=== PATIENT | female | born 1945 | race Caucasian/White ===

== ENCOUNTER 2016-08-30 23:26 | Emergency (ER) | payer MEDICARE, BC ==
[2016-08-31] MEDS ORDERED: hydrOXYzine HCl 50 MG/ML SDV IM ONE (00:31)
[2016-08-31] MEDS ORDERED: Menthol/Zinc Oxide Ointment 113 GM Tube TOP PRN (00:33)
[2016-08-31] MEDS ORDERED: Menthol/Zinc Oxide Ointment 113 GM Tube TOP ONE (00:35)
[2016-08-31 00:47] VITALS: BP 140/82
--- NOTE | 2016-09-02 10:36 | ER ---
DATE SEEN: 08/30/2016 CHIEF COMPLAINT: 1. Anal pain secondary to loose semi-formed stools. 2. Diarrhea x4 of loose semi-formed stools. 3. Intermittent history of irritable bowel syndrome. 4. Rectal pain with anal bleeding secondary to wiping her rectum too many times. 5. Mild abdominal pain. HISTORY OF PRESENT ILLNESS: This 71-year-old nulliparous nonsmoking woman went to a birthday alliance party at 1830 hours this 08/29/2016, had roast beef, sandwich, baked beans, and potato salad, and 1 hour later, began to have mild cramping and loose semi-formed stools. Prior to this, she had a long history of intermittent sinus problems and was treated for sinusitis secondary to associated symptoms of small bloody nasal discharge, nasal discomfort, sinus pressure associated with chronic allergies and chronic previous multiple nasal surgeries and turbinate resections and drainage of the sinuses. In the past, she had weekly allergy shots and also had intermittent intranasal steroid shots. The latter was stopped since the allergy shot was effective. Approximately 2 years ago, she has had significant sinus congestion problems. She had tried Neti pots in the past; however, that resulted in vomiting and nausea. Now, she uses Simply Saline, [employer] product, and that seems to diminish some of her nasal discomfort. She does not use bacitracin. PAST SURGICAL HISTORY: Previous nasal surgery several, hiatus hernia surgery, forefoot surgery, brain tumor surgery, facial surgery, multiple repair of cleft lip, tonsillectomy, deviated septum surgery x2, cholecystectomy, appendectomy. ALLERGIES: Multiple. Includes codeine, hydrocodone, latex, triamcinolone, Demerol, latex. CURRENT MEDICATIONS: 1. Nexium 40 mg daily. 2. Enalapril 40 mg daily. 3. Cranberry extract. 4. GenTeal 0.25-0.3% gel drops. 5. Thyroxine sodium 25 mcg. 6. Lactulose 10 g daily p.r.n. 7. Cortisone acetate. 8. Anusol-HC p.r.n. She thinks she has this cream at home but is not sure. She has not used it recently. 9. Gabapentin 400 mg daily. 10.Famotidine 20 mg daily. 11.Potassium chloride 20 mEq daily. 12.Ospemifene 60 mg daily. 13.Norethindrone 10 mg daily. 14.Zolpidem 5 mg daily. 15.Verapamil 180 mg daily. 16.Atorvastatin 20 mg daily. REVIEW OF SYSTEMS: Sinus headaches. No compromise of vision. CARDIOVASCULAR: No shortness of breath. No chest pain. No irregular heartbeat. GI: She has GERD with associated hiatus hernia. Mild intermittent abdominal discomfort with periods of loose stool and then followed by constipation (IBS). : Nulliparous. MUSCULOSKELETAL: Arthritis, mild. NEURO: Negative. Depression negative. PHYSICAL EXAMINATION: VITAL SIGNS: Blood pressure 136/76. Heart rate 84, respirations 18, oxygen saturation 97%, and temperature 36.6 degrees. CONSTITUTIONAL: The patient is in mild distress. Slightly overweight. Notable anterior facial surgery upper lip, which is quite remarkable. TMs negative. Pharynx without abnormality. NECK: Supple. No bruits, no masses, no thyromegaly. LUNGS: Clear to auscultation without rales, rhonchi, or wheezes. HEART: S1, S2. No murmur. No irregular rate and rhythm. ABDOMEN: Soft. No guarding. No rebound. Bowel sounds increased. No distention. No tympani. No CVA percussion tenderness. No pelvic exam or rectal exam performed. EXTREMITIES: Lower extremities without edema. Deep tendon reflexes are normoactive, upper and lower extremities. Cranial nerves 2 through 12 intact. Gait appropriate. ASSESSMENT: 1. Anal irritation, ulceration secondary to semi-loose stools. 2. Probable food poisoning after onset of symptoms 1 hour after onset of eating roast beef, baked beans, and potato salad. No one else got sick. 3. Possible Clostridium difficile. Specimen ordered to be obtained. 4. Tenth day of Augmentin treatment for sinusitis. 5. Multiple sinus surgeries, two septal surgeries, sinus drainage, turbinate resection, cholecystectomy, appendectomy, hiatus hernia surgery, forefoot surgery, brain tumor surgery, facial cleft lip repair, tonsillectomy. PLAN: 1. Use Anusol-HC (we do not have that in the hospital, but have a substitute), Risamine ointment which has aloe calamine, and chlorothymol. Apply p.r.n. 2. Shot of Vistaril 50 mg IM. 3. No pain medicine prescribed. ADDITIONAL COMMENT: The patient apparently had illness several years ago with vomiting of blood, started to have proximal tear of the esophagus, was hospitalized for several days. Resolved spontaneously, Ashley-Bhatt tear. The patient was seen at 0030 hours on 08/31/2016. /[id number] RADHA/HEIDI
== END 2016-08-31 00:50 | disposition home or self-care (01) ==
LOC: FB.ED 23:26
DX: K62.89 Other specified diseases of anus and rectum (principal); R19.7 Diarrhea, unspecified; Z90.49 Acquired absence of other specified parts of digestive tract; Z98.890 Other specified postprocedural states; Z91.040 Latex allergy status; Z88.5 Allergy status to narcotic agent; Z88.8 Allergy status to other drugs, medicaments and biological substances
CPT/HCPCS: 96372; 99283; A9270; J3410

== ENCOUNTER 2016-10-27 23:43 | Emergency (ER) | payer MEDICARE, BC ==
[2016-10-28] MEDS ORDERED: Sodium Chloride 0.9% 10 ML Syringe FLUSH PRN (00:03)
[2016-10-28] MEDS ORDERED: Ondansetron 4 MG/2 ML SDV IVPUSH ONE (00:05)
[2016-10-28] MEDS ORDERED: Ketorolac 30 MG/ML SDV IVPUSH ONE (00:11)
[2016-10-28] MEDS ORDERED: Sodium Chloride 0.9% 1,000 ML IV SCH (00:15)
--- NOTE | 2016-10-28 00:17 | EDM.PDOC ---
ED HPI GENERAL MEDICAL PROBLEM - General Chief Complaint: General Time Seen by Provider: 10/27/16 23:50 Source of Information: Reports: Patient History Limitations: Reports: No Limitations - History of Present Illness INITIAL COMMENTS - FREE TEXT/NARRATIVE: c/o N, V, and epigastric pain x 6h pt had "neck adjustment" at chiropracter at 3 PM, she had GI sxs since 6 PM, no diarrhea, did not eat supper, has felt hot and sweaty, no chills no BM today, had loose stools x 3 yesterday declined GI cocktail, says it causes N only abd surgery is HH repair 5-6y ago, had been on Nexium, no longer since surgery only cracker and cheese to eat since bfast has apt tomorrow in [place] to evaluate hematuria abd/pelvic CT with and without contrast 1m ago was neg never smoked - Related Data Allergies Allergy/AdvReac Type Severity Reaction Status Date / Time codeine Allergy Swelling Verified 10/27/16 23:57 hydrocodone Allergy Cannot Verified 10/27/16 23:57 Remember latex Allergy Cannot Verified 10/27/16 23:57 Remember phenylephrine HCl Allergy Cannot Verified 10/27/16 23:57 [From Mydfrin] Remember triamcinolone acetonide Allergy Other Verified 10/27/16 23:57 [From Kenalog] meperidine HCl [From Demerol] AdvReac Nausea and Verified 10/27/16 23:57 Vomiting Home Meds: Home Meds Carboxymethylcell/Hypromellose [GenTeal 0.25-0.3% Gel Drops] 1 drop EYEBOTH ASDIRECTED PRN 08/21/14 [History] Cranberry Extract [Cranberry] 1,000 mg PO DAILY 08/21/14 [History] Enalapril Maleate [Enalapril Maleate] 40 mg PO DAILY 08/21/14 [History] Esomeprazole [NexIUM] 40 mg PO DAILY 08/21/14 [History] Gabapentin [Gabapentin] 400 mg PO DAILY 08/21/14 [History] Hydrocortisone Acetate [Anucort-Hc] 25 mg RECTAL BID PRN 08/21/14 [History] Lactulose 10 gm PO DAILY PRN 08/21/14 [History] Levothyroxine Sodium [Synthroid] 25 mcg PO DAILY 08/21/14 [History] Meloxicam [Meloxicam] 15 mg PO DAILY 08/21/14 [History] Norethindrone [Aygestin] 10 mg PO DAILY 08/21/14 [History] Ospemifene [Osphena] 60 mg PO DAILY 08/21/14 [History] Potassium Chloride 20 meq PO BID 08/21/14 [History] Tretinoin 1 applic TOP DAILY 08/21/14 [History] Verapamil HCl [Verapamil Sr] 180 mg PO DAILY 08/21/14 [History] Zolpidem Tartrate [Ambien] 5 mg PO DAILY PRN 08/21/14 [History] atorvaSTATin [Lipitor] 20 mg PO DAILY 08/21/14 [History] Famotidine 20 mg PO DAILY #14 tablet 10/20/15 [Rx] Metoclopramide [Reglan] 5 mg PO QIDACANDBED #12 tablet 10/28/16 [Rx] Omeprazole 20 mg PO DAILY #10 cap.cr 10/28/16 [Rx] Past Medical History - Past Health History Medical/Surgical History: Denies Medical/Surgical History HEENT History: Reports: Impaired Vision Cardiovascular History: Reports: High Cholesterol, Hypertension Gastrointestinal History: Reports: Chronic Constipation, Hiatal Hernia Other Neuro History: Brain tumor-benign Endocrine/Metabolic History: Reports: Hypothyroidism - Past Surgical History Musculoskeletal Surgical History: Reports: Other (See Below) Social & Family History - Family History Family Medical History: Unobtainable - Tobacco Use Smoking Status *Q: Never Smoker - Caffeine Use Caffeine Use: Reports: Soda - Alcohol Use Days Per Week of Alcohol Use: 0 - Recreational Drug Use Recreational Drug Use: No ED ROS GENERAL - Review of Systems Review Of Systems: See Below Constitutional: Reports: Diaphoresis HEENT: Reports: No Symptoms Respiratory: Reports: No Symptoms Cardiovascular: Reports: No Symptoms Endocrine: Reports: No Symptoms GI/Abdominal: Reports: Abdominal Pain, Nausea, Vomiting : Reports: No Symptoms Musculoskeletal: Reports: No Symptoms Skin: Reports: No Symptoms Neurological: Reports: No Symptoms Psychiatric: Reports: No Symptoms Hematologic/Lymphatic: Reports: No Symptoms Immunologic: Reports: No Symptoms ED EXAM, GENERAL - Physical Exam Exam: See Below Exam Limited By: No Limitations General Appearance: Alert, WD/WN, Mild Distress Ears: Normal External Exam, Hearing Grossly Normal Nose: Normal Inspection, Normal Mucosa, No Blood Throat/Mouth: Normal Inspection, Normal Lips, Normal Teeth, Normal Gums, Normal Voice, No Airway Compromise Head: Atraumatic, Normocephalic Neck: Normal Inspection, Supple, Non-Tender, Full Range of Motion Respiratory/Chest: No Respiratory Distress, Lungs Clear, Normal Breath Sounds, No Accessory Muscle Use, Chest Non-Tender Cardiovascular: Regular Rate, Rhythm, No Edema, No Gallop, No JVD, No Rub GI/Abdominal: Normal Bowel Sounds, Soft, No Organomegaly, No Distention, No Mass , Other (1+ epigastric tender) Back Exam: Normal Inspection, Full Range of Motion, NT Extremities: Normal Inspection, Normal Range of Motion, Non-Tender, No Pedal Edema, Other (dec'd turgor UE without tenting) Neurological: Alert, Oriented, CN II-XII Intact, Normal Cognition, No Motor/ Sensory Deficits Psychiatric: Normal Affect, Normal Mood Skin Exam: Warm, Dry, Intact, Normal Color, No Rash Lymphatic: No Adenopathy Course - Vital Signs Last Recorded V/S: Last Vital Signs Temp 36.8 C 10/28/16 01:45 Pulse 76 10/28/16 00:01 Resp 20 10/28/16 01:45 BP 124/72 10/28/16 01:45 Pulse Ox 98 10/28/16 01:45 - Orders/Labs/Meds Orders: Active Orders 24 hr Category Date Time Status EKG Documentation Completion [RC] ASDIRECTED Care 10/28/16 00:07 Active Abdomen 2V AP Flat Upright [CR] Stat Exams 10/28/16 00:15 Ordered Abdomen 2V AP Flat Upright [CR] Stat Exams 10/28/16 00:15 Taken LIPASE [REF] Stat Lab 10/28/16 00:30 Received Sodium Chloride 0.9% [Normal Saline] 1,000 ml Med 10/28/16 00:15 Active IV ASDIRECTED Sodium Chloride 0.9% [Saline Flush] Med 10/28/16 00:03 Active 10 ml FLUSH ASDIRECTED PRN Saline Lock Insert [OM.PC] Routine Oth 10/28/16 00:03 Ordered EKG 12 Lead [EK] Routine Ther 10/28/16 00:07 Ordered Medication Orders Sodium Chloride (Normal Saline) 1,000 mls @ 999 mls/hr IV ASDIRECTED JESE Stop: 11/01/16 00:04 Last Admin: 10/28/16 00:25 Dose: 999 mls/hr Sodium Chloride (Saline Flush) 10 ml FLUSH ASDIRECTED PRN PRN Reason: Keep Vein Open Last Admin: 10/28/16 00:26 Dose: 10 ml Labs: Laboratory Tests 10/28/16 10/28/16 10/28/16 Range/Units 00:30 00:30 00:30 WBC 12.1 H (4.5-12.0) X10-3/uL RBC 4.65 (3.23-5.20) x10(6)uL Hgb 14.4 (11.5-15.5) g/dL Hct 42.7 (30.0-51.3) % MCV 91.8 (80-96) fL MCH 31.0 (27.7-33.6) pg MCHC 33.7 (32.2-35.4) g/dL RDW 12.5 (11.5-15.5) % Plt Count 254 (125-369) X10(3)uL MPV 10.1 (7.4-10.4) fL Add Manual Diff Yes Neutrophils % (Manual) 88 H (46-82) % Band Neutrophils % 2 (0-6) % Lymphocytes % (Manual) 7 L (13-37) % Monocytes % (Manual) 3 L (4-12) % Sodium 140 (135-145) mmol/L Potassium 3.7 (3.5-5.3) mmol/L Chloride 104 (100-110) mmol/L Carbon Dioxide 22 L (23-29) mmol/L BUN 15 D (8-23) mg/dL Creatinine 0.9 (0.6-1.3) mg/dL Est Cr Clr Drug Dosing 52.34 mL/min Estimated GFR (MDRD) > 60 (>60) BUN/Creatinine Ratio 16.7 (9-20) Glucose 150 H (80-116) mg/dL Calcium 10.8 H (8.6-10.2) mg/dL Total Bilirubin 0.9 (0.1-1.3) mg/dL AST 28 H (5-27) IU/L ALT 28 H D (14-26) IU/L Alkaline Phosphatase 67 (56-112) IU/L Troponin I < 0.01 L (0.02-0.06) NG/ML C-Reactive Protein 1.0 (0.0-1.0) mg/dL Total Protein 8.3 H (6.0-8.0) g/dL Albumin 4.7 H (3.2-4.6) g/dL Globulin 3.6 g/dL Albumin/Globulin Ratio 1.3 Amylase 61 (28-100) U/L Urine Color (YELLOW) Urine Appearance (CLEAR) Urine pH (5.0-6.5) Ur Specific [place] (1.010-1.025) Urine Protein (NEGATIVE) mg/dL Urine Glucose (UA) (NEGATIVE) mg/dL Urine Ketones (NEGATIVE) mg/dL Urine Occult Blood (NEGATIVE) Urine Nitrite (NEGATIVE) Urine Bilirubin (NEGATIVE) Urine Urobilinogen (NEGATIVE) mg/dL Ur Leukocyte Esterase (NEGATIVE) Urine RBC (0) Urine WBC (0) Ur Squamous Epith Cells (NS,R,O) Urine Bacteria (NS) Urine Mucus (NS) 10/28/16 Range/Units 01:30 WBC (4.5-12.0) X10-3/uL RBC (3.23-5.20) x10(6)uL Hgb (11.5-15.5) g/dL Hct (30.0-51.3) % MCV (80-96) fL MCH (27.7-33.6) pg MCHC (32.2-35.4) g/dL RDW (11.5-15.5) % Plt Count (125-369) X10(3)uL MPV (7.4-10.4) fL Add Manual Diff Neutrophils % (Manual) (46-82) % Band Neutrophils % (0-6) % Lymphocytes % (Manual) (13-37) % Monocytes % (Manual) (4-12) % Sodium (135-145) mmol/L Potassium (3.5-5.3) mmol/L Chloride (100-110) mmol/L Carbon Dioxide (23-29) mmol/L BUN (8-23) mg/dL Creatinine (0.6-1.3) mg/dL Est Cr Clr Drug Dosing mL/min Estimated GFR (MDRD) (>60) BUN/Creatinine Ratio (9-20) Glucose (80-116) mg/dL Calcium (8.6-10.2) mg/dL Total Bilirubin (0.1-1.3) mg/dL AST (5-27) IU/L ALT (14-26) IU/L Alkaline Phosphatase (56-112) IU/L Troponin I (0.02-0.06) NG/ML C-Reactive Protein (0.0-1.0) mg/dL Total Protein (6.0-8.0) g/dL Albumin (3.2-4.6) g/dL Globulin g/dL Albumin/Globulin Ratio Amylase (28-100) U/L Urine Color Yellow (YELLOW) Urine Appearance Slightly cloudy (CLEAR) Urine pH 7.0 H (5.0-6.5) Ur Specific [place] 1.010 (1.010-1.025) Urine Protein 30 H (NEGATIVE) mg/dL Urine Glucose (UA) Normal (NEGATIVE) mg/dL Urine Ketones 15 H (NEGATIVE) mg/dL Urine Occult Blood Large H (NEGATIVE) Urine Nitrite Negative (NEGATIVE) Urine Bilirubin Negative (NEGATIVE) Urine Urobilinogen Normal (NEGATIVE) mg/dL Ur Leukocyte Esterase Negative (NEGATIVE) Urine RBC 5-10 (0) Urine WBC 0-5 (0) Ur Squamous Epith Cells Moderate H (NS,R,O) Urine Bacteria Few H (NS) Urine Mucus Few H (NS) Meds: Medications Generic Name Dose Route Start Last Admin Trade Name Freq PRN Reason Stop Dose Admin Sodium Chloride 1,000 mls @ 999 mls/hr 10/28/16 00:15 10/28/16 00:25 Normal Saline IV 11/01/16 00:04 999 mls/hr ASDIRECTED JESE Administration Sodium Chloride 10 ml 10/28/16 00:03 10/28/16 00:26 Saline Flush FLUSH 10 ml ASDIRECTED PRN Administration Keep Vein Open Discontinued Medications Generic Name Dose Route Start Last Admin Trade Name Freq PRN Reason Stop Dose Admin Al Hydroxide/Mg Hydroxide 30 0 ml 10/28/16 00:07 10/28/16 00:41 ml/ Lidocaine HCl 15 ml PO 10/28/16 00:08 Not Given ONETIME ONE Ketorolac Tromethamine 15 mg 10/28/16 00:11 10/28/16 00:24 Toradol IVPUSH 10/28/16 00:12 15 mg ONETIME ONE Administration Lidocaine HCl Confirm 10/28/16 00:22 10/28/16 00:40 Xylocaine 2% Viscous Administered 10/28/16 00:23 Not Given Dose 15 ml .ROUTE .STK-MED ONE Ondansetron HCl 4 mg 10/28/16 00:05 10/28/16 00:25 Zofran IVPUSH 10/28/16 00:06 4 mg ONETIME ONE Administration - Re-Assessments/Exams Free Text/Narrative Re-Assessment/Exam: 10/28/16 01:53 pt states she is feeling much better after 1 liter NS and Toradol and Zofran, abd is still mildly distended, no epigastric tenderness. KUB shows a large amount of air distending the stomach, pt reports she was swallowing air this afternoon when driving back from [place]. 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 (which pt attributes to GI cocktail), she was hospitalized in [place] x 4d, no source apparently found labs c/w dehydration (inc'd alb and TP and calcium), mild inc'd LFTs is old, WBC 12 with slight shift c/w extreme anxiety and vomiting when she arrived pt did take promethazine 25 mg PO at home home along with cyclobenzaprine 10 mg PO after her chiropractor visit will defer on placing an NG to decompress stomach as pt is now without sxs 10/28/16 02:24 u/a showing ketones and 5-10 RBC, pt states no EGD was done 1y ago, which will be a consideration if she has more sxs, does take Tums prn and took some this PM, prefers omeprazole to Nexium as it will be covered by her insurance Departure - Departure Time of Disposition: 02:27 Disposition: Home, Self-Care 01 Condition: Good Clinical Impression: Stomach spasm, Air swallowing Gastritis Qualifiers: Gastritis type: unspecified gastritis Chronicity: acute Gastritis bleeding: without bleeding Qualified Code(s): K29.00 - Acute gastritis without bleeding - Discharge Information Prescriptions: Metoclopramide [Reglan] 5 mg PO QIDACANDBED #12 tablet Omeprazole 20 mg PO DAILY #10 cap.cr Forms: ED Department Discharge Additional Instructions: To decrease acid production, take omeprazole 20 mg 1 tab daily for 10 days. To relax the stomach (and help with nausea), take metoclopramide 5 mg before meals and bedtime for 3 days. To neutralize acid, take two Tums 1-2 hours after meals and bedtime for 3 days. Increase fluids, at least 2 liters today without caffeine. See your doctor in 2-3 days. Return to ED if you are feeling worse. Call your Physician or Return to Emergency Department if: * Your condition worsens in any way. * You develop fever greater than 100.4. * You have vomitting that does not stop with medications. * You have pain that is not controlled with medications. - My Orders Last 24 Hours: My Active Orders 10/28/16 00:03 Sodium Chloride 0.9% [Saline Flush] 10 ml FLUSH ASDIRECTED PRN Saline Lock Insert [OM.PC] Routine 10/28/16 00:07 EKG Documentation Completion [RC] ASDIRECTED EKG 12 Lead [EK] Routine 10/28/16 00:15 Abdomen 2V AP Flat Upright [CR] Stat Abdomen 2V AP Flat Upright [CR] Stat Sodium Chloride 0.9% [Normal Saline] 1,000 ml IV ASDIRECTED 10/28/16 00:30 LIPASE [REF] Stat - Assessment/Plan Last 24 Hours: My Active Orders 10/28/16 00:03 Sodium Chloride 0.9% [Saline Flush] 10 ml FLUSH ASDIRECTED PRN Saline Lock Insert [OM.PC] Routine 10/28/16 00:07 EKG Documentation Completion [RC] ASDIRECTED EKG 12 Lead [EK] Routine 10/28/16 00:15 Abdomen 2V AP Flat Upright [CR] Stat Abdomen 2V AP Flat Upright [CR] Stat Sodium Chloride 0.9% [Normal Saline] 1,000 ml IV ASDIRECTED 10/28/16 00:30 LIPASE [REF] Stat
[2016-10-28] MEDS: Alum Hydroxide/Mag Hydroxide 30 ML, Lidocaine 2% 15 ML PO ONE ×4 (00:20→00:41)
[2016-10-28] MEDS ORDERED: Lidocaine 2% Viscous Solution 15 ML Cup ONE (00:22)
[2016-10-28 02:13] VITALS: BP 124/72
[2016-10-28] MEDS ORDERED: Pantoprazole 40 MG Tab.CR PO ONE (02:26)
--- NOTE | 2016-10-29 13:53 | CR ---
INDICATION: Epigastric pain. History of constipation. ABDOMEN SUPINE AND ERECT: FINDINGS: The patient just recently had a CT scan abdomen performed on 2016. I have that study for review. On the current x-rays, the stomach is distended. It is much more so distended than on the earlier CT. There is prominent fluid level on the upright view. I did go back and look at that CT. I do not see a definite mass or specific explanation for the distended stomach on that earlier CT. It is possible that the patient has just recently eaten. Or, for what ever reason, the patient may have some delayed passage of contents from the stomach. I am not necessarily certain that the distended stomach is pathologic for this patient. It may not be unreasonable to do a follow-up x-ray to confirm that the gastric distention does indeed resolve, however. Otherwise, there is some air and fluid that is identified throughout the remainder of the small and large bowel. I do not see disproportion of dilatation in either small or large bowel that would suggest either small or large bowel obstruction. As by CT, there is a moderate amount of stool throughout the colon. There has been previous surgery. The patient has had a previous spine fusion in the lower thoracic/upper lumbar region. 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 There are a few phleboliths in the pelvis. There is some costochondral cartilage calcification. No other unexpected masses or fluid collections. IMPRESSION: 1. The most pronounced finding on the study is a very distended stomach with a prominent fluid level. This appearance is much more pronounced than on earlier imaging from 09/24/2016. I am not entirely certain as to the exact significance of this appearance for this patient. Please clinically correlate for any history of vomiting or symptoms to suggest gastric outlet obstruction. It may not be unreasonable to do a follow-up x-ray to confirm that this appearance does indeed resolve. 2. I otherwise do not see any other potentially acute, diagnostic abnormalities. [facility]
== END 2016-10-28 02:30 | disposition home or self-care (01) ==
LOC: FB.ED 23:43
DX: K29.00 Acute gastritis without bleeding (principal); K31.89 Other diseases of stomach and duodenum; H54.7 Unspecified visual loss; E78.00 Pure hypercholesterolemia, unspecified; I10 Essential (primary) hypertension; E03.9 Hypothyroidism, unspecified; Z88.5 Allergy status to narcotic agent; Z91.040 Latex allergy status; Z88.8 Allergy status to other drugs, medicaments and biological substances; Z79.899 Other long term (current) drug therapy; Z98.890 Other specified postprocedural states
CPT/HCPCS: 36415; 74020; 80053; 81001; 82150; 83690; 84484; 85025; 86140; 93005; 96361; 96374; 96375; 99284; A9270; J1885; J2405; J7040; J7050

== ENCOUNTER 2017-06-08 20:21 | Inpatient (IN) | payer MEDICARE, BC ==
--- NOTE | 2017-06-08 20:42 | EDM.PDOC ---
ED HPI GENERAL MEDICAL PROBLEM - General Chief Complaint: Respiratory Problem Stated Complaint: SINUSINFECTION Time Seen by Provider: 06/08/17 20:21 Source of Information: Reports: Patient, Family History Limitations: Reports: Physical Impairment (dizzy and nauseated) - History of Present Illness INITIAL COMMENTS - FREE TEXT/NARRATIVE: 72 y.o.w.f with multiple medical issues came to the ed due to sinus tenderness weakness and orthostatic hypotension. No N/V/D. pt has an apointment on 2017 with her pharmacist because she is on too many meds. BP 127/88 pulse 105 RR 18 temp 38.1 Onset Date: 05/26/17 Onset Time: 07:00 Duration: Week(s):, Getting Worse, Intermittent Location: Reports: Generalized Quality: Reports: Ache (RUQ), Burning Severity: Moderate Improves with: Reports: None Worsens with: Reports: None Context: Reports: Sick Contact ((?)) Associated Symptoms: Reports: Malaise, Nausea/Vomiting, Weakness - Related Data Allergies Allergy/AdvReac Type Severity Reaction Status Date / Time codeine Allergy Swelling Verified 06/08/17 20:35 hydrocodone Allergy Cannot Verified 06/08/17 20:35 Remember latex Allergy Cannot Verified 06/08/17 20:35 Remember phenylephrine HCl Allergy Cannot Verified 06/08/17 20:35 [From Mydfrin] Remember triamcinolone acetonide Allergy Other Verified 06/08/17 20:35 [From Kenalog] meperidine HCl [From Demerol] AdvReac Nausea and Verified 06/08/17 20:35 Vomiting Home Meds: Home Meds Carboxymethylcell/Hypromellose [GenTeal 0.25-0.3% Gel Drops] 1 drop EYEBOTH ASDIRECTED PRN 08/21/14 [History] Cranberry Extract [Cranberry] 1,000 mg PO DAILY 08/21/14 [History] Enalapril Maleate [Enalapril Maleate] 20 mg PO DAILY 08/21/14 [History] Gabapentin [Gabapentin] 400 mg PO DAILY 08/21/14 [History] Hydrocortisone Acetate [Anucort-Hc] 25 mg RECTAL BID PRN 08/21/14 [History] Lactulose 10 gm PO DAILY PRN 08/21/14 [History] Tretinoin 1 applic TOP DAILY 08/21/14 [History] Verapamil HCl [Verapamil Sr] 180 mg PO DAILY 08/21/14 [History] Amoxicillin/Potassium Clav [Augmentin 875-125 Tablet] 1 each PO BID #20 tablet 06/08/17 [Rx] Bacillus Coagulans [Probiotic] 1 each PO DAILY 06/08/17 [History] Hydrochlorothiazide 25 mg PO DAILY 06/08/17 [History] Hydrocortisone [Procto-Med Hc] 1 applic TOP BID PRN 06/08/17 [History] Levothyroxine [Synthroid] 50 mcg PO ACBREAKFAST 06/08/17 [History] Loratadine [Claritin] 10 mg PO DAILY 06/08/17 [History] Montelukast Sodium [Singulair] 10 mg PO BEDTIME 06/08/17 [History] Ondansetron [Zofran] 8 mg PO Q8H 06/08/17 [History] Pantoprazole Sodium [Protonix] 40 mg PO DAILY 06/08/17 [History] Rosuvastatin [Crestor] 10 mg PO DAILY 06/08/17 [History] Venlafaxine [Effexor XR] 75 mg PO DAILY 06/08/17 [History] guaiFENesin [Mucinex] 600 mg PO BID PRN 06/08/17 [History] Tetanus, Diphtheria Tox,Adult [Tetanus Diphtheria Toxoids] 0.5 ml IM ONETIME #1 vial 06/09/17 [Rx] Past Medical History - Past Health History Medical/Surgical History: Denies Medical/Surgical History HEENT History: Reports: Impaired Vision Cardiovascular History: Reports: High Cholesterol, Hypertension Gastrointestinal History: Reports: Chronic Constipation, Hiatal Hernia Other Neuro History: Brain tumor-benign Endocrine/Metabolic History: Reports: Hypothyroidism - Past Surgical History Musculoskeletal Surgical History: Reports: Other (See Below) Social & Family History - Family History Family Medical History: Unobtainable - Tobacco Use Smoking Status *Q: Never Smoker Second Hand Smoke Exposure: No - Caffeine Use Caffeine Use: Reports: Soda - Alcohol Use Days Per Week of Alcohol Use: 0 - Recreational Drug Use Recreational Drug Use: No ED ROS GENERAL - Review of Systems Review Of Systems: See Below Constitutional: Reports: Malaise, Weakness, Fatigue HEENT: Reports: Nosebleed (resolved [employer]), Rhinitis, Sinus Problem Respiratory: Reports: No Symptoms Cardiovascular: Reports: Blood Pressure Problem, Lightheadedness Endocrine: Reports: No Symptoms GI/Abdominal: Reports: Abdominal Pain (RUQ), Decreased Appetite, Nausea : Reports: No Symptoms Musculoskeletal: Reports: No Symptoms Skin: Reports: No Symptoms Neurological: Reports: Dizziness Psychiatric: Reports: No Symptoms Hematologic/Lymphatic: Reports: No Symptoms Immunologic: Reports: No Symptoms ED EXAM, GENERAL - Physical Exam Exam: See Below Exam Limited By: Other (weak) General Appearance: Alert, Mild Distress, Thin Eye Exam: Bilateral Eye: Nystagmus (bilat) Ears: Normal External Exam Ear Exam: Bilateral Ear: Auricle Normal Nose: Normal Inspection, Normal Mucosa Throat/Mouth: Normal Inspection Head: Atraumatic, Normocephalic Neck: Normal Inspection, Supple, Non-Tender, Full Range of Motion Respiratory/Chest: No Respiratory Distress, Lungs Clear, Normal Breath Sounds, Chest Non-Tender Cardiovascular: Normal Peripheral Pulses, Regular Rate, Rhythm, No Edema, No Gallop, No Murmur GI/Abdominal: Normal Bowel Sounds, Tender (RUQ of abdomen) (Female) Exam: Deferred Rectal (Female) Exam: Deferred Back Exam: Normal Inspection, Full Range of Motion Extremities: Normal Inspection, Normal Range of Motion, Non-Tender, No Pedal Edema Neurological: Alert, Oriented, CN II-XII Intact, Normal Cognition, Abnormal Gait (weak) Psychiatric: Normal Affect, Normal Mood Skin Exam: Warm, Dry, Intact, Normal Color, No Rash Lymphatic: No Adenopathy EKG INTERPRETATION EKG Date: 06/08/17 Time: 23:20 Rhythm: NSR Rate (Beats/Min): 99 [place]: Normal P-Wave: Present QRS: Normal ST-T: Normal QT: Normal Comparison: NA - No Prior EKG Course - Vital Signs Text/Narrative:: 72 y.o.w.f with multiple medical issues came to the ed due to sinus tenderness weakness and orthostatic hypotension. No N/V/D. pt has an apointment on 2017 with her pharmacist because she is on too many meds. BP 127/88 pulse 105 RR 18 temp 38.1 Her sBP dropped from 143 to 104 from supine to standing position PE: weak appering 72 y.o.w.f Imaging: Max facial: Sinusitis Labs: CBC nl BMP nl her GFR was 53 however Impression: Orthostatic hypotension, Nausea, RUQ abd. pain (gall bladder?), Dizziness, weakness, sinusitis. Multiple medical issues(?), severe nausea Tx: NS, Abx Reglan Reexam; Pt felt initially better but suddenly go again nauseated and felt week. She now had RUQ abd. pain. Plan: Admit to [facility]. Last Recorded V/S: Last Vital Signs Temp 37.6 C 06/09/17 04:00 Pulse 89 06/09/17 04:00 Resp 18 06/09/17 04:00 BP 123/77 06/09/17 04:00 Pulse Ox 97 06/09/17 04:00 - Orders/Labs/Meds Orders: Active Orders 24 hr Category Date Time Status Max Facial Sinus wo Cont [CT] Stat Exams 06/08/17 20:39 Taken Sodium Chloride 0.9% [Normal Saline] 1,000 ml Med 06/08/17 21:45 Active IV ASDIRECTED Medication Orders Gabapentin (Neurontin) 400 mg PO DAILY JESE Sodium Chloride (Normal Saline) 1,000 mls @ 125 mls/hr IV ASDIRECTED JESE Last Admin: 06/08/17 21:30 Dose: 999 mls/hr Promethazine HCl 12.5 mg/ (Sodium Chloride) 50.5 mls @ 200 mls/hr IV Q6H PRN PRN Reason: Nausea/Vomiting Levothyroxine Sodium (Synthroid) 50 mcg PO ACBREAKFAST JESE Non-Formulary Medication (Tretinoin [Tretinoin]) 1 applic TOP DAILY JESE Non-Formulary Medication (Verapamil Hcl [Verapamil Sr]) 180 mg PO DAILY JESE Pantoprazole Sodium (Protonix) 40 mg PO DAILY JESE Labs: Laboratory Tests 06/08/17 06/08/17 06/08/17 Range/Units 20:55 20:55 20:55 WBC 5.3 (4.5-12.0) X10-3/uL RBC 4.10 (3.23-5.20) x10(6)uL Hgb 12.7 (11.5-15.5) g/dL Hct 36.9 (30.0-51.3) % MCV 89.9 (80-96) fL MCH 31.1 (27.7-33.6) pg MCHC 34.5 (32.2-35.4) g/dL RDW 12.9 (11.5-15.5) % Plt Count 182 (125-369) X10(3)uL MPV 9.5 (7.4-10.4) fL Add Manual Diff Yes Neutrophils % (Manual) 75 (46-82) % Lymphocytes % (Manual) 17 (13-37) % Monocytes % (Manual) 8 (4-12) % Sodium 143 (135-145) mmol/L Potassium 3.5 (3.5-5.3) mmol/L Chloride 105 (100-110) mmol/L Carbon Dioxide 27 (21-32) mmol/L BUN 16 (7-18) mg/dL Creatinine 1.0 (0.55-1.02) mg/dL Est Cr Clr Drug Dosing 48.30 mL/min Estimated GFR (MDRD) 55 L (>60) BUN/Creatinine Ratio 16.0 (9-20) Glucose 112 (80-116) mg/dL Calcium 9.7 (8.6-10.2) mg/dL Total Bilirubin 0.8 (0.1-1.3) mg/dL Direct Bilirubin 0.20 (0.10-0.20) mg/dL AST 28 H (5-25) IU/L ALT 35 (12-36) U/L Alkaline Phosphatase 91 (56-112) IU/L Troponin I (<0.017-0.056) ng/mL Total Protein 7.5 (6.0-8.0) g/dL Albumin 4.0 (3.2-4.6) g/dL Amylase 29 (25-115) U/L Urine Color (YELLOW) Urine Appearance (CLEAR) Urine pH (5.0-6.5) Ur Specific Rhododendron (1.010-1.025) Urine Protein (NEGATIVE) mg/dL Urine Glucose (UA) (NEGATIVE) mg/dL Urine Ketones (NEGATIVE) mg/dL Urine Occult Blood (NEGATIVE) Urine Nitrite (NEGATIVE) Urine Bilirubin (NEGATIVE) Urine Urobilinogen (NEGATIVE) mg/dL Ur Leukocyte Esterase (NEGATIVE) Urine RBC (0) Urine WBC (0) Ur Squamous Epith Cells (NS,R,O) Urine Bacteria (NS) Urine Yeast (NS) 06/08/17 06/08/17 Range/Units 20:55 22:20 WBC (4.5-12.0) X10-3/uL RBC (3.23-5.20) x10(6)uL Hgb (11.5-15.5) g/dL Hct (30.0-51.3) % MCV (80-96) fL MCH (27.7-33.6) pg MCHC (32.2-35.4) g/dL RDW (11.5-15.5) % Plt Count (125-369) X10(3)uL MPV (7.4-10.4) fL Add Manual Diff Neutrophils % (Manual) (46-82) % Lymphocytes % (Manual) (13-37) % Monocytes % (Manual) (4-12) % Sodium (135-145) mmol/L Potassium (3.5-5.3) mmol/L Chloride (100-110) mmol/L Carbon Dioxide (21-32) mmol/L BUN (7-18) mg/dL Creatinine (0.55-1.02) mg/dL Est Cr Clr Drug Dosing mL/min Estimated GFR (MDRD) (>60) BUN/Creatinine Ratio (9-20) Glucose (80-116) mg/dL Calcium (8.6-10.2) mg/dL Total Bilirubin (0.1-1.3) mg/dL Direct Bilirubin (0.10-0.20) mg/dL AST (5-25) IU/L ALT (12-36) U/L Alkaline Phosphatase (56-112) IU/L Troponin I < 0.017 L (<0.017-0.056) ng/mL Total Protein (6.0-8.0) g/dL Albumin (3.2-4.6) g/dL Amylase (25-115) U/L Urine Color Yellow (YELLOW) Urine Appearance Slightly cloudy (CLEAR) Urine pH 8.0 H (5.0-6.5) Ur Specific Rhododendron 1.010 (1.010-1.025) Urine Protein Negative (NEGATIVE) mg/dL Urine Glucose (UA) Normal (NEGATIVE) mg/dL Urine Ketones 15 H (NEGATIVE) mg/dL Urine Occult Blood Large H (NEGATIVE) Urine Nitrite Negative (NEGATIVE) Urine Bilirubin Small H (NEGATIVE) Urine Urobilinogen 1 H (NEGATIVE) mg/dL Ur Leukocyte Esterase Negative (NEGATIVE) Urine RBC 0-5 (0) Urine WBC 0-5 (0) Ur Squamous Epith Cells Moderate H (NS,R,O) Urine Bacteria Few H (NS) Urine Yeast Rare H (NS) Meds: Medications Generic Name Dose Route Start Last Admin Trade Name Ileana PRN Reason Stop Dose Admin Gabapentin 400 mg 06/09/17 09:00 Neurontin PO DAILY JESE Sodium Chloride 1,000 mls @ 125 mls/hr 06/08/17 21:45 06/08/17 21:30 Normal Saline IV 999 mls/hr ASDIRECTED JESE Administration Promethazine HCl 12.5 mg/ 50.5 mls @ 200 mls/hr 06/08/17 23:41 Sodium Chloride IV Q6H PRN Nausea/Vomiting Levothyroxine Sodium 50 mcg 06/09/17 07:30 Synthroid PO ACBREAKFAST JESE Non-Formulary Medication 1 applic 06/09/17 09:00 Tretinoin [Tretinoin] TOP DAILY JESE Non-Formulary Medication 180 mg 06/09/17 09:00 Verapamil Hcl [Verapamil Sr] PO DAILY JESE Pantoprazole Sodium 40 mg 06/09/17 09:00 Protonix PO DAILY JESE Discontinued Medications Generic Name Dose Route Start Last Admin Trade Name Ileana PRN Reason Stop Dose Admin Amoxicillin/Clavulanate Potassium 1 tab 06/08/17 22:53 06/08/17 22:57 Augmentin 875 Mg/125 Mg PO 06/08/17 22:54 1 tab ONETIME ONE Administration Meclizine HCl 25 mg 06/08/17 23:32 06/09/17 00:28 Antivert PO 06/08/17 23:33 25 mg ONETIME ONE Administration Metoclopramide HCl 10 mg 06/08/17 23:01 06/08/17 23:05 Reglan IVPUSH 06/08/17 23:02 10 mg ONETIME ONE Administration Potassium Chloride 40 meq 06/08/17 21:40 06/08/17 21:49 Klor-Con M20 PO 06/08/17 21:41 40 meq ONETIME ONE Administration Tetanus/Diphtheria Toxoids 0.5 ml 06/09/17 08:34 Tenivac IM 06/09/17 08:35 .ONCE ONE Departure - Departure Time of Disposition: 22:51 Disposition: Refer to Observation Condition: Good Clinical Impression: Orthostatic hypotension, Sinusitis, Hypokalemia - Discharge Information - My Orders Last 24 Hours: My Active Orders 06/08/17 20:39 Max Facial Sinus wo Cont [CT] Stat 06/08/17 21:45 Sodium Chloride 0.9% [Normal Saline] 1,000 ml IV ASDIRECTED - Assessment/Plan Last 24 Hours: My Active Orders 06/08/17 20:39 Max Facial Sinus wo Cont [CT] Stat 06/08/17 21:45 Sodium Chloride 0.9% [Normal Saline] 1,000 ml IV ASDIRECTED
[2017-06-08] MEDS ORDERED: Potassium Chloride 20 MEQ Tab.ER PO ONE (21:40)
[2017-06-08] MEDS ORDERED: Sodium Chloride 0.9% 1,000 ML IV SCH (21:45)
[2017-06-08] MEDS ORDERED: Amoxicillin/Clavulanate K 875-125 MG Tab PO ONE (22:53)
[2017-06-08] MEDS ORDERED: Metoclopramide 10 MG/2 ML SDV IVPUSH ONE (23:01)
[2017-06-08] MEDS ORDERED: Meclizine 25 MG Tab PO ONE (23:32)
[2017-06-09] MEDS ORDERED: Levothyroxine 50 MCG Tab PO SCH (07:30)
[2017-06-09] MEDS ORDERED: Diphtheria/Tetanus Toxoids,Adult (Td) 0.5 ML SDV IM ONE (08:34)
[2017-06-09] MEDS ORDERED: Pantoprazole 40 MG Tab.CR PO SCH (09:00)
[2017-06-09] MEDS ORDERED: VERAPAMIL HCL 180 MG PO SCH (09:00)
[2017-06-09] MEDS ORDERED: TRETINOIN TOP SCH (09:00)
[2017-06-09] MEDS ORDERED: Gabapentin 400 MG Cap PO SCH (09:00)
[2017-06-09] MEDS ORDERED: cefTRIAXone 1,000 MG in Sodium Chloride 0.9% 50 ML IV SCH (09:15)
[2017-06-09] MEDS: D5 1/2 NS w/ 10 mEq/L KCl 1,000 ML IV SCH ×2 (09:36→23:01)
[2017-06-09] MEDS: cefTRIAXone 1,000 MG VIAL IV SCH (09:48)
[2017-06-09] MEDS: Sodium Chloride 0.9% 10 ML Syringe FLUSH PRN (10:48)
--- NOTE | 2017-06-09 11:08 | US ---
INDICATION: Right upper quadrant abdominal pain. ULTRASOUND ABDOMEN COMPLETE: Multiple ultrasonic images revealed the common bile duct to be near the upper limits of normal in size at 6 mm. The gallbladder was normal in size, but did include a movable calculus, measuring 1.14 cm. The gallbladder measured 8.2 x 2.5 x 3.6 cm. No wall thickening, pericholecystic fluid, or positive ultrasonic Bauer sign was noted. No sludge was seen. The liver had a normal appearance and measured approximately 13.7 cm anteroposterior. The spleen appeared normal, measuring 7.4 x 8.3 x 8.9 cm. The kidneys were unremarkable and measured 11.7 x 4.7 x 5.7 cm on the right and 7.2 x 4.4 x 3.7 cm on the left. The IVC was phasic. The abdominal aorta was normal in caliber, measuring a maximum of 1.9 cm. The pancreas appeared normal. No organomegaly or mass lesions were identified. IMPRESSION: 1. Cholelithiasis. No definite evidence of cholecystitis. 2. Common bile duct 6 mm, within normal limits, but near the upper limits of normal. MTDD
--- NOTE | 2017-06-09 11:49 | CR ---
INDICATION: Cough and fever. CHEST: PA and lateral views of the chest 06/09/2017 were compared with 2011, and again revealed a minimal dextroconvex scoliosis of the lower thoracic spine. The aorta is slightly tortuous with minimal calcification in the arch, similar to the previous study. The heart appears to be near the upper limits of normal in size, as previously, with no specific chamber enlargement identified. There is blunting of the posterior sulcus on the left, which could be related to fibrosis or possibly a minimal pleural effusion. No definite active infiltrate or significant sized effusion was identified. IMPRESSION: 1. No definite acute process, but difficult to exclude a minimal left pleural effusion versus minimal pleural fibrosis posteriorly on the left. 2. ASD aorta. 3. Mild scoliosis. MTDD
[2017-06-09] MEDS ORDERED: Pantoprazole 40 MG Tab.CR PO PRN (13:00)
[2017-06-09] MEDS ORDERED: TRETINOIN TOP PRN (13:00)
[2017-06-09] MEDS: Levothyroxine 50 MCG Tab*PTOM PO SCH (15:02)
[2017-06-09] MEDS: VERAPAMIL 180 MG PO SCH (15:02)
--- NOTE | 2017-06-09 15:08 | HP ---
ADMISSION DATE: 06/08/2017 HISTORY OF PRESENT ILLNESS: Roz Bravo is a 72-year-old single female, who was admitted through [facility]. She has been ill for about the last month's duration. She had a recent clinical visit at [facility]. Rhinosinusitis, completed a course of antibiotics. Cough, congestion, and mild reduced well-being were persistent. Had a visit with Internal Medicine at [facility], adjustments of medication accordingly. Last few days, complicated cough, low-grade fever, increasing facial pressure, mild discomfort, and a sense of reduced well-being. Taking fluids, though reluctantly. MEDICATIONS: Please see med recon list. PAST MEDICAL HISTORY: Significant for multiple toe surgeries and left AC joint arthroscopic surgery. She had a complicated dog bite to her left face. Chronic illnesses include hypertension, gastroesophageal reflux, reactive airway disease, hyperlipidemia, and mood disorder. ALLERGIES: To codeine, hydrocodone, latex, phenylephrine, triamcinolone, and meperidine. SOCIAL HISTORY: Single. No children. 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 Nonsmoker. No alcohol consumption. No illicit drug use. FAMILY HISTORY: Noncontributory. REVIEW OF SYSTEMS: Just feeling poorly respiratory gonsalves. Some intermittent dizziness. Bowels have been fine. Bladder has been fine. No blood in urine. No blood in stool, ambulation has been difficult, weakness, and problematic weight loss. PHYSICAL EXAMINATION: VITAL SIGNS: Stable. 37.7, 89, 123/77, 18, and 97%. GENERAL: Cooperative and conversant. HEENT: Serous effusions. Clear rhinorrhea. Mild conjunctivitis. Mouth and oropharynx, clear. NECK: Benign. Thyroid small. CHEST: Decreased breath sounds. Rales, right lower lobe distribution. HEART: Regular without ectopy or murmur. ABDOMEN: Benign. No surgical scars. No hepatosplenomegaly. AND RECTAL: Exam deferred. EXTREMITIES: Well perfused. SKIN: Benign nevi only. LABORATORY STUDIES: White count 5300 and hemoglobin 12.7. Normal differential. Electrolytes satisfactory. Troponin 0.07. Urinalysis noted ketones, old occult blood, small bilirubin, 0-5 white cells, and 0-[address] sinuses, minimal disease. Chest x-ray pending. Ultrasound pending. ASSESSMENT: A 72-year-old female presents with complicated respiratory illness, recurrent and repetitive in nature. Appears now to have a right lower lobe pneumonia. PLAN: Acute care stay, likely overnight. IV antibiotics, fluids, and hydration. Complementary care and well being. Diagnostic studies to be performed and evaluated. /[id number]/HEIDI
[2017-06-09] MEDS: traMADol 50 MG Tab PO PRN ×2 (17:05→20:29)
[2017-06-09] MEDS ORDERED: GABAPENTIN 400 MG PO SCH (21:00)
[2017-06-10] MEDS: Levothyroxine 50 MCG Tab*PTOM PO SCH (05:12)
[2017-06-10] MEDS: VERAPAMIL 180 MG PO SCH (08:17)
[2017-06-10] MEDS: Promethazine 12.5 MG in Sodium Chloride 0.9% 50 ML IV PRN (09:08)
[2017-06-10] MEDS: cefTRIAXone 1,000 MG VIAL IV SCH (09:55)
[2017-06-10] MEDS: Sodium Chloride 0.9% 10 ML Syringe FLUSH PRN (09:59)
--- NOTE | 2017-06-10 11:32 | PN ---
DATE SEEN: 06/10/2017 SUBJECTIVE: Roz Bravo is a 72-year-old female presents with clinical and radiographic evidence of a right lower lobe pneumonia. Complicated cough and respiratory difficulty. Making good progress. Cough is better, respirations are more comfortable. MEDICATIONS: Reviewed and appropriate. OBJECTIVE: VITAL SIGNS: 37.5, 96/57, 70 is the mean, 18, 91%. GENERAL: Appears comfortable. A bit disheveled. NECK: Benign. Thyroid small. CHEST: Clear in all lung cheng. HEART: Regular without ectopy or murmur. ABDOMEN: Benign. LABORATORY STUDIES: Microbiology, negative strep screen. Normal vanessa per sputum. Negative A and B. Diagnostic ultrasound revealed cholelithiasis, single stone. ASSESSMENT: Resolving pneumonia. PLAN: We will switch from IV to oral antibiotics, complementary care and well being. Fluids and hydration, expectations for discharge this evening. /[id number] /HEIDI
[2017-06-10] MEDS ORDERED: Levofloxacin 500 MG Tab PO SCH (19:00)
[2017-06-10] MEDS ORDERED: Gabapentin 300 MG Cap ONE (20:50)
[2017-06-10] MEDS ORDERED: Gabapentin 600 MG Tab PO SCH (21:00)
[2017-06-10] MEDS: Verapamil 180 MG Tab.ER PO SCH (21:04)
[2017-06-10] MEDS: Gabapentin 300 MG Cap PO SCH (21:04)
[2017-06-10] MEDS: traMADol 50 MG Tab PO PRN (21:57)
[2017-06-11] MEDS: Promethazine 12.5 MG in Sodium Chloride 0.9% 50 ML IV PRN ×2 (00:23→22:40)
[2017-06-11] MEDS: Sodium Chloride 0.9% 10 ML Syringe FLUSH PRN ×2 (00:35→23:00)
[2017-06-11] MEDS: Levothyroxine 25 MCG Tab PO SCH (06:40)
[2017-06-11] MEDS: traMADol 50 MG Tab PO PRN (10:47)
--- NOTE | 2017-06-11 11:07 | PN ---
DATE SEEN: 06/11/2017 SUBJECTIVE: Roz Bravo is a 72-year-old female admitted with acute dizziness, was found to have an unremarkable pneumonia, microbiology was returned normal, sputum has revealed normal vanessa, tolerating oral antibiotics. Upon admission, she was found to have gallstones. Seemed to be activating epigastric pain, likely of a prolonged nature. OBJECTIVE: VITAL SIGNS: Stable. Temperature 37.2, pulse 70, respirations 16, O2 saturations 96%, blood pressure 123/73. CHEST: Clear. HEART: Regular. ABDOMEN: Benign. Little tender at epigastric area. ASSESSMENT: 1. Biliary colic. 2. Resolving pneumonia. PLAN: Consultation obtained with Dr. Mandeep River. Complementary care and well- being. Results to follow accordingly. /[id number]/HEIDI
--- NOTE | 2017-06-11 11:43 | PN ---
DATE SEEN: 06/11/2017 SUBJECTIVE: Roz Bravo is a 72-year-old female admitted with sinusitis, found to have pneumonia, gallbladder ultrasound confirmed stones. Persistent problematic right upper quadrant pain persisting. OBJECTIVE: CHEST: Clear. HEART: Regular. ABDOMEN: Benign. IMPRESSION: Resolving pneumonia. Epigastric pain. Known gallstones. PLAN: Consultation plan: Ramon River at [facility] Surgery, complementary care and well being. Await his intervention. /[id number] /HEIDI
--- NOTE | 2017-06-11 18:14 | CONS ---
DATE OF CONSULTATION: 06/10/2017 HISTORY OF PRESENT ILLNESS: This 72-year-old female, who is seen at the request of Dr. Rubio for evaluation of abdominal pain and cholelithiasis. She was admitted a couple of days ago with sinusitis, pneumonia, and some lightheadedness. She is feeling better at this time, but has been noted to be having some right upper quadrant abdominal pain beginning approximately a year ago. This is happening at least on a weekly basis and seems to becoming more frequent and more severe. She underwent a gallbladder ultrasound, which does show a large stone in the gallbladder, which is not impacted into the neck. There were no signs of cholecystitis such as wall thickening or pericholecystic fluid. The patient's past medical history was reviewed. She underwent a laparoscopic Denae fundoplication in 2009 for GERD with good control of her symptoms. She has been taking some Protonix off and on the past year because of the abdominal pain and it has not been helpful. She does not notice any specific foods that are aggravating or bringing on these symptoms. She does have some occasional nausea, but no vomiting. Bowels have been working well. PHYSICAL EXAMINATION: GENERAL: She is a pleasant lady in no acute distress. VITAL SIGNS: Reviewed and within normal limits. HEENT: Her sclerae are white. SKIN: Not jaundiced. LUNGS: Clear at this time. Respirations are nonlabored. ABDOMEN: Soft with very minimal right upper quadrant tenderness. No masses or hernias are palpable. ASSESSMENT: Symptomatic cholelithiasis. PLAN: Findings are reviewed with the patient and recommend she undergo a laparoscopic cholecystectomy in the near future. I will follow up with her in the clinic next week after she is discharged and plan on surgery later this month once she is feeling better. She is instructed on maintaining a low-fat diet until that time. /[id number] DAVID/HEIDI VILLALOBOS
[2017-06-11] MEDS ORDERED: Levofloxacin 250 MG Tab PO SCH (19:00)
[2017-06-11] MEDS: Verapamil 180 MG Tab.ER PO SCH (21:08)
[2017-06-11] MEDS: Gabapentin 300 MG Cap PO SCH (21:09)
--- NOTE | 2017-06-11 21:34 | PN ---
DATE SEEN: 06/11/2017 TIME: 1800 hours. SUBJECTIVE: Roz Bravo is a 72-year-old female admitted with respiratory illness, confirmed pneumonia. Diagnostic ultrasound revealed right upper quadrant pain related cholelithiasis. Seen by Dr. River earlier today. Recommendations for avoiding surgery, recheck next Thursday. Discharge plan is not available and no ride available. Discharged home with analgesics as appropriate. Comfortable diet, adequate antibiotic therapy. Levaquin 250 mg 10 days' duration. Complementary care and well being. /[id number] /HEIDI
[2017-06-12] MEDS: Levothyroxine 25 MCG Tab PO SCH (05:01)
[2017-06-12 07:43] VITALS: BP 123/71
[2017-06-12] MEDS: traMADol 50 MG Tab PO PRN (09:03)
--- NOTE | 2017-06-12 10:56 | DISCH ---
DISCHARGE DATE: 06/12/2017 REASON FOR ADMISSION: Abdominal pain. DISCHARGE DIAGNOSES: 1. Pneumonia, left lower lobe. 2. Gallstones. 3. Gastroesophageal reflux disease. CONSULTATIONS: Dr. iRver, General Surgery. PROCEDURES: None. BRIEF HOSPITAL COURSE: A 72-year-old female who came in with abdominal pain and was found to have cholelithiasis. She had come in with upper respiratory symptoms, lightheadedness, dizziness, and chest x-ray showed possible pneumonia as well. Dr. River was also consulted and recommended laparoscopic cholecystectomy, but this can be accomplished as an outpatient, when the infection is better. The patient was discharged home on tramadol, Levaquin, Nexium, levothyroxine as needed. Please note that I spent more than 35 minutes in the discharge of the patient. /[id number] JEREMIAS/HEIDI
--- NOTE | 2017-06-12 10:56 | PN ---
DATE SEEN: 06/12/2016 CHIEF COMPLAINT: Nausea, abdominal pain. HISTORY OF PRESENT ILLNESS: A 72-year-old female admitted for pneumonia and gallstones, complains of some nausea this morning and pain in the abdomen that is mild to moderate. No fever or chills. No vomiting. CURRENT MEDICATIONS: Reviewed. ALLERGIES: Reviewed. PHYSICAL EXAMINATION: VITAL SIGNS: Blood pressure is normal, pulse is 78, and temperature 98.7. ENT: Negative. CARDIOVASCULAR: Normal. CHEST: Clear. LABORATORY DATA: None this morning. IMPRESSION: 1. Community-acquired pneumonia. 2. Gallstones. 3. Gastroesophageal reflux disease. PLAN: Discharge home today on oral antibiotics, oral Levaquin, Nexium, and p.r.n. tramadol. Will see Dr. River on Thursday. /[id number] JEREMIAS/HEIDI
== END 2017-06-12 14:04 | disposition home or self-care (01) | DRG 195 ==
LOC: FB.ED 20:21 → FB.MS 23:28 → OBSVTOIN 06-10 18:34
PROVIDERS: ADMIT Family Medicine; ATTEND Family Medicine
DX: J18.9 Pneumonia, unspecified organism (principal); J32.9 Chronic sinusitis, unspecified; K80.20 Calculus of gallbladder without cholecystitis without obstruction; I10 Essential (primary) hypertension; R53.1 Weakness; R10.11 Right upper quadrant pain; R42 Dizziness and giddiness; E03.9 Hypothyroidism, unspecified; J45.909 Unspecified asthma, uncomplicated; F39 Unspecified mood [affective] disorder; K21.9 Gastro-esophageal reflux disease without esophagitis; E78.5 Hyperlipidemia, unspecified; H54.7 Unspecified visual loss; Z91.040 Latex allergy status; Z88.5 Allergy status to narcotic agent; Z88.8 Allergy status to other drugs, medicaments and biological substances
CPT/HCPCS: 36415; 70486; 71046; 76700; 80048; 80076; 81001; 82150; 84484; 85025; 87070; 87081; 87205; 87430; 87804; 96361; 96374; 99285; A9270-GY; J0456; J0696; J2550; J2765; J3480; J7040; J7050

== ENCOUNTER 2017-06-23 10:19 | Day surgery (SDC) | payer BC, MEDICARE ==
[2017-06-23] MEDS ORDERED: Lactated Ringers 1,000 ML IV SCH (10:30)
[2017-06-23] MEDS ORDERED: Sodium Chloride 0.9% 10 ML Syringe FLUSH PRN (10:30)
--- NOTE | 2017-06-23 11:40 | PCM.HPR ---
H & P Addendum review - H & P Addendum Review Date of Original H & P: 06/16/17 Date Reviewed: 06/23/17 Time Reviewed: 11:40 Patient was Examined: No Changes
[2017-06-23] MEDS ORDERED: diphenhydrAMINE 50 MG/ML SDV IV ONE (12:00)
[2017-06-23] MEDS ORDERED: Ondansetron 4 MG/2 ML SDV IVPUSH ONE (12:00)
[2017-06-23] MEDS ORDERED: Lactated Ringers 1,000 ML IV ONE (12:00)
[2017-06-23] MEDS ORDERED: Neostigmine Methylsulfate 1 MG/ML 5 ML Syringe IV ONE (12:00)
[2017-06-23] MEDS ORDERED: hydrOXYzine HCl 50 MG/ML SDV IM ONE (12:00)
[2017-06-23] MEDS ORDERED: Ketorolac 15 MG/ML SDV IVPUSH ONE (12:00)
[2017-06-23] MEDS ORDERED: Propofol 200 MG/20 ML SDV IV ONE (12:00)
[2017-06-23] MEDS ORDERED: Dexamethasone 4 MG/ML 5 ML MDV IVPUSH ONE (12:00)
[2017-06-23] MEDS ORDERED: Glycopyrrolate 0.2 MG/ML 2 ML SDV IV ONE (12:00)
[2017-06-23] MEDS ORDERED: Rocuronium 100 MG/10 ML MDV IV ONE (12:00)
[2017-06-23] MEDS ORDERED: Midazolam 1 MG/ML 2 ML SDV IV ONE (12:00)
--- NOTE | 2017-06-23 13:19 | PCM.OPNOTE ---
- General Post-Op/Procedure Note Date of Surgery/Procedure: 06/23/17 Operative Procedure(s): Lap Mira Pre Op Diagnosis: Symptomatic Cholelithiasis Post-Op Diagnosis: Same Anesthesia Technique: General ET Tube Primary Surgeon: Mandeep River Anesthesia Provider: Cindy Valerio Pathology: Gallbladder EBL in mLs: 25 Complications: None Condition: Good
[2017-06-23 15:54] VITALS: BP 146/81
--- NOTE | 2017-06-23 19:05 | OR ---
DATE OF OPERATION: 06/23/2017 SURGEON: Mandeep River MD PREOPERATIVE DIAGNOSIS: Symptomatic cholelithiasis. POSTOPERATIVE DIAGNOSIS: Symptomatic cholelithiasis. PROCEDURE: Laparoscopic cholecystectomy. ANESTHESIA: General. DESCRIPTION OF PROCEDURE: The patient was brought to the operating room, where general endotracheal anesthesia was administered. Her abdomen was prepped with ChloraPrep and draped sterilely. An infraumbilical incision was made and extended into the peritoneal cavity without difficulty. The Jassi cannulator was introduced and pneumoperitoneum obtained. The remaining three 5 mm ports were placed in the usual positions. General exploration revealed some omental adhesions to the undersurface of the gallbladder. Liver, stomach, bowel, and omental surfaces were all looked normal. The gallbladder was grasped and filmy omental adhesions taken down with blunt dissection. Some minimal oozing was controlled with electrocautery. Cystic duct and cystic artery were dissected free without difficulty. The cystic artery had a main branch that divided into an anterior and posterior branch. The main branch was doubly clipped proximally, and each of the other branches was clipped distally and then transected. The anatomy of the cystic duct could be seen entering the gallbladder and extending towards the common bile duct. This was doubly clipped proximally, once distally, and then transected. The gallbladder was removed from the bed of the liver with minimal difficulty. Some oozing occurred that was controlled with electrocautery. Once the gallbladder was freed, it was brought out through the umbilical incision. A right upper quadrant was inspected and there was one area in the bed of the liver close to the clips that had some intermittent minimal oozing, so a piece of Nu-Knit Surgicel was placed there. The ports were removed under direct vision and remained hemostatic. Umbilical fascia was closed with [id number] 0 Vicryl. Skin was closed with 4-0 Vicryl subcuticular sutures. Benzoin and Steri-Strips were placed and Band- Aids applied. The patient tolerated the procedure well. Estimated blood loss was 25 mL. She returned to postanesthesia in stable condition. /[id number] DAVID/HEIDI
== END 2017-06-23 16:10 | disposition home or self-care (01) ==
LOC: FB.SDS 10:19
PROVIDERS: ATTEND Surgery
DX: K80.10 Calculus of gallbladder with chronic cholecystitis without obstruction (principal); I10 Essential (primary) hypertension; K21.9 Gastro-esophageal reflux disease without esophagitis; E78.5 Hyperlipidemia, unspecified; E03.9 Hypothyroidism, unspecified; Z88.8 Allergy status to other drugs, medicaments and biological substances; Z91.040 Latex allergy status
CPT/HCPCS: 47562; 88304; J0131; J1100; J1200; J1885; J2250; J2405; J2704; J3410; J7120; J3490

== ENCOUNTER 2017-09-07 20:17 | Emergency (ER) | payer MEDICARE, BC ==
--- NOTE | 2017-09-07 21:51 | EDM.PDOC ---
ED HPI GENERAL MEDICAL PROBLEM - General Chief Complaint: Gastrointestinal Problem Stated Complaint: DIARRHEA Time Seen by Provider: 09/07/17 21:00 Source of Information: Reports: Patient History Limitations: Reports: No Limitations - History of Present Illness INITIAL COMMENTS - FREE TEXT/NARRATIVE: Roz comes into [facility] ED with a 48 hour hx of diarrheal stools. 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 Her only meal was a [employer] sandwich at 1 pm. She awoke yesterday with limited abdominal cramping and loose watery stools with some mucous but no BRB. She probably stools a dozen times yesterday , predictably when trying to eat something. There was no nausea, vomiting, fever , chills or sweats. She did not stool overnight, but resumed today when attempting to eat something. She had not tried clear liquids. Imodium tabs seemed to help. Generalized Pain Score (Numeric/FACES): 10 - Related Data Allergies Allergy/AdvReac Type Severity Reaction Status Date / Time codeine Allergy Swelling Verified 09/07/17 20:27 hydrocodone Allergy Cannot Verified 09/07/17 20:27 Remember latex Allergy Cannot Verified 09/07/17 20:27 Remember phenylephrine HCl Allergy Cannot Verified 09/07/17 20:27 [From Mydfrin] Remember triamcinolone acetonide Allergy Other Verified 09/07/17 20:27 [From Kenalog] meperidine HCl [From Demerol] AdvReac Nausea and Verified 09/07/17 20:27 Vomiting Home Meds: Home Meds Carboxymethylcell/Hypromellose [GenTeal Moderate to Severe Gel Drops] 1 drop EYEBOTH ASDIRECTED PRN 08/21/14 [History] Cranberry Extract [Cranberry] 1,000 mg PO BEDTIME 08/21/14 [History] Hydrocortisone Acetate [Anucort-Hc] 25 mg RECTAL BID PRN 08/21/14 [History] Lactulose 10 gm PO DAILY PRN 08/21/14 [History] Verapamil HCl [Verapamil Sr] 180 mg PO BEDTIME 08/21/14 [History] Hydrocortisone [Procto-Med Hc] 1 applic TOP BID PRN 06/08/17 [History] Levothyroxine [Synthroid] 25 mcg PO ACBREAKFAST 06/08/17 [History] Loratadine [Claritin] 10 mg PO BEDTIME 06/08/17 [History] Acetaminophen [Tylenol Arthritis Pain] 1,300 mg PO BID 06/09/17 [History] Azelastine [Astelin Nasal Soln] 2 inhalation DANAY BID PRN 06/09/17 [History] Calcium Carbonate [Tums] 1,000 mg PO ASDIRECTED PRN 06/09/17 [History] Estrogens, Conjugated [Premarin Vaginal Crm] 0.5 gm VAG DAILY 06/09/17 [History] Gabapentin [Neurontin] 800 mg PO BEDTIME 06/09/17 [History] Ketotifen [Ketotifen 0.025% Ophth Soln] 1 drop EYEBOTH ASDIRECTED PRN 06/09/17 [ History] Tretinoin/Emol Cmb9/Skin Cln1 [Tretin-X 0.025% Cream Comb Pck] 1 applic TOP DAILY PRN 06/09/17 [History] cycloSPORINE [Restasis] 1 drop EYEBOTH BID 06/09/17 [History] Mupirocin Calcium [Bactroban] 1 applic TOP TID PRN 06/22/17 [History] Triamcinolone Acetonide [Triamcinolone Acetonide 0.1% Crm] 1 applic TOP BID PRN 06/22/17 [History] Gabapentin [Neurontin] 400 mg PO DAILY 09/07/17 [History] Ranitidine [Zantac] 150 mg PO DAILY 09/07/17 [History] Past Medical History - Past Health History Medical/Surgical History: Denies Medical/Surgical History HEENT History: Reports: Allergic Rhinitis, Glaucoma, Impaired Vision, Other ( See Below) Other HEENT History: KERATOCONJUNCTIVITIS SICCA BOTH EYES, ALLERGIC CONJUCTIVITIS Cardiovascular History: Reports: High Cholesterol, Hypertension Respiratory History: Reports: Bronchitis, Recurrent, Pneumonia, Recurrent Other Respiratory History: RESPIRATORY ALLERGIES Gastrointestinal History: Reports: Chronic Constipation, GERD, Hiatal Hernia Other Gastrointestinal History: states that she has recurrent irritation to her anal area if she has diarrhea or if she is constipated. Genitourinary History: Reports: UTI, Recurrent Musculoskeletal History: Reports: Back Pain, Chronic, Fracture, Neck Pain, Chronic, Osteoarthritis Other Musculoskeletal History: hx fx L ankle, fx L ribs, facial fx, fx back Neurological History: Reports: Concussion, Vertigo, Other (See Below) Other Neuro History: Brain tumor-benign Endocrine/Metabolic History: Reports: Hypothyroidism Hematologic History: Reports: Blood Transfusion(s) Immunologic History: Reports: Other (See Below) Other Immunologic History: CHRONIC SINUS INFECTIONS Dermatologic History: Reports: Other (See Below) Other Dermatologic History: VARIOUS RASHES - Infectious Disease History Infectious Disease History: Reports: Chicken Pox, Measles, Mumps, Shingles - Past Surgical History HEENT Surgical History: Reports: Tonsillectomy Other HEENT Surgeries/Procedures: nose surgery, face surgery GI Surgical History: Reports: Cholecystectomy, Colonoscopy, EGD, Hernia Repair/ Other, Denae Fundoplication, Other (See Below) Other GI Surgeries/Procedures: hiatal hernia repair Female Surgical History: Reports: None Neurological Surgical History: Reports: Spinal Fusion Other Neurological Surgeries/Procedures: benign brain tumor removed Musculoskeletal Surgical History: Reports: Other (See Below) Other Musculoskeletal Surgeries/Procedures:: spinal fusion, 4 toe surgeries Social & Family History - Family History Family Medical History: Noncontributory - Tobacco Use Smoking Status *Q: Never Smoker Second Hand Smoke Exposure: No - Caffeine Use Caffeine Use: Reports: Soda - Alcohol Use Days Per Week of Alcohol Use: 0 - Recreational Drug Use Recreational Drug Use: No ED ROS GENERAL - Review of Systems Review Of Systems: See Below Constitutional: Reports: Malaise HEENT: Reports: Rhinitis Respiratory: Reports: No Symptoms Cardiovascular: Reports: No Symptoms Endocrine: Reports: No Symptoms GI/Abdominal: Reports: Abdominal Pain, Diarrhea, Mucous in Stool : Reports: No Symptoms Musculoskeletal: Reports: No Symptoms Skin: Reports: No Symptoms Neurological: Reports: No Symptoms Psychiatric: Reports: No Symptoms Hematologic/Lymphatic: Reports: No Symptoms Immunologic: Reports: No Symptoms ED EXAM, GI/ABD - Physical Exam Exam: See Below Exam Limited By: No Limitations General Appearance: Alert, WD/WN, No Apparent Distress Eyes: Bilateral: Normal Appearance, EOMI Ears: Normal External Exam Nose: Normal Inspection Throat/Mouth: Normal Inspection, Normal Oropharynx Head: Normocephalic Neck: Normal Inspection, Supple Respiratory/Chest: Lungs Clear Cardiovascular: Normal Peripheral Pulses, Regular Rate, Rhythm, No Edema GI/Abdominal Exam: Normal Bowel Sounds, Soft, Non-Tender, No Organomegaly, No Distention, No Mass Back Exam: Normal Inspection Extremities: Normal Inspection Neurological: Alert, Oriented, CN II-XII Intact, Normal Cognition, Normal Gait, No Motor/Sensory Deficits Psychiatric: Normal Affect, Anxious Skin Exam: Warm, Dry Lymphatic: No Adenopathy Course - Vital Signs Text/Narrative:: Roz remained stable at the [facility] ED. No meds were administered. Her CBC and UA were baseline. Last Recorded V/S: Last Vital Signs Temp 36.5 C 09/07/17 20:24 Pulse 77 09/07/17 20:24 Resp 18 09/07/17 20:24 BP Pulse Ox 100 09/07/17 20:24 - Orders/Labs/Meds Labs: Laboratory Tests 09/07/17 09/07/17 Range/Units 21:15 21:39 WBC 6.3 (4.5-12.0) X10-3/uL RBC 4.42 (3.23-5.20) x10(6)uL Hgb 13.5 (11.5-15.5) g/dL Hct 39.8 (30.0-51.3) % MCV 90.2 (80-96) fL MCH 30.6 (27.7-33.6) pg MCHC 34.0 (32.2-35.4) g/dL RDW 12.0 (11.5-15.5) % Plt Count 188 (125-369) X10(3)uL MPV 9.6 (7.4-10.4) fL Neut % (Auto) 71.3 (46-82) % Lymph % (Auto) 19.5 (13-37) % [place] % (Auto) 7.7 (4-12) % Eos % (Auto) 1 (1.0-5.0) % Baso % (Auto) 1 (0-2) % Neut # (Auto) 4.5 (1.6-8.3) # Lymph # (Auto) 1.2 (0.6-5.0) # [place] # (Auto) 0.5 (0.0-1.3) # Eos # (Auto) 0.1 (0.0-0.8) # Baso # (Auto) 0.0 (0.0-0.2) # Urine Color Yellow (YELLOW) Urine Appearance Cloudy (CLEAR) Urine pH 5.0 (5.0-6.5) Ur Specific [place] 1.025 (1.010-1.025) Urine Protein Negative (NEGATIVE) mg/dL Urine Glucose (UA) Normal (NEGATIVE) mg/dL Urine Ketones 15 H (NEGATIVE) mg/dL Urine Occult Blood Moderate H (NEGATIVE) Urine Nitrite Negative (NEGATIVE) Urine Bilirubin Small H (NEGATIVE) Urine Urobilinogen 1 H (NEGATIVE) mg/dL Ur Leukocyte Esterase Negative (NEGATIVE) Urine RBC 5-10 (0) Urine WBC 0-5 (0) Ur Squamous Epith Cells Many H (NS,R,O) Urine Bacteria Moderate H (NS) Urine Mucus Moderate H (NS) Departure - Departure Time of Disposition: 22:28 Disposition: Home, Self-Care 01 Condition: Fair Clinical Impression: Diarrhea - Discharge Information Instructions: Diarrhea, Adult, [id number] Referrals: Mikhail Meraz MD [Primary Care Provider] - Forms: ED Department Discharge Additional Instructions: Activity as tolerated. Advance diet as tolerated. Imodium as needed for diarrhea. Follow up with your regular MD at clinic as needed by end of week if not improving. - Problem List & Annotations (1) Diarrhea SNOMED Code(s): 93347902 Code(s): R19.7 - DIARRHEA, UNSPECIFIED Status: Acute Current Visit: Yes Annotation/Comment:: I suggested clear liquids and advance diet as tolerated, Imodium for sxs relief. - Problem List Review Problem List Initiated/Reviewed/Updated: Yes - Assessment/Plan Plan: Follow up with PCP if needed.
[2017-09-07] MEDS ORDERED: Azithromycin 500 MG Tab PO ONE (22:15)
[2017-09-08 00:56] VITALS: BP 148/91
== END 2017-09-07 22:34 | disposition home or self-care (01) ==
LOC: FB.ED 20:17
DX: R19.7 Diarrhea, unspecified (principal); I10 Essential (primary) hypertension; E78.00 Pure hypercholesterolemia, unspecified; K21.9 Gastro-esophageal reflux disease without esophagitis; E03.9 Hypothyroidism, unspecified; M19.90 Unspecified osteoarthritis, unspecified site; Z79.899 Other long term (current) drug therapy; Z88.5 Allergy status to narcotic agent; Z91.040 Latex allergy status; Z88.8 Allergy status to other drugs, medicaments and biological substances
CPT/HCPCS: 36415; 81001; 85025; 99284

== ENCOUNTER 2018-01-03 14:04 | Emergency (ER) | payer MEDICARE, BC ==
--- NOTE | 2018-01-03 14:58 | EDM.PDOC ---
ED HPI GENERAL MEDICAL PROBLEM - General Chief Complaint: General Stated Complaint: FELL, HURTS ALL OVER Time Seen by Provider: 01/03/18 14:07 Source of Information: Reports: Patient History Limitations: Reports: No Limitations - History of Present Illness INITIAL COMMENTS - FREE TEXT/NARRATIVE: 72 years old w f came to the ed after she felt dizzy and fell onto her knees. She did not hit her head but complaint of neck pain, which she had in the past. She was diagnosed with vertigo on the past. Antivert did not help. However, after her chiropracter "set her neck", the vertigo dizziness subsided. She said she was in the past diagnosed with "dislocated neck" but has full range of motion in her neck. She complaint about diarrhea since her gallbladder surgery. In the past, her potassium was low and she was on potassium for while, but not currently. Pt is ambulating fine and refused any meds for pain at this time. Turning her neck makes her sometimes dizzy BP 136/ 73 RR 18 Pulse ox 100% on RA pulse 88 Temp 36.8 Onset Date: 01/03/18 Onset Time: 09:00 Duration: Hour(s):, Improving Location: Reports: Generalized Quality: Reports: Ache, Dull, Same as Previous Episode Severity: Mild Improves with: Reports: Rest Worsens with: Reports: Movement Context: Reports: Trauma, Other Associated Symptoms: Reports: No Other Symptoms Treatments [employer]ING [employer]ER: Reports: Acetaminophen Generalized Pain Score (Numeric/FACES): 10 - Related Data Allergies Allergy/AdvReac Type Severity Reaction Status Date / Time codeine Allergy Swelling Verified 01/03/18 14:25 hydrocodone Allergy Cannot Verified 01/03/18 14:25 Remember latex Allergy Cannot Verified 01/03/18 14:25 Remember phenylephrine HCl Allergy Cannot Verified 01/03/18 14:25 [From Mydfrin] Remember triamcinolone acetonide Allergy Other Verified 01/03/18 14:25 [From Kenalog] meperidine HCl [From Demerol] AdvReac Nausea and Verified 01/03/18 14:25 Vomiting Home Meds: Home Meds Carboxymethylcell/Hypromellose [GenTeal Moderate to Severe Gel Drops] 1 drop EYEBOTH ASDIRECTED PRN 08/21/14 [History] Cranberry Extract [Cranberry] 1,000 mg PO BEDTIME 08/21/14 [History] Hydrocortisone Acetate [Anucort-Hc] 25 mg RECTAL BID PRN 08/21/14 [History] Lactulose 10 gm PO DAILY PRN 08/21/14 [History] Verapamil HCl [Verapamil Sr] 180 mg PO BEDTIME 08/21/14 [History] Hydrocortisone [Procto-Med Hc] 1 applic TOP BID PRN 06/08/17 [History] Levothyroxine [Synthroid] 25 mcg PO ACBREAKFAST 06/08/17 [History] Loratadine [Claritin] 10 mg PO BEDTIME 06/08/17 [History] Acetaminophen [Tylenol Arthritis Pain] 1,300 mg PO BID 06/09/17 [History] Azelastine [Astelin Nasal Soln] 2 inhalation DANAY BID PRN 06/09/17 [History] Calcium Carbonate [Tums] 1,000 mg PO ASDIRECTED PRN 06/09/17 [History] Estrogens, Conjugated [Premarin Vaginal Crm] 0.5 gm VAG DAILY 06/09/17 [History] Gabapentin [Neurontin] 800 mg PO BEDTIME 06/09/17 [History] Ketotifen [Ketotifen 0.025% Ophth Soln] 1 drop EYEBOTH ASDIRECTED PRN 06/09/17 [ History] Tretinoin/Emol Cmb9/Skin Cln1 [Tretin-X 0.025% Cream Comb Pck] 1 applic TOP DAILY PRN 06/09/17 [History] cycloSPORINE [Restasis] 1 drop EYEBOTH BID 06/09/17 [History] Mupirocin Calcium [Bactroban] 1 applic TOP TID PRN 06/22/17 [History] Triamcinolone Acetonide [Triamcinolone Acetonide 0.1% Crm] 1 applic TOP BID PRN 06/22/17 [History] Gabapentin [Neurontin] 400 mg PO DAILY 09/07/17 [History] Ranitidine [Zantac] 150 mg PO DAILY 09/07/17 [History] tiZANidine 2 mg PO BEDTIME 01/03/18 [History] Past Medical History - Past Health History Medical/Surgical History: Denies Medical/Surgical History HEENT History: Reports: Allergic Rhinitis, Glaucoma, Impaired Vision, Sinusitis , Other (See Below) Other HEENT History: KERATOCONJUNCTIVITIS SICCA BOTH EYES, ALLERGIC CONJUCTIVITIS Cardiovascular History: Reports: High Cholesterol, Hypertension Respiratory History: Reports: Bronchitis, Recurrent, Pneumonia, Recurrent Other Respiratory History: RESPIRATORY ALLERGIES Gastrointestinal History: Reports: Cholelithiasis, Chronic Constipation, GERD, Hiatal Hernia Other Gastrointestinal History: states that she has recurrent irritation to her anal area if she has diarrhea or if she is constipated. 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: Other GSE MECHANIC History: G0 Musculoskeletal History: Reports: Back Pain, Chronic, Fracture, Neck Pain, Chronic, Osteoarthritis Other Musculoskeletal History: hx fx L ankle, fx L ribs, facial fx, fx back Neurological History: Reports: Concussion, Vertigo, Other (See Below) Other Neuro History: Brain tumor-benign Endocrine/Metabolic History: Reports: Hypothyroidism Hematologic History: Reports: Anesthesia Reaction, Blood Transfusion(s) Immunologic History: Reports: Other (See Below) Other Immunologic History: CHRONIC SINUS INFECTIONS Dermatologic History: Reports: Other (See Below) Other Dermatologic History: VARIOUS RASHES - Infectious Disease History Infectious Disease History: Reports: Chicken Pox, Measles, Mumps, Shingles - Past Surgical History HEENT Surgical History: Reports: Naso-Sinus Surgery, Tonsillectomy Other HEENT Surgeries/Procedures: nose surgery, face surgery GI Surgical History: Reports: Cholecystectomy, Colonoscopy, EGD, Hernia Repair/ Other, Denae Fundoplication, Other (See Below) Other GI Surgeries/Procedures: hiatal hernia repair Female Surgical History: Reports: None Neurological Surgical History: Reports: Spinal Fusion Other Neurological Surgeries/Procedures: benign brain tumor removed Musculoskeletal Surgical History: Reports: Other (See Below) Other Musculoskeletal Surgeries/Procedures:: spinal fusion, 4 toe surgeries, R hand surgery Social & Family History - Family History Family Medical History: Noncontributory - Tobacco Use Smoking Status *Q: Never Smoker - Caffeine Use Caffeine Use: Reports: Soda - Recreational Drug Use Recreational Drug Use: No ED ROS GENERAL - Review of Systems Review Of Systems: See Below Constitutional: Reports: No Symptoms, Other (dizzy at times) HEENT: Reports: No Symptoms Respiratory: Reports: No Symptoms Cardiovascular: Reports: No Symptoms Endocrine: Reports: No Symptoms GI/Abdominal: Reports: No Symptoms : Reports: No Symptoms Musculoskeletal: Reports: Muscle Pain (generalized) Skin: Reports: No Symptoms Neurological: Reports: Dizziness Psychiatric: Reports: No Symptoms Hematologic/Lymphatic: Reports: No Symptoms Immunologic: Reports: No Symptoms ED EXAM, GENERAL - Physical Exam Exam: See Below Exam Limited By: No Limitations General Appearance: Alert, WD/WN, Mild Distress, Thin Eye Exam: Bilateral Eye: Normal Inspection Ears: Normal External Exam Ear Exam: Bilateral Ear: Auricle Normal Nose: Normal Inspection, Normal Mucosa, No Blood Throat/Mouth: Normal Inspection, Normal Lips, Normal Gums, Normal Voice, No Airway Compromise Head: Atraumatic, Normocephalic Neck: Normal Inspection, Tender Lateral Respiratory/Chest: No Respiratory Distress, Lungs Clear, Normal Breath Sounds, No Accessory Muscle Use, Chest Non-Tender Cardiovascular: Normal Peripheral Pulses, Regular Rate, Rhythm, No Edema, No Gallop, No JVD, No Murmur, No Rub GI/Abdominal: Normal Bowel Sounds, Soft, Non-Tender, No Organomegaly, No Distention, No Abnormal Bruit, No Mass, Pelvis Stable (Female) Exam: Deferred Rectal (Female) Exam: Deferred Back Exam: Normal Inspection, Full Range of Motion Extremities: Normal Inspection, Normal Range of Motion, Non-Tender, No Pedal Edema, Normal Capillary Refill Neurological: Alert, Oriented, CN II-XII Intact, Normal Cognition, Normal Gait, No Motor/Sensory Deficits Psychiatric: Normal Affect, Normal Mood Skin Exam: Warm, Dry, Intact, Normal Color, No Rash Lymphatic: No Adenopathy Course - Vital Signs Text/Narrative:: 72 years old w f came to the ed after she felt dizzy and fell onto her knees. She did not hit her head but complaint of neck pain, which she had in the past. She was diagnosed with vertigo on the past. Antivert did not help. However, after her chiropracter "set her neck", the vertigo dizziness subsided. She said she was in the past diagnosed with "dislocated neck" but has full range of motion in her neck. She complaint about diarrhea since her gallbladder surgery. In the past, her potassium was low and she was on potassium for while, but not currently. Pt is ambulating fine and refused any meds for pain at this time. Turning her neck makes her sometimes dizzy BP 136/73 RR 18 Pulse ox 100% on RA pulse 88 Temp 36.8 PE: Thin 72 y.o.w.f s/p fall with gen bodyache and neck discomfort, no direct trauma. Benign paroxysmal positional Vertigo Labs; CBC was nl BMP was pos for K 3.1 UA was neg Stool Cx WBC results are pending. US Neck was ordered Impression: Hypokalemia, loose stool, neck sprain, BPPV, gen body ache Tx: Potassium 40 mqg, 40 mqg to go. Pt refused antivert, makes her sick, she will go to her Chiropractor on Thursday to "reset her neck", which helped her in the past to make her vertigo to subside. Pt refused imodium for her loose stool , which may be the cause of her low potassium Reexam: Improved Plan: D/C with instructions Last Recorded V/S: Last Vital Signs Temp 36.3 C 01/03/18 14:07 Pulse 63 01/03/18 16:35 Resp 15 01/03/18 16:35 BP 157/82 H 01/03/18 16:35 Pulse Ox 100 01/03/18 16:35 - Orders/Labs/Meds Orders: Active Orders 24 hr Category Date Time Status FECAL FAT, QUANTITATIVE Urgent Lab 01/03/18 16:25 Ordered LACTOFERRIN, FECAL, QUANT Urgent Lab 01/03/18 16:25 Ordered STOOL CULTURE Urgent Lab 01/03/18 16:25 Ordered UA W/MICROSCOPIC [URIN] Stat Lab 01/03/18 14:30 Ordered Labs: Laboratory Tests 01/03/18 01/03/18 01/03/18 Range/Units 14:30 15:10 15:10 WBC 7.4 (4.5-12.0) X10-3/uL RBC 4.21 (3.23-5.20) x10(6)uL Hgb 13.6 (11.5-15.5) g/dL Hct 39.3 (30.0-51.3) % MCV 93.2 (80-96) fL MCH 32.2 (27.7-33.6) pg MCHC 34.5 (32.2-35.4) g/dL RDW 12.9 (11.5-15.5) % Plt Count 174 (125-369) X10(3)uL MPV 9.4 (7.4-10.4) fL Neut % (Auto) 73.9 (46-82) % Lymph % (Auto) 15.8 (13-37) % [place] % (Auto) 7.6 (4-12) % Eos % (Auto) 2 (1.0-5.0) % Baso % (Auto) 1 (0-2) % Neut # (Auto) 5.4 (1.6-8.3) # Lymph # (Auto) 1.2 (0.6-5.0) # [place] # (Auto) 0.6 (0.0-1.3) # Eos # (Auto) 0.1 (0.0-0.8) # Baso # (Auto) 0.1 (0.0-0.2) # Sodium 142 (135-145) mmol/L Potassium 3.1 L (3.5-5.3) mmol/L Chloride 106 (100-110) mmol/L Carbon Dioxide 32 (21-32) mmol/L BUN 15 (7-18) mg/dL Creatinine 0.8 (0.55-1.02) mg/dL Est Cr Clr Drug Dosing 55.42 mL/min Estimated GFR (MDRD) > 60 (>60) BUN/Creatinine Ratio 18.8 (9-20) Glucose 82 (80-116) mg/dL Calcium 8.9 (8.6-10.2) mg/dL Creatine Kinase 87 (60-160) IU/L Urine Color Yellow (YELLOW) Urine Appearance Slightly cloudy (CLEAR) Urine pH 5.0 (5.0-6.5) Ur Specific [place] 1.015 (1.010-1.025) Urine Protein Negative (NEGATIVE) mg/dL Urine Glucose (UA) Normal (NEGATIVE) mg/dL Urine Ketones Negative (NEGATIVE) mg/dL Urine Occult Blood Negative (NEGATIVE) Urine Nitrite Negative (NEGATIVE) Urine Bilirubin Negative (NEGATIVE) Urine Urobilinogen Normal (NEGATIVE) mg/dL Ur Leukocyte Esterase Negative (NEGATIVE) Urine RBC 0-5 (0) Urine WBC 0-5 (0) Ur Squamous Epith Cells Moderate H (NS,R,O) Amorphous Sediment Moderate Urine Bacteria Few H (NS) Meds: Medications Discontinued Medications Generic Name Dose Route Start Last Admin Trade Name Freq PRN Reason Stop Dose Admin Potassium Chloride 40 meq 01/03/18 21:00 Klor-Con M20 PO BEDTIME JESE Potassium Chloride 40 meq 01/03/18 21:00 Klor-Con M20 PO BEDTIME JESE Potassium Chloride 40 meq 01/03/18 16:05 01/03/18 16:15 Klor-Con M20 PO 01/03/18 16:06 40 meq ONETIME ONE Administration Potassium Chloride 40 meq 01/03/18 16:10 01/03/18 16:38 Klor-Con M20 PO 01/03/18 16:11 Not Given ONETIME ONE Departure - Departure Time of Disposition: 15:59 Disposition: Home, Self-Care 01 Condition: Good Clinical Impression: Hypokalemia due to loss of potassium Diarrhea Qualifiers: Diarrhea type: unspecified type Qualified Code(s): R19.7 - Diarrhea, unspecified - Discharge Information Instructions: Hypokalemia Referrals: Mikhail Meraz MD [Primary Care Provider] - Forms: ED Department Discharge Additional Instructions: Please take the potassium pill at 8 pm, increase water intake. Please check the potassium level in 3 days, F/U, come back if your symptoms get worse acutely - My Orders Last 24 Hours: My Active Orders 01/03/18 14:30 UA W/MICROSCOPIC [URIN] Stat 01/03/18 16:25 FECAL FAT, QUANTITATIVE Urgent LACTOFERRIN, FECAL, QUANT Urgent STOOL CULTURE Urgent - Assessment/Plan Last 24 Hours: My Active Orders 01/03/18 14:30 UA W/MICROSCOPIC [URIN] Stat 01/03/18 16:25 FECAL FAT, QUANTITATIVE Urgent LACTOFERRIN, FECAL, QUANT Urgent STOOL CULTURE Urgent
[2018-01-03] MEDS ORDERED: Potassium Chloride 20 MEQ Tab.ER PO ONE ×2 (16:05→16:10)
[2018-01-03 16:39] VITALS: BP 157/82
[2018-01-03] MEDS ORDERED: Potassium Chloride 20 MEQ Tab.ER PO SCH ×2 (21:00)
== END 2018-01-03 16:35 | disposition home or self-care (01) ==
LOC: FB.ED 14:04
DX: S13.9XXA Sprain of joints and ligaments of unspecified parts of neck, initial encounter (principal); E87.6 Hypokalemia; R19.7 Diarrhea, unspecified; H81.10 Benign paroxysmal vertigo, unspecified ear; R52 Pain, unspecified; Z88.5 Allergy status to narcotic agent; Z88.8 Allergy status to other drugs, medicaments and biological substances; Z91.040 Latex allergy status; Z79.899 Other long term (current) drug therapy; W18.39XA Other fall on same level, initial encounter
CPT/HCPCS: 36415; 80048; 81001; 82550; 85025; 99283; A9270-GY

== ENCOUNTER 2018-10-04 14:25 | Emergency (ER) | payer MEDICARE, BC ==
[2018-10-04 14:39] VITALS: BP 133/88
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
== END 2018-10-04 15:11 | disposition home or self-care (01) ==
LOC: FB.ED 14:25
DX: S01.511A Laceration without foreign body of lip, initial encounter (principal); W54.1XXA Struck by dog, initial encounter
CPT/HCPCS: 99282

== ENCOUNTER 2018-12-13 16:20 | Emergency (ER) | payer MEDICARE, BC ==
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
[2018-12-13] MEDS ORDERED: Ketorolac 30 MG/ML SDV IM ONE (17:06)
[2018-12-13] MEDS ORDERED: hydrOXYzine HCl 50 MG/ML SDV IM ONE (17:06)
[2018-12-13 19:24] VITALS: BP 139/87; PULSE 65
== END 2018-12-13 18:04 | disposition home or self-care (01) ==
LOC: FB.ED 16:20
DX: K58.9 Irritable bowel syndrome, unspecified (principal); E78.00 Pure hypercholesterolemia, unspecified; I10 Essential (primary) hypertension; K21.9 Gastro-esophageal reflux disease without esophagitis; E03.9 Hypothyroidism, unspecified; Z88.5 Allergy status to narcotic agent; Z91.040 Latex allergy status; Z88.8 Allergy status to other drugs, medicaments and biological substances; Z79.899 Other long term (current) drug therapy
CPT/HCPCS: 96372; 99283; J1885; J3410

== ENCOUNTER 2019-01-01 19:42 | Emergency (ER) | payer MEDICARE, BC ==
[2019-01-01] MEDS ORDERED: Ketorolac 60 MG/2 ML SDV IM ONE (20:14)
[2019-01-01] MEDS ORDERED: hydrOXYzine HCl 50 MG/ML SDV IM ONE (20:14)
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
[2019-01-01 21:20] VITALS: BP 117/69
== END 2019-01-01 20:26 | disposition home or self-care (01) ==
LOC: FB.ED 19:42
DX: R11.0 Nausea (principal); R19.7 Diarrhea, unspecified; R10.31 Right lower quadrant pain; R10.32 Left lower quadrant pain; I10 Essential (primary) hypertension; K21.9 Gastro-esophageal reflux disease without esophagitis; Z98.890 Other specified postprocedural states; Z90.49 Acquired absence of other specified parts of digestive tract; Z98.1 Arthrodesis status; Z79.899 Other long term (current) drug therapy; Z88.5 Allergy status to narcotic agent; Z91.040 Latex allergy status; Z88.8 Allergy status to other drugs, medicaments and biological substances
CPT/HCPCS: 96372; 99283; J1885; J3410

== ENCOUNTER 2019-01-31 20:37 | Emergency (ER) | payer MEDICARE, BC ==
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
[2019-01-31 21:19] LABS: HEMOGLOBIN A1C 5.7 % (4.5-6.2)
[2019-02-01 18:12] VITALS: BP 128/71; PULSE 72
== END 2019-01-31 22:20 | disposition home or self-care (01) ==
LOC: FB.ED 20:37
DX: E86.0 Dehydration (principal); I10 Essential (primary) hypertension; K21.9 Gastro-esophageal reflux disease without esophagitis; E78.00 Pure hypercholesterolemia, unspecified; E03.9 Hypothyroidism, unspecified; Z91.040 Latex allergy status; Z88.8 Allergy status to other drugs, medicaments and biological substances; Z79.899 Other long term (current) drug therapy; Z88.5 Allergy status to narcotic agent; Z98.890 Other specified postprocedural states; Z90.49 Acquired absence of other specified parts of digestive tract
CPT/HCPCS: 36415; 80048; 83036; 85025; 93005; 93010; 99283; 99284-25

== ENCOUNTER 2019-05-17 19:12 | Emergency (ER) | payer MEDICARE, BC ==
[2019-05-17 19:47] VITALS: BP 127/67; PULSE 71
--- NOTE | 2019-05-17 19:53 | EDM.PDOC ---
ED HPI GENERAL MEDICAL PROBLEM - General Stated Complaint: HEARTBURN Time Seen by Provider: 05/17/19 19:35 Source of Information: Reports: Patient History Limitations: Reports: No Limitations - History of Present Illness INITIAL COMMENTS - FREE TEXT/NARRATIVE: pt c/o abd cramping and constipation, tells me this is typical with her IBS and get this pain frequently , pt report long Hx of reflex disease and recurrent heartburn, denies fever chills or any other associated sx or concerns, currently pt is on omeprazole 40 daily. last BM was about a hr ago . was hard , no blood. report Hx of cholecystectomy. - Related Data Allergies Allergy/AdvReac Type Severity Reaction Status Date / Time codeine Allergy Swelling Verified 02/01/19 07:43 hydrocodone Allergy Cannot Verified 02/01/19 07:43 Remember latex Allergy Cannot Verified 02/01/19 07:43 Remember phenylephrine HCl Allergy Cannot Verified 02/01/19 07:43 [From Mydfrin] Remember triamcinolone acetonide Allergy Cannot Verified 02/01/19 18:39 [From Kenalog] Remember meperidine HCl [From Demerol] AdvReac Nausea and Verified 02/01/19 07:43 Vomiting Home Meds: Home Meds Carboxymethylcell/Hypromellose [GenTeal Moderate to Severe Gel Drops] 1 drop EYEBOTH ASDIRECTED PRN 08/21/14 [History] Cranberry Fruit Extract [Cranberry] 1,000 mg PO DAILY 08/21/14 [History] Hydrocortisone [Procto-Med Hc] 1 applic TOP BID PRN 06/08/17 [History] Levothyroxine [Synthroid] 25 mcg PO ACBREAKFAST 06/08/17 [History] Calcium Carbonate [Tums] 2 tab PO ASDIRECTED PRN 06/09/17 [History] cycloSPORINE [Restasis] 1 drop EYEBOTH BID PRN 06/09/17 [History] Mupirocin Calcium [Bactroban] 1 applic TOP TID PRN 06/22/17 [History] Gabapentin [Neurontin] 1,200 mg PO DAILY 09/07/17 [History] .Probiotic Product 1 tab PO DAILY 02/01/19 [History] Amitriptyline [Elavil] 10 mg PO BEDTIME 02/01/19 [History] Azelastine [Astelin Nasal Soln] 2 sprays DANAY BID 02/01/19 [History] Desoximetasone [Desoximetasone 0.25%] 1 applic TOP BID 02/01/19 [History] Estrogens, Conjugated [Premarin Vaginal Crm] 1 applic VAG ASDIRECTED PRN [History] Hydrocortisone [Hydrocortisone 2.5% Crm] 1 applic TOP BID PRN 02/01/19 [History] Ipratropium [Atrovent 0.03% Nasal [place]] 2 sprays DANAY BID 02/01/19 [History] Ketotifen [Ketotifen 0.025% Ophth Soln] 1 drop EYEBOTH ASDIRECTED PRN 02/01/19 [ History] Montelukast [Singulair] 10 mg PO BEDTIME 02/01/19 [History] Pantoprazole Sodium [Protonix] 40 mg PO BIDAC 02/01/19 [History] Pramoxine HCl/Benzyl Alcohol [Itch-X] 1 applic TOP ASDIRECTED PRN 02/01/19 [ History] Tretinoin [Retin-A] 1 applic TOP BEDTIME 02/01/19 [History] Triamcinolone Acetonide [Kenalog 0.1% Crm] 1 applic TOP BID 02/01/19 [History] Wheat Dextrin [Benefiber] 1 tsp PO BID 02/01/19 [History] Zolpidem Tartrate [Ambien] 2.5 mg PO BEDTIME PRN 02/01/19 [History] amLODIPine [Norvasc] 5 mg PO DAILY 02/01/19 [History] guaiFENesin [Mucinex] 600 mg PO BID PRN 02/01/19 [History] Past Medical History - Past Health History Medical/Surgical History: Denies Medical/Surgical History HEENT History: Reports: Allergic Rhinitis, Glaucoma, Impaired Vision, Sinusitis , Other (See Below) Other HEENT History: KERATOCONJUNCTIVITIS SICCA BOTH EYES, ALLERGIC CONJUCTIVITIS Cardiovascular History: Reports: High Cholesterol, Hypertension Respiratory History: Reports: Bronchitis, Recurrent, Pneumonia, Recurrent Other Respiratory History: RESPIRATORY ALLERGIES Gastrointestinal History: Reports: Cholelithiasis, Chronic Constipation, GERD, Hiatal Hernia, Inflammatory Bowel Disease Other Gastrointestinal History: states that she has recurrent irritation to her anal area if she has diarrhea or if she is constipated. 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 Musculoskeletal History: Reports: Back Pain, Chronic, Fracture, Neck Pain, Chronic, Osteoarthritis Other Musculoskeletal History: hx fx L ankle x 2, fx L ribs, facial fx, fx back Neurological History: Reports: Concussion, Migraines, Vertigo, Other (See Below) Other Neuro History: Brain tumor-benign Endocrine/Metabolic History: Reports: Hypothyroidism Hematologic History: Reports: Anesthesia Reaction, Blood Transfusion(s) Immunologic History: Reports: Other (See Below) Other Immunologic History: CHRONIC SINUS INFECTIONS Dermatologic History: Reports: Other (See Below) Other Dermatologic History: VARIOUS RASHES - Infectious Disease History Infectious Disease History: Reports: Chicken Pox, Measles, Mumps, Shingles - Past Surgical History Head Surgeries/Procedures: Reports: None HEENT Surgical History: Reports: Naso-Sinus Surgery, Tonsillectomy Other HEENT Surgeries/Procedures: nose surgery, face surgery GI Surgical History: Reports: Appendectomy, Cholecystectomy, Colonoscopy, EGD, Hernia Repair/Other, Denae Fundoplication, Other (See Below) Other GI Surgeries/Procedures: hiatal hernia repair Female Surgical History: Reports: None Neurological Surgical History: Reports: Spinal Fusion Other Neurological Surgeries/Procedures: benign brain tumor removed Musculoskeletal Surgical History: Reports: Other (See Below) Other Musculoskeletal Surgeries/Procedures:: spinal fusion, 4 toe surgeries, R hand surgery Social & Family History - Family History Family Medical History: Noncontributory - Caffeine Use Caffeine Use: Reports: Soda ED ROS GENERAL - Review of Systems Review Of Systems: See Below Constitutional: Reports: No Symptoms Respiratory: Reports: No Symptoms Cardiovascular: Reports: No Symptoms GI/Abdominal: Reports: Abdominal Pain, Constipation, Nausea. Denies: Hematochezia, Melena Musculoskeletal: Reports: No Symptoms Skin: Reports: No Symptoms Neurological: Reports: No Symptoms ED EXAM, GENERAL - Physical Exam Exam: See Below Exam Limited By: No Limitations General Appearance: Alert, No Apparent Distress (pt appear comfortable here. ) Respiratory/Chest: No Respiratory Distress, Lungs Clear Cardiovascular: Normal Peripheral Pulses, Regular Rate, Rhythm GI/Abdominal: Normal Bowel Sounds, Non-Tender, No Distention. No: Guarding, Rebound Back Exam: Normal Inspection Extremities: Normal Inspection, No Pedal Edema Course - Vital Signs Text/Narrative:: pt has chronic Sx of IBS and reflux disease . was given gi cocktail, Toradol 30 and vestril . was asked to use her miralx at home and follow with PCP in few days for re- check. Last Recorded V/S: Last Vital Signs Temp 36.6 C 05/17/19 19:25 Pulse 71 05/17/19 19:25 Resp 16 05/17/19 19:25 BP 127/67 05/17/19 19:25 Pulse Ox 100 05/17/19 19:25 Departure - Departure Time of Disposition: 19:53 Disposition: Home, Self-Care 01 Clinical Impression: IBS (irritable bowel syndrome) Qualifiers: Irritable bowel syndrome type: with diarrhea Qualified Code(s): K58.0 - Irritable bowel syndrome with diarrhea - Discharge Information Referrals: Mikhail Meraz MD [Primary Care Provider] - Sepsis Event Note - Evaluation Sepsis Screening Result: No Definite Risk - Focused Exam Vital Signs: Vital Signs Temp Pulse Resp BP Pulse Ox 05/17/19 19:25 36.6 C 71 16 127/67 100 Date Exam was Performed: 05/17/19 Time Exam was Performed: 19:47
[2019-05-17] MEDS ORDERED: Alum Hydroxide/Mag Hydroxide 15 ML, Lidocaine 2% 15 ML PO ONE ×2 (19:54)
[2019-05-17] MEDS ORDERED: hydrOXYzine HCl 50 MG/ML SDV IM ONE (19:54)
[2019-05-17] MEDS ORDERED: Ketorolac 30 MG/ML SDV IM ONE (19:54)
== END 2019-05-17 20:30 | disposition home or self-care (01) ==
LOC: FB.ED 19:12
DX: K58.0 Irritable bowel syndrome with diarrhea (principal); I10 Essential (primary) hypertension; K21.9 Gastro-esophageal reflux disease without esophagitis; E03.9 Hypothyroidism, unspecified; Z88.5 Allergy status to narcotic agent; Z91.040 Latex allergy status; Z88.8 Allergy status to other drugs, medicaments and biological substances; Z79.899 Other long term (current) drug therapy; Z79.890 Hormone replacement therapy
CPT/HCPCS: 99283; A9270; J1885; J3410

== ENCOUNTER 2019-10-14 23:54 | Emergency (ER) | payer MEDICARE, BC ==
[2019-10-15 00:07] VITALS: BP 113/61; PULSE 67
[2019-10-15] MEDS ORDERED: hydrOXYzine HCl 50 MG/ML SDV IM ONE (00:49)
--- NOTE | 2019-10-15 01:03 | EDM.PDOC ---
ED HPI GENERAL MEDICAL PROBLEM - General Chief Complaint: Head Injury Stated Complaint: HEAD INJURY Time Seen by Provider: 10/15/19 00:10 Source of Information: Reports: Patient History Limitations: Reports: No Limitations - History of Present Illness INITIAL COMMENTS - FREE TEXT/NARRATIVE: Patient presented to the ED because of a head injury. A kelly's hook accidentally hit her left jewish area and c/o headache,4/10, with associated nausea but no vomiting. She also c/o diarrhea with some cramping due to her IBS. 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, Cold Therapy Left Head Pain Score (Numeric/FACES): 5 - Related Data Allergies Allergy/AdvReac Type Severity Reaction Status Date / Time codeine Allergy Swelling Verified 10/15/19 00:01 hydrocodone Allergy Cannot Verified 10/15/19 00:01 Remember latex Allergy Cannot Verified 10/15/19 00:01 Remember phenylephrine HCl Allergy Cannot Verified 10/15/19 00:01 [From Mydfrin] Remember triamcinolone acetonide Allergy Cannot Verified 10/15/19 00:01 [From Kenalog] Remember meperidine HCl [From Demerol] AdvReac Nausea and Verified 10/15/19 00:01 Vomiting Home Meds: Home Meds Carboxymethylcell/Hypromellose [GenTeal Moderate to Severe Gel Drops] 1 drop EYEBOTH ASDIRECTED PRN 08/21/14 [History] Cranberry Fruit Extract [Cranberry] 1,000 mg PO DAILY 08/21/14 [History] Hydrocortisone [Procto-Med Hc] 1 applic TOP BID PRN 06/08/17 [History] Levothyroxine [Synthroid] 25 mcg PO ACBREAKFAST 06/08/17 [History] Calcium Carbonate [Tums] 2 tab PO ASDIRECTED PRN 06/09/17 [History] cycloSPORINE [Restasis] 1 drop EYEBOTH BID PRN 06/09/17 [History] Mupirocin Calcium [Bactroban] 1 applic TOP TID PRN 06/22/17 [History] Gabapentin [Neurontin] 1,200 mg PO BEDTIME PRN 09/07/17 [History] .Probiotic Product 1 tab PO DAILY 02/01/19 [History] Amitriptyline [Elavil] 10 mg PO BEDTIME 02/01/19 [History] Azelastine [Astelin Nasal Soln] 2 sprays DANAY BID 02/01/19 [History] Desoximetasone [Desoximetasone 0.25%] 1 applic TOP BID 02/01/19 [History] Estrogens, Conjugated [Premarin Vaginal Crm] 1 applic VAG ASDIRECTED PRN [History] Hydrocortisone [Hydrocortisone 2.5% Crm] 1 applic TOP BID PRN 02/01/19 [History] Ipratropium [Atrovent 0.03% Nasal [place]] 2 sprays DANAY BID 02/01/19 [History] Ketotifen [Ketotifen 0.025% Ophth Soln] 1 drop EYEBOTH ASDIRECTED PRN 02/01/19 [ History] Montelukast [Singulair] 10 mg PO BEDTIME 02/01/19 [History] Pramoxine HCl/Benzyl Alcohol [Itch-X] 1 applic TOP ASDIRECTED PRN 02/01/19 [ History] Tretinoin [Retin-A] 1 applic TOP BEDTIME 02/01/19 [History] Triamcinolone Acetonide [Kenalog 0.1% Crm] 1 applic TOP BID 02/01/19 [History] Wheat Dextrin [Benefiber] 1 tsp PO BID 02/01/19 [History] Zolpidem Tartrate [Ambien] 2.5 mg PO BEDTIME PRN 02/01/19 [History] amLODIPine [Norvasc] 5 mg PO DAILY 02/01/19 [History] guaiFENesin [Mucinex] 600 mg PO BID PRN 02/01/19 [History] Docusate Sodium [Colace] 100 mg PO BID 05/17/19 [History] hydrOXYzine pamoate [Vistaril] 50 mg PO Q6H PRN #30 cap 10/15/19 [Rx] Past Medical History - Past Health History Medical/Surgical History: Denies Medical/Surgical History HEENT History: Reports: Allergic Rhinitis, Glaucoma, Impaired Vision, Sinusitis , Other (See Below) Other HEENT History: KERATOCONJUNCTIVITIS SICCA BOTH EYES, ALLERGIC CONJUCTIVITIS Cardiovascular History: Reports: High Cholesterol, Hypertension Respiratory History: Reports: Bronchitis, Recurrent, Pneumonia, Recurrent Other Respiratory History: RESPIRATORY ALLERGIES Gastrointestinal History: Reports: Cholelithiasis, Chronic Constipation, GERD, Hiatal Hernia, Inflammatory Bowel Disease Other Gastrointestinal History: states that she has recurrent irritation to her anal area if she has diarrhea or if she is constipated. 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 Musculoskeletal History: Reports: Back Pain, Chronic, Fracture, Neck Pain, Chronic, Osteoarthritis Other Musculoskeletal History: hx fx L ankle x 2, fx L ribs, facial fx, fx back Neurological History: Reports: Concussion, Migraines, Vertigo, Other (See Below) Other Neuro History: Brain tumor-benign Endocrine/Metabolic History: Reports: Hypothyroidism Hematologic History: Reports: Anesthesia Reaction, Blood Transfusion(s) Immunologic History: Reports: Other (See Below) Other Immunologic History: CHRONIC SINUS INFECTIONS Dermatologic History: Reports: Other (See Below) Other Dermatologic History: VARIOUS RASHES - Infectious Disease History Infectious Disease History: Reports: Chicken Pox, Measles, Mumps, Shingles - Past Surgical History Head Surgeries/Procedures: Reports: None HEENT Surgical History: Reports: Naso-Sinus Surgery, Tonsillectomy Other HEENT Surgeries/Procedures: nose surgery, face surgery GI Surgical History: Reports: Appendectomy, Cholecystectomy, Colonoscopy, EGD, Hernia Repair/Other, Denae Fundoplication, Other (See Below) Other GI Surgeries/Procedures: hiatal hernia repair Female Surgical History: Reports: None Neurological Surgical History: Reports: Spinal Fusion Other Neurological Surgeries/Procedures: benign brain tumor removed Musculoskeletal Surgical History: Reports: Other (See Below) Other Musculoskeletal Surgeries/Procedures:: spinal fusion, 4 toe surgeries, R hand surgery Social & Family History - Family History Family Medical History: Noncontributory - Tobacco Use Smoking Status *Q: Never Smoker - Caffeine Use Caffeine Use: Reports: None - Recreational Drug Use Recreational Drug Use: No ED ROS GENERAL - Review of Systems Review Of Systems: See Below Constitutional: Reports: No Symptoms HEENT: Reports: No Symptoms Respiratory: Reports: No Symptoms Cardiovascular: Reports: No Symptoms Endocrine: Reports: No Symptoms GI/Abdominal: Reports: Diarrhea, Nausea. Denies: Vomiting Musculoskeletal: Reports: No Symptoms Skin: Reports: No Symptoms ED EXAM, HEAD INJURY - Physical Exam Exam: See Below Exam Limited By: No Limitations General Appearance: Alert, No Apparent Distress Head: Atraumatic, Normocephalic Ears: Normal External Exam, Normal Canal, Hearing Grossly Normal Nose: Normal Inspection, Normal Mucousa, No Blood Throat/Mouth: Normal Inspection, Normal Lips, Normal Teeth, Normal Gums Neck: Non-Tender, Full Range of Motion, Normal Alignment, Normal Inspection Respiratory: No Respiratory Distress, Lungs Clear, Normal Breath Sounds Cardiovascular: Normal Peripheral Pulses, Regular Rate, Rhythm, No Edema, No Gallop GI/Abdominal Exam: Normal Bowel Sounds, Soft, Non-Tender, No Organomegaly Back Exam: Normal Inspection, Full Range of Motion Extremities: Normal Inspection, Normal Range of Motion, Non-Tender Course - Vital Signs Text/Narrative:: head CT-neg Vistaril 50 mg IM x1 Last Recorded V/S: Last Vital Signs Temp 36.4 C 10/15/19 00:04 Pulse 67 10/15/19 00:04 Resp 16 10/15/19 00:04 BP 113/61 10/15/19 00:04 Pulse Ox 100 10/15/19 00:04 - Orders/Labs/Meds Orders: Active Orders 24 hr Category Date Time Status Head wo Cont [CT] Stat Exams 10/15/19 00:55 Taken Meds: Medications Discontinued Medications Generic Name Dose Route Start Last Admin Trade Name Freq PRN Reason Stop Dose Admin Hydroxyzine HCl 50 mg 10/15/19 00:49 10/15/19 00:54 Vistaril IM 10/15/19 00:50 50 mg ONETIME ONE Administration Hydroxyzine Pamoate 50 mg 10/15/19 00:38 10/15/19 00:47 Vistaril PO 10/15/19 00:39 Not Given NOW STA Departure - Departure Time of Disposition: 01:40 Disposition: Home, Self-Care 01 Condition: Good Clinical Impression: Closed head injury, IBS (irritable bowel syndrome) - Discharge Information Prescriptions: hydrOXYzine pamoate [Vistaril] 50 mg PO Q6H PRN #30 cap PRN Reason: Nausea Instructions: Head Injury, Adult, [id number], Irritable Bowel Syndrome, Adult Referrals: Mikhail Meraz MD [Primary Care Provider] - Forms: ED Department Discharge Additional Instructions: please read discharge instructions on closed head injury and IBS increase oral fluids imodium 2 tablets every 6 hours as needed for diarrhea tylenol 1000 mg every 8 hours as needed for headache vistaril 50 mg every 6 hours as needed for nausea/anxiety/sleep follow up as needed Sepsis Event Note - Evaluation Sepsis Screening Result: No Definite Risk - Focused Exam Vital Signs: Vital Signs Temp Pulse Resp BP Pulse Ox 10/15/19 00:04 36.4 C 67 16 113/61 100 Date Exam was Performed: 10/15/19 Time Exam was Performed: 01:03 - My Orders Last 24 Hours: My Active Orders 10/15/19 00:55 Head wo Cont [CT] Stat - Assessment/Plan Last 24 Hours: My Active Orders 10/15/19 00:55 Head wo Cont [CT] Stat
== END 2019-10-15 01:17 | disposition home or self-care (01) ==
LOC: FB.ED 23:54
DX: S09.90XA Unspecified injury of head, initial encounter (principal); K58.0 Irritable bowel syndrome with diarrhea; I10 Essential (primary) hypertension; E78.00 Pure hypercholesterolemia, unspecified; K21.9 Gastro-esophageal reflux disease without esophagitis; E03.9 Hypothyroidism, unspecified; Z88.5 Allergy status to narcotic agent; Z91.040 Latex allergy status; Z88.8 Allergy status to other drugs, medicaments and biological substances; Z79.899 Other long term (current) drug therapy; W22.8XXA Striking against or struck by other objects, initial encounter
CPT/HCPCS: 70450; 96372; 99284; J3410; 99283; A9270-GY

== ENCOUNTER 2020-03-16 20:31 | Emergency (ER) | payer MEDICARE, BC ==
[2020-03-16] MEDS ORDERED: hydrOXYzine HCl 50 MG/ML SDV IM ONE (22:37)
[2020-03-16] MEDS ORDERED: Sodium Chloride 0.9% 1,000 ML IV SCH (22:45)
[2020-03-16] MEDS ORDERED: Ketorolac 15 MG/ML SDV IVPUSH ONE (22:45)
--- NOTE | 2020-03-17 00:08 | EDM.PDOC ---
ED HPI GENERAL MEDICAL PROBLEM - General Chief Complaint: Gastrointestinal Problem Stated Complaint: NASEAU, DEHYDRATED Time Seen by Provider: 03/16/20 21:30 Source of Information: Reports: Patient History Limitations: Reports: No Limitations - History of Present Illness INITIAL COMMENTS - FREE TEXT/NARRATIVE: states she has IBS on thursday she cleaned her yard and thinks she over did it developed abdominal pain and diarrhea thursday night , got worse thursday and Since then has since stopped Now has epigastric pain : has not been able to eat well sine the onset of diarrhea usually takes Vistaril and toradol to control her symptoms Onset: Gradual Onset Date: 03/12/20 Duration: Day(s): (5), Intermittent, Waxing/Waning Location: Reports: Abdomen Quality: Reports: Ache, Dull, Same as Previous Episode Severity: Moderate Improves with: Reports: Heat Therapy, Rest Worsens with: Reports: Eating Context: Reports: Other Associated Symptoms: Reports: Headaches, Loss of Appetite - Related Data Allergies Allergy/AdvReac Type Severity Reaction Status Date / Time codeine Allergy Swelling Verified 10/15/19 00:01 hydrocodone Allergy Cannot Verified 10/15/19 00:01 Remember latex Allergy Cannot Verified 10/15/19 00:01 Remember phenylephrine HCl Allergy Cannot Verified 10/15/19 00:01 [From Mydfrin] Remember triamcinolone acetonide Allergy Cannot Verified 10/15/19 00:01 [From Kenalog] Remember meperidine HCl [From Demerol] AdvReac Nausea and Verified 10/15/19 00:01 Vomiting Home Meds: Home Meds Carboxymethylcell/Hypromellose [GenTeal Moderate to Severe Gel Drops] 1 drop EYEBOTH ASDIRECTED PRN 08/21/14 [History] Cranberry Fruit Extract [Cranberry] 1,000 mg PO DAILY 08/21/14 [History] Hydrocortisone [Procto-Med Hc] 1 applic TOP BID PRN 06/08/17 [History] Levothyroxine [Synthroid] 25 mcg PO ACBREAKFAST 06/08/17 [History] Calcium Carbonate [Tums] 2 tab PO ASDIRECTED PRN 06/09/17 [History] cycloSPORINE [Restasis] 1 drop EYEBOTH BID PRN 06/09/17 [History] Mupirocin Calcium [Bactroban] 1 applic TOP TID PRN 06/22/17 [History] Gabapentin [Neurontin] 1,200 mg PO BEDTIME PRN 09/07/17 [History] .Probiotic Product 1 tab PO DAILY 02/01/19 [History] Amitriptyline [Elavil] 10 mg PO BEDTIME 02/01/19 [History] Azelastine [Astelin Nasal Soln] 2 sprays DANAY BID 02/01/19 [History] Desoximetasone [Desoximetasone 0.25%] 1 applic TOP BID 02/01/19 [History] Estrogens, Conjugated [Premarin Vaginal Crm] 1 applic VAG ASDIRECTED PRN 02/01/19 [History] Hydrocortisone [Hydrocortisone 2.5% Crm] 1 applic TOP BID PRN 02/01/19 [History] Ipratropium [Atrovent 0.03% Nasal [place]] 2 sprays DANAY BID 02/01/19 [History] Ketotifen [Ketotifen 0.025% Ophth Soln] 1 drop EYEBOTH ASDIRECTED PRN 02/01/19 [History] Montelukast [Singulair] 10 mg PO BEDTIME 02/01/19 [History] Pramoxine HCl/Benzyl Alcohol [Itch-X] 1 applic TOP ASDIRECTED PRN 02/01/19 [History] Tretinoin [Retin-A] 1 applic TOP BEDTIME 02/01/19 [History] Triamcinolone Acetonide [Kenalog 0.1% Crm] 1 applic TOP BID 02/01/19 [History] Wheat Dextrin [Benefiber] 1 tsp PO BID 02/01/19 [History] Zolpidem Tartrate [Ambien] 2.5 mg PO BEDTIME PRN 02/01/19 [History] amLODIPine [Norvasc] 5 mg PO DAILY 02/01/19 [History] guaiFENesin [Mucinex] 600 mg PO BID PRN 02/01/19 [History] Docusate Sodium [Colace] 100 mg PO BID 05/17/19 [History] hydrOXYzine pamoate [Vistaril] 50 mg PO Q6H PRN #30 cap 10/15/19 [Rx] Past Medical History - Past Health History Medical/Surgical History: Denies Medical/Surgical History HEENT History: Reports: Allergic Rhinitis, Glaucoma, Impaired Vision, Sinusitis, Other (See Below) Other HEENT History: KERATOCONJUNCTIVITIS SICCA BOTH EYES, ALLERGIC CONJUCTIVITIS Cardiovascular History: Reports: High Cholesterol, Hypertension Respiratory History: Reports: Bronchitis, Recurrent, Pneumonia, Recurrent Other Respiratory History: RESPIRATORY ALLERGIES Gastrointestinal History: Reports: Cholelithiasis, Chronic Constipation, GERD, Hiatal Hernia, Inflammatory Bowel Disease Other Gastrointestinal History: states that she has recurrent irritation to her anal area if she has diarrhea or if she is constipated. Genitourinary History: Reports: UTI, Recurrent [employer] History: Reports: Other [employer] History: G0 Musculoskeletal History: Reports: Back Pain, Chronic, Fracture, Neck Pain, Chron ic, Osteoarthritis Other Musculoskeletal History: hx fx L ankle x 2, fx L ribs, facial fx, fx back Neurological History: Reports: Concussion, Migraines, Vertigo, Other (See Below) Other Neuro History: Brain tumor-benign Endocrine/Metabolic History: Reports: Hypothyroidism Hematologic History: Reports: Anesthesia Reaction, Blood Transfusion(s) Immunologic History: Reports: Other (See Below) Other Immunologic History: CHRONIC SINUS INFECTIONS Dermatologic History: Reports: Other (See Below) Other Dermatologic History: VARIOUS RASHES - Infectious Disease History Infectious Disease History: Reports: Chicken Pox, Measles, Mumps, Shingles - Past Surgical History Head Surgeries/Procedures: Reports: None HEENT Surgical History: Reports: Naso-Sinus Surgery, Tonsillectomy Other HEENT Surgeries/Procedures: nose surgery, face surgery GI Surgical History: Reports: Appendectomy, Cholecystectomy, Colonoscopy, EGD, Hernia Repair/Other, Denae Fundoplication, Other (See Below) Other GI Surgeries/Procedures: hiatal hernia repair Female Surgical History: Reports: None Neurological Surgical History: Reports: Spinal Fusion Other Neurological Surgeries/Procedures: benign brain tumor removed Musculoskeletal Surgical History: Reports: Other (See Below) Other Musculoskeletal Surgeries/Procedures:: spinal fusion, 4 toe surgeries, R hand surgery Social & Family History - Family History Family Medical History: Noncontributory - Caffeine Use Caffeine Use: Reports: None ED ROS GENERAL - Review of Systems Review Of Systems: See Below Constitutional: Reports: Malaise, Weakness, Fatigue, Decreased Appetite, Other (feels dehydrated) HEENT: Reports: No Symptoms Respiratory: Reports: No Symptoms Cardiovascular: Reports: No Symptoms Endocrine: Reports: No Symptoms GI/Abdominal: Reports: Anorexia, Diarrhea, Decreased Appetite : Reports: No Symptoms Musculoskeletal: Reports: No Symptoms Skin: Reports: No Symptoms Neurological: Reports: No Symptoms Psychiatric: Reports: No Symptoms ED EXAM, GI/ABD - Physical Exam Exam: See Below Exam Limited By: No Limitations General Appearance: Alert, No Apparent Distress, Lethargic Eyes: Bilateral: EOMI Ears: Normal External Exam Throat/Mouth: Other (dry mucosa) Head: Atraumatic, Normocephalic Neck: Supple, Non-Tender Respiratory/Chest: Lungs Clear, Normal Breath Sounds Cardiovascular: Regular Rate, Rhythm GI/Abdominal Exam: Soft, Other (flat , hypoactive BS, tender on deep palpation) Extremities: Normal Inspection, Normal Range of Motion Neurological: Alert, Oriented, CN II-XII Intact Psychiatric: Normal Affect, Normal Mood Course - Vital Signs Last Recorded V/S: Last Vital Signs Temp 36.3 C 03/16/20 20:50 Pulse 66 03/16/20 20:50 Resp 16 03/16/20 20:50 BP 144/83 H 03/16/20 20:50 Pulse Ox 100 03/16/20 20:50 - Orders/Labs/Meds Labs: Laboratory Tests 03/16/20 03/16/20 03/16/20 Range/Units 22:53 22:53 22:53 WBC 3.3 L (4.5-12.0) X10-3/uL RBC 4.13 (3.23-5.20) x10(6)uL Hgb 12.8 (11.5-15.5) g/dL Hct 37.2 (30.0-51.3) % MCV 90.2 (80-96) fL MCH 30.9 (27.7-33.6) pg MCHC 34.3 (32.2-35.4) g/dL RDW 12.7 (11.5-15.5) % Plt Count 147 (125-369) X10(3)uL Sodium 140 (135-145) mmol/L Potassium 3.7 (3.5-5.3) mmol/L Chloride 102 (100-110) mmol/L Carbon Dioxide 30 (21-32) mmol/L BUN 12 D (7-18) mg/dL Creatinine 0.7 (0.55-1.02) mg/dL Est Cr Clr Drug Dosing TNP Estimated GFR (MDRD) > 60 (>60) BUN/Creatinine Ratio 17.1 (9-20) Glucose 102 (80-116) mg/dL Calcium 9.2 (8.6-10.2) mg/dL NT-Pro-B Natriuret Pep 195 H (<=125) pg/mL Meds: Medications Discontinued Medications Generic Name Dose Route Start Last Admin Trade Name Ileana PRN Reason Stop Dose Admin Hydroxyzine HCl 50 mg 03/16/20 22:37 03/16/20 23:44 Vistaril IM 03/16/20 22:38 50 mg ONETIME ONE Administration Sodium Chloride 1,000 mls @ 999 mls/hr 03/16/20 22:45 03/16/20 23:43 Normal Saline IV 999 mls/hr ASDIRECTED JESE Administration Ketorolac Tromethamine 15 mg 03/16/20 22:45 03/16/20 23:51 Toradol IVPUSH 03/16/20 22:46 15 mg ONETIME ONE Administration - Re-Assessments/Exams Free Text/Narrative Re-Assessment/Exam: 03/17/20 00:09 pt had Lbs don e Given 1liter of IVF, vistaril and toradol patient felt better after the infusion 03/17/20 09:22 Departure - Departure Time of Disposition: 00:45 Disposition: Home, Self-Care 01 Condition: Good Clinical Impression: IBS (irritable bowel syndrome), Stomach spasm, Dehydration - Discharge Information *PRESCRIPTION DRUG MONITORING PROGRAM REVIEWED*: Not Applicable *COPY OF PRESCRIPTION DRUG MONITORING REPORT IN PATIENT RANJAN: Not Applicable Instructions: Low-FODMAP Eating Plan, Diet for Irritable Bowel Syndrome, Dehydration, Elderly, [id number], Irritable Bowel Syndrome, Adult, Probiotics Referrals: Jillian Curran, [employer] TEACHER [Primary Care Provider] - Forms: ED Department Discharge, ED Department Discharge Additional Instructions: 1) Increase fluid intake 2) Continue with all other medications 3) schedule an appointment to see your PCP
[2020-03-20 03:18] VITALS: BP 159/76; PULSE 68
== END 2020-03-17 00:45 | disposition home or self-care (01) ==
LOC: FB.ED 20:31
DX: K58.9 Irritable bowel syndrome, unspecified (principal); K31.89 Other diseases of stomach and duodenum; E86.0 Dehydration; I10 Essential (primary) hypertension; E03.9 Hypothyroidism, unspecified; Z88.5 Allergy status to narcotic agent; Z91.040 Latex allergy status; Z88.8 Allergy status to other drugs, medicaments and biological substances; Z79.899 Other long term (current) drug therapy
CPT/HCPCS: 36415; 80048; 83880; 85027; 96372; 96374; 99284; J1885; J3410; J7030

== ENCOUNTER 2020-06-16 13:36 | Emergency (ER) | payer MEDICARE, BC ==
[2020-06-16] MEDS ORDERED: Ondansetron 4 MG Tab.DIS PO ONE (13:37)
[2020-06-16] MEDS ORDERED: Sodium Chloride 0.9% 10 ML Syringe FLUSH PRN (14:19)
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
[2020-06-16] MEDS ORDERED: Ondansetron 4 MG/2 ML SDV IVPUSH ONE (14:20)
[2020-06-16] MEDS ORDERED: Sodium Chloride 0.9% 500 ML IV ONE (14:20)
[2020-06-16] MEDS ORDERED: Sodium Chloride 0.9% 1,000 ML IV SCH (14:30)
[2020-06-16 16:21] VITALS: BP 142/66; PULSE 71
[2020-06-16] MEDS ORDERED: Sulfamethoxazole/Trimethoprim 800-160 MG Tab PO ONE (16:40)
== END 2020-06-16 17:10 | disposition home or self-care (01) ==
LOC: FB.ED 13:36
DX: K58.9 Irritable bowel syndrome, unspecified (principal); E86.0 Dehydration; K21.9 Gastro-esophageal reflux disease without esophagitis; E03.9 Hypothyroidism, unspecified; Z88.5 Allergy status to narcotic agent; Z91.040 Latex allergy status; Z88.8 Allergy status to other drugs, medicaments and biological substances; Z79.899 Other long term (current) drug therapy
CPT/HCPCS: 80053; 81001; 83690; 85025; 86140; 96374; 99284; A9270; J2405; J7030; J7040

== ENCOUNTER 2020-11-12 15:48 | Emergency (ER) | payer MEDICARE, BC ==
[2020-11-12 15:57] VITALS: BP 120/70; PULSE 78
[2020-11-12] MEDS: hydrOXYzine HCl 50 MG/ML SDV IM ONE (16:19)
--- NOTE | 2020-11-12 16:21 | EDM.PDOC ---
ED HPI GENERAL MEDICAL PROBLEM - General Chief Complaint: General Stated Complaint: LOOSE STOOLS [id number] Time Seen by Provider: 11/12/20 16:18 Source of Information: Reports: Patient History Limitations: Reports: No Limitations - History of Present Illness INITIAL COMMENTS - FREE TEXT/NARRATIVE: Ms Bravo complains of diarrhea x 3days,nausea and decreased appetite. She has a h/o IBS. No fever. - Related Data Allergies Allergy/AdvReac Type Severity Reaction Status Date / Time codeine Allergy Swelling Verified 06/16/20 13:48 hydrocodone Allergy Cannot Verified 06/16/20 13:48 Remember latex Allergy Cannot Verified 06/16/20 13:48 Remember phenylephrine HCl Allergy Cannot Verified 06/16/20 13:48 [From Mydfrin] Remember triamcinolone acetonide Allergy Cannot Verified 06/16/20 13:48 [From Kenalog] Remember meperidine HCl [From Demerol] AdvReac Nausea and Verified 06/16/20 13:48 Vomiting Home Meds: Home Meds Carboxymethylcell/Hypromellose [GenTeal Moderate to Severe Gel Drops] 1 drop EYEBOTH ASDIRECTED PRN 08/21/14 [History] Cranberry Fruit Extract [Cranberry] 1,000 mg PO BEDTIME 08/21/14 [History] Hydrocortisone [Procto-Med Hc] 1 applic TOP BID PRN 06/08/17 [History] Levothyroxine [Synthroid] 25 mcg PO ACBREAKFAST 06/08/17 [History] cycloSPORINE [Restasis] 1 drop EYEBOTH BID PRN 06/09/17 [History] Mupirocin Calcium [Bactroban] 1 applic TOP TID PRN 06/22/17 [History] Gabapentin [Neurontin] 1,200 mg PO BEDTIME PRN 09/07/17 [History] .Probiotic Product 1 tab PO DAILY 02/01/19 [History] Amitriptyline [Elavil] 10 mg PO BEDTIME 02/01/19 [History] Azelastine [Astelin Nasal Soln] 2 sprays DANAY BID 02/01/19 [History] Desoximetasone [Desoximetasone 0.25%] 1 applic TOP BID 02/01/19 [History] Ipratropium [Atrovent 0.03% Nasal [place]] 2 sprays DANAY BID PRN 02/01/19 [History] Ketotifen [Ketotifen 0.025% Ophth Soln] 1 drop EYEBOTH ASDIRECTED PRN 02/01/19 [History] Montelukast [Singulair] 10 mg PO BEDTIME 02/01/19 [History] Pramoxine HCl/Benzyl Alcohol [Itch-X] 1 applic TOP ASDIRECTED PRN 02/01/19 [History] Tretinoin [Retin-A] 1 applic TOP BEDTIME 02/01/19 [History] Triamcinolone Acetonide [Kenalog 0.1% Crm] 1 applic TOP BID 02/01/19 [History] Wheat Dextrin [Benefiber] 1 tsp PO BID PRN 02/01/19 [History] Zolpidem Tartrate [Ambien] 2.5 mg PO BEDTIME PRN 02/01/19 [History] amLODIPine [Norvasc] 2.5 mg PO BEDTIME 02/01/19 [History] guaiFENesin [Mucinex] 400 mg PO BID PRN 02/01/19 [History] Docusate Sodium [Colace] 100 mg PO BID PRN 05/17/19 [History] Acetaminophen [Tylenol Arthritis] 1,300 mg PO BID 06/16/20 [History] Acyclovir [Zovirax] 400 mg PO DAILY PRN 06/16/20 [History] Dicyclomine [Bentyl] 10 mg PO BID 06/16/20 [History] Doxycycline [Doxycycline Hyclate] 100 mg PO BID 06/16/20 [History] Sucralfate [Carafate] 1 gm PO BID 06/16/20 [History] Sulfamethoxazole/Trimethoprim [Sulfamethoxazole-Tmp Ds Tablet] 1 each PO BID 10 Days #20 tablet 06/16/20 [Rx] Famotidine 20 mg PO BID 11/12/20 [History] Loperamide [Imodium] 2 mg PO BID 11/12/20 [History] Lysine HCl [l-Lysine] 500 mg PO DAILY 11/12/20 [History] Ondansetron [Zofran ODT] 4 mg PO Q6H PRN #20 tab.dis 11/12/20 [Rx] hydrOXYzine pamoate [Vistaril] 25 mg PO Q8H PRN 11/12/20 [History] Past Medical History - Past Health History Medical/Surgical History: Denies Medical/Surgical History HEENT History: Reports: Allergic Rhinitis, Glaucoma, Impaired Vision, Sinusitis, Other (See Below) Other HEENT History: KERATOCONJUNCTIVITIS SICCA BOTH EYES, ALLERGIC CONJUCTIVITIS Cardiovascular History: Reports: High Cholesterol, Hypertension Respiratory History: Reports: Bronchitis, Recurrent, Pneumonia, Recurrent Other Respiratory History: RESPIRATORY ALLERGIES Gastrointestinal History: Reports: Cholelithiasis, Chronic Constipation, GERD, Hiatal Hernia, Inflammatory Bowel Disease Other Gastrointestinal History: states that she has recurrent irritation to her anal area if she has diarrhea or if she is constipated. Genitourinary History: Reports: UTI, Recurrent DELIVERY AGENT History: Reports: Other DELIVERY AGENT History: G0 Musculoskeletal History: Reports: Back Pain, Chronic, Fracture, Neck Pain, Chronic, Osteoarthritis Other Musculoskeletal History: hx fx L ankle x 2, fx L ribs, facial fx, fx back Neurological History: Reports: Concussion, Migraines, Vertigo, Other (See Below) Other Neuro History: Brain tumor-benign Endocrine/Metabolic History: Reports: Hypothyroidism Hematologic History: Reports: Anesthesia Reaction, Blood Transfusion(s) Immunologic History: Reports: Other (See Below) Other Immunologic History: CHRONIC SINUS INFECTIONS Dermatologic History: Reports: Other (See Below) Other Dermatologic History: VARIOUS RASHES - Infectious Disease History Infectious Disease History: Reports: Chicken Pox, Measles, Mumps, Shingles - Past Surgical History Head Surgeries/Procedures: Reports: None HEENT Surgical History: Reports: Naso-Sinus Surgery, Tonsillectomy Other HEENT Surgeries/Procedures: nose surgery, face surgery GI Surgical History: Reports: Appendectomy, Cholecystectomy, Colonoscopy, EGD, Hernia Repair/Other, Denae Fundoplication, Other (See Below) Other GI Surgeries/Procedures: hiatal hernia repair Female Surgical History: Reports: None Neurological Surgical History: Reports: Spinal Fusion Other Neurological Surgeries/Procedures: benign brain tumor removed Musculoskeletal Surgical History: Reports: Other (See Below) Other Musculoskeletal Surgeries/Procedures:: spinal fusion, 4 toe surgeries, R hand surgery Social & Family History - Family History Family Medical History: No Pertinent Family History - Caffeine Use Caffeine Use: Reports: None - Living Situation & Occupation Occupation: Retired ED ROS GENERAL - Review of Systems Review Of Systems: Comprehensive ROS is negative, except as noted in HPI. ED EXAM, GENERAL - Physical Exam Exam: See Below General Appearance: Alert, WD/WN, No Apparent Distress Respiratory/Chest: No Respiratory Distress GI/Abdominal: Soft Neurological: Alert Psychiatric: Normal Affect Course - Vital Signs Last Recorded V/S: Last Vital Signs Temp 99.4 F 11/12/20 15:54 Pulse 78 11/12/20 15:54 Resp 20 11/12/20 15:54 BP 120/70 11/12/20 15:54 Pulse Ox 98 11/12/20 15:54 - Orders/Labs/Meds Meds: Medications Discontinued Medications Generic Name Dose Route Start Last Admin Trade Name Freq PRN Reason Stop Dose Admin Hydroxyzine HCl 50 mg 11/12/20 16:14 Hydroxyzine Hcl 50 Mg/Ml Sdv IM 11/12/20 16:15 ONETIME ONE Departure - Departure Time of Disposition: 16:20 Disposition: Home, Self-Care 01 Clinical Impression: Diarrhea Qualifiers: Diarrhea type: unspecified type Qualified Code(s): R19.7 - Diarrhea, unspecified - Discharge Information Prescriptions: Ondansetron [Zofran ODT] 4 mg PO Q6H PRN #20 tab.dis PRN Reason: Nausea Sepsis Event Note (ED) - Evaluation Sepsis Screening Result: No Definite Risk - Focused Exam Vital Signs: Vital Signs Temp Pulse Resp BP Pulse Ox 11/12/20 15:54 99.4 F 78 20 120/70 98 - Problem List & Annotations (1) Nausea SNOMED Code(s): 373644209 Code(s): R11.0 - NAUSEA Status: Acute - Problem List Review Problem List Initiated/Reviewed/Updated: Yes - Assessment/Plan Plan: I gave her Vistaril 50 mg IM and DC'ed her on Zofran PRN
== END 2020-11-12 16:28 | disposition home or self-care (01) ==
LOC: FB.ED 15:48
DX: R19.7 Diarrhea, unspecified (principal); E03.9 Hypothyroidism, unspecified; E78.00 Pure hypercholesterolemia, unspecified; I10 Essential (primary) hypertension; Z88.5 Allergy status to narcotic agent; Z91.040 Latex allergy status; Z88.8 Allergy status to other drugs, medicaments and biological substances; Z79.899 Other long term (current) drug therapy
CPT/HCPCS: 96372; 99283; J3410

== ENCOUNTER 2020-12-23 14:11 | Emergency (ER) | payer MEDICARE, BC ==
[2020-12-23] MEDS ORDERED: Sodium Chloride 0.9% 1,000 ML IV ONE (15:12)
[2020-12-23] MEDS ORDERED: Sodium Chloride 0.9% 10 ML Syringe FLUSH PRN (15:13)
[2020-12-23] MEDS ORDERED: Pantoprazole 40 MG Vial IVPUSH ONE (15:21)
--- NOTE | 2020-12-23 15:29 | EDM.PDOC ---
ED HPI GENERAL MEDICAL PROBLEM - General Chief Complaint: Gastrointestinal Problem Stated Complaint: DEHYDRATED Time Seen by Provider: 12/23/20 15:18 Source of Information: Reports: Patient History Limitations: Reports: No Limitations - History of Present Illness INITIAL COMMENTS - FREE TEXT/NARRATIVE: Presents with epigastric pain, nausea, and diarrhea x 2 days. Diarrhea became mucoid today. Patient has not eaten or drank much in the last two days due to nausea. States is urinating normally. Took two tablets of Imodium today. Endorses mild lightheadedness. Patient has a h/o IBS since cholecystectomy @4 years ago. Onset Date: 12/21/20 Severity: Mild Anus Pain Score (Numeric/FACES): 9 - Related Data Allergies Allergy/AdvReac Type Severity Reaction Status Date / Time codeine Allergy Swelling Verified 06/16/20 13:48 hydrocodone Allergy Cannot Verified 06/16/20 13:48 Remember latex Allergy Cannot Verified 06/16/20 13:48 Remember phenylephrine HCl Allergy Cannot Verified 06/16/20 13:48 [From Mydfrin] Remember triamcinolone acetonide Allergy Cannot Verified 06/16/20 13:48 [From Kenalog] Remember meperidine HCl [From Demerol] AdvReac Nausea and Verified 06/16/20 13:48 Vomiting Home Meds: Home Meds Carboxymethylcell/Hypromellose [GenTeal Moderate to Severe Gel Drops] 1 drop EYEBOTH ASDIRECTED PRN 08/21/14 [History] Cranberry Fruit Extract [Cranberry] 1,000 mg PO BEDTIME 08/21/14 [History] Hydrocortisone [Procto-Med Hc] 1 applic TOP BID PRN 06/08/17 [History] Levothyroxine [Synthroid] 25 mcg PO ACBREAKFAST 06/08/17 [History] cycloSPORINE [Restasis] 1 drop EYEBOTH BID PRN 06/09/17 [History] Mupirocin Calcium [Bactroban] 1 applic TOP TID PRN 06/22/17 [History] Gabapentin [Neurontin] 1,200 mg PO BEDTIME PRN 09/07/17 [History] .Probiotic Product 1 tab PO DAILY 02/01/19 [History] Amitriptyline [Elavil] 10 mg PO BEDTIME 02/01/19 [History] Azelastine [Astelin Nasal Soln] 2 sprays DANAY BID 02/01/19 [History] Desoximetasone [Desoximetasone 0.25%] 1 applic TOP BID 02/01/19 [History] Ipratropium [Atrovent 0.03% Nasal [place]] 2 sprays DANAY BID PRN 02/01/19 [History] Ketotifen [Ketotifen 0.025% Ophth Soln] 1 drop EYEBOTH ASDIRECTED PRN 02/01/19 [History] Montelukast [Singulair] 10 mg PO BEDTIME 02/01/19 [History] Pramoxine HCl/Benzyl Alcohol [Itch-X] 1 applic TOP ASDIRECTED PRN 02/01/19 [History] Tretinoin [Retin-A] 1 applic TOP BEDTIME 02/01/19 [History] Triamcinolone Acetonide [Kenalog 0.1% Crm] 1 applic TOP BID 02/01/19 [History] Wheat Dextrin [Benefiber] 1 tsp PO BID PRN 02/01/19 [History] Zolpidem Tartrate [Ambien] 2.5 mg PO BEDTIME PRN 02/01/19 [History] amLODIPine [Norvasc] 2.5 mg PO BEDTIME 02/01/19 [History] guaiFENesin [Mucinex] 400 mg PO BID PRN 02/01/19 [History] Docusate Sodium [Colace] 100 mg PO BID PRN 05/17/19 [History] Acetaminophen [Tylenol Arthritis] 1,300 mg PO BID 06/16/20 [History] Acyclovir [Zovirax] 400 mg PO DAILY PRN 06/16/20 [History] Dicyclomine [Bentyl] 10 mg PO BID 06/16/20 [History] Doxycycline [Doxycycline Hyclate] 100 mg PO BID 06/16/20 [History] Sucralfate [Carafate] 1 gm PO BID 06/16/20 [History] Sulfamethoxazole/Trimethoprim [Sulfamethoxazole-Tmp Ds Tablet] 1 each PO BID 10 Days #20 tablet 06/16/20 [Rx] Famotidine 20 mg PO BID 11/12/20 [History] Loperamide [Imodium] 2 mg PO BID 11/12/20 [History] Lysine HCl [l-Lysine] 500 mg PO DAILY 11/12/20 [History] Ondansetron [Zofran ODT] 4 mg PO Q6H PRN #20 tab.dis 11/12/20 [Rx] hydrOXYzine pamoate [Vistaril] 25 mg PO Q8H PRN 11/12/20 [History] Cefuroxime [Ceftin] 250 mg PO BID #14 tablet 12/23/20 [Rx] Pantoprazole Sodium [Protonix] 40 mg PO DAILY 14 Days #14 tablet. 12/23/20 [Rx] Past Medical History HEENT History: Reports: Allergic Rhinitis, Glaucoma, Impaired Vision, Sinusitis, Other (See Below) Other HEENT History: KERATOCONJUNCTIVITIS SICCA BOTH EYES, ALLERGIC CONJUCTIVITIS Cardiovascular History: Reports: High Cholesterol, Hypertension Respiratory History: Reports: Bronchitis, Recurrent, Pneumonia, Recurrent Other Respiratory History: RESPIRATORY ALLERGIES Gastrointestinal History: Reports: Cholelithiasis, Chronic Constipation, GERD, Hiatal Hernia, Inflammatory Bowel Disease Other Gastrointestinal History: states that she has recurrent irritation to her anal area if she has diarrhea or if she is constipated. 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 History: Reports: Other WEB PRESSMAN History: G0 Musculoskeletal History: Reports: Back Pain, Chronic, Fracture, Neck Pain, Chronic, Osteoarthritis Other Musculoskeletal History: hx fx L ankle x 2, fx L ribs, facial fx, fx back Neurological History: Reports: Concussion, Migraines, Vertigo, Other (See Below) Other Neuro History: Brain tumor-benign Endocrine/Metabolic History: Reports: Hypothyroidism Hematologic History: Reports: Anesthesia Reaction, Blood Transfusion(s) Immunologic History: Reports: Other (See Below) Other Immunologic History: CHRONIC SINUS INFECTIONS Dermatologic History: Reports: Other (See Below) Other Dermatologic History: VARIOUS RASHES - Infectious Disease History Infectious Disease History: Reports: Chicken Pox, Measles, Mumps, Shingles - Past Surgical History Head Surgeries/Procedures: Reports: None HEENT Surgical History: Reports: Naso-Sinus Surgery, Tonsillectomy Other HEENT Surgeries/Procedures: nose surgery, face surgery GI Surgical History: Reports: Appendectomy, Cholecystectomy, Colonoscopy, EGD, Hernia Repair/Other, Denae Fundoplication, Other (See Below) Other GI Surgeries/Procedures: hiatal hernia repair Female Surgical History: Reports: None Neurological Surgical History: Reports: Spinal Fusion Other Neurological Surgeries/Procedures: benign brain tumor removed Musculoskeletal Surgical History: Reports: Other (See Below) Other Musculoskeletal Surgeries/Procedures:: spinal fusion, 4 toe surgeries, R hand surgery Social & Family History - Family History Family Medical History: No Pertinent Family History - Tobacco Use Tobacco Use Status *Q: Unknown Ever Used Tobacco - Caffeine Use Caffeine Use: Reports: None - Alcohol Use Alcohol Use History: No - Living Situation & Occupation Occupation: Retired ED ROS GENERAL - Review of Systems Review Of Systems: Comprehensive ROS is negative, except as noted in HPI. ED EXAM, GI/ABD - Physical Exam Exam: See Below Exam Limited By: No Limitations General Appearance: Alert, WD/WN, No Apparent Distress Throat/Mouth: No Airway Compromise Head: Atraumatic, Normocephalic Neck: Normal Inspection Respiratory/Chest: No Respiratory Distress, Lungs Clear, Normal Breath Sounds Cardiovascular: Regular Rate, Rhythm, No Murmur GI/Abdominal Exam: Normal Bowel Sounds, Soft, No Distention, Tender (mild epigas tric) Back Exam: Full Range of Motion Extremities: Normal Range of Motion Neurological: Alert, Oriented, Normal Cognition Psychiatric: Normal Affect, Normal Mood Skin Exam: Warm, Dry, Intact Course - Vital Signs Last Recorded V/S: Last Vital Signs Temp 36.6 C 12/23/20 14:43 Pulse 87 12/23/20 14:43 Resp 14 12/23/20 14:43 BP 100/59 L 12/23/20 14:43 Pulse Ox 99 12/23/20 14:43 - Orders/Labs/Meds Orders: Active Orders 24 hr Category Date Time Status CULTURE URINE [RM] Stat Lab 12/23/20 16:07 Ordered Sodium Chloride 0.9% [Normal Saline] 1,000 ml Med 12/23/20 15:12 Active IV .BOLUS Sodium Chloride 0.9% [Saline Flush] Med 12/23/20 15:13 Active 10 ml FLUSH ASDIRECTED PRN Saline Lock Insert [OM.PC] Routine Oth 12/23/20 15:13 Ordered Medication Orders Sodium Chloride (Normal Saline) 1,000 mls @ 999 mls/hr IV .BOLUS ONE Stop: 12/23/20 16:12 Sodium Chloride (Sodium Chloride 0.9% 10 Ml Syringe) 10 ml FLUSH ASDIRECTED PRN PRN Reason: Keep Vein Open Labs: Laboratory Tests 12/23/20 12/23/20 12/23/20 Range/Units 15:15 15:25 15:25 WBC 7.2 (3.0-10.3) x10-3/uL RBC 4.97 (3.60-5.20) x10(6)uL Hgb 14.9 (11.4-15.5) g/dL Hct 45.4 (34.2-48.2) % MCV 91.4 (76.7-100.5) fL MCH 29.9 (23.9-33.9) pg MCHC 32.7 (31.9-34.8) g/dL RDW 13.2 (12.3-16.5) % Plt Count 205 (151-488) x10(3)uL MPV 8.7 (7.1-12.4) fL Neut % (Auto) 81.5 H (30.8-76.2) % Lymph % (Auto) 11.8 L (18.4-52.1) % [place] % (Auto) 5.8 (4.4-15.7) % Eos % (Auto) 0.5 L (0.6-8.1) % Baso % (Auto) 0.4 (0.2-1.5) % Neut # (Auto) 5.8 (1.5-6.3) x10-3/uL Lymph # (Auto) 0.8 L (1.0-4.4) x10-3/uL [place] # (Auto) 0.4 (0.3-1.0) x10-3/uL Eos # (Auto) 0.0 (0.0-0.8) x10-3/uL Baso # (Auto) 0.0 (0.0-0.1) x10-3/uL Sodium 146 H (135-145) mmol/L Potassium 3.4 L (3.5-5.3) mmol/L Chloride 105 (100-110) mmol/L Carbon Dioxide 28 (21-32) mmol/L BUN 19 H (7-18) mg/dL Creatinine 1.0 (0.55-1.02) mg/dL Est Cr Clr Drug Dosing 40.64 mL/min Estimated GFR (MDRD) 54 L (>60) BUN/Creatinine Ratio 19.0 (9-20) Glucose 104 (80-116) mg/dL Calcium 9.4 (8.6-10.2) mg/dL Total Bilirubin 1.0 (0.1-1.3) mg/dL AST 21 D (5-25) IU/L ALT 29 (12-36) U/L Alkaline Phosphatase 95 (56-112) IU/L Total Protein 7.9 (6.0-8.0) g/dL Albumin 4.4 (3.2-4.6) g/dL Globulin 3.5 g/dL Albumin/Globulin Ratio 1.3 Lipase (73-393) U/L Urine Color [place] (YELLOW) Urine Appearance Slightly cloudy (CLEAR) Urine pH 5.0 (5.0-6.5) Ur Specific [place] 1.030 H (1.010-1.025) Urine Protein 30 H (NEGATIVE) mg/dL Urine Glucose (UA) 50 H (NORMAL) mg/dL Urine Ketones 15 H (NEGATIVE) mg/dL Urine Occult Blood Moderate H (NEGATIVE) Urine Nitrite Positive H (NEGATIVE) Urine Bilirubin Moderate H (NEGATIVE) Urine Urobilinogen 4 H (NEGATIVE) mg/dL Ur Leukocyte Esterase Large H (NEGATIVE) U Hyaline Cast (Auto) Few H (NS) Urine RBC 5-10 H (0-5) Urine WBC 5-10 H (0-5) Ur Squamous Epith Cells Few H (NS,R,O) Urine Bacteria Moderate H (NS) Urine Mucus Few H (NS) 12/23/20 Range/Units 15:25 WBC (3.0-10.3) x10-3/uL RBC (3.60-5.20) x10(6)uL Hgb (11.4-15.5) g/dL Hct (34.2-48.2) % MCV (76.7-100.5) fL MCH (23.9-33.9) pg MCHC (31.9-34.8) g/dL RDW (12.3-16.5) % Plt Count (151-488) x10(3)uL MPV (7.1-12.4) fL Neut % (Auto) (30.8-76.2) % Lymph % (Auto) (18.4-52.1) % [place] % (Auto) (4.4-15.7) % Eos % (Auto) (0.6-8.1) % Baso % (Auto) (0.2-1.5) % Neut # (Auto) (1.5-6.3) x10-3/uL Lymph # (Auto) (1.0-4.4) x10-3/uL [place] # (Auto) (0.3-1.0) x10-3/uL Eos # (Auto) (0.0-0.8) x10-3/uL Baso # (Auto) (0.0-0.1) x10-3/uL Sodium (135-145) mmol/L Potassium (3.5-5.3) mmol/L Chloride (100-110) mmol/L Carbon Dioxide (21-32) mmol/L BUN (7-18) mg/dL Creatinine (0.55-1.02) mg/dL Est Cr Clr Drug Dosing mL/min Estimated GFR (MDRD) (>60) BUN/Creatinine Ratio (9-20) Glucose (80-116) mg/dL Calcium (8.6-10.2) mg/dL Total Bilirubin (0.1-1.3) mg/dL AST (5-25) IU/L ALT (12-36) U/L Alkaline Phosphatase (56-112) IU/L Total Protein (6.0-8.0) g/dL Albumin (3.2-4.6) g/dL Globulin g/dL Albumin/Globulin Ratio Lipase 72 L (73-393) U/L Urine Color (YELLOW) Urine Appearance (CLEAR) Urine pH (5.0-6.5) Ur Specific [place] (1.010-1.025) Urine Protein (NEGATIVE) mg/dL Urine Glucose (UA) (NORMAL) mg/dL Urine Ketones (NEGATIVE) mg/dL Urine Occult Blood (NEGATIVE) Urine Nitrite (NEGATIVE) Urine Bilirubin (NEGATIVE) Urine Urobilinogen (NEGATIVE) mg/dL Ur Leukocyte Esterase (NEGATIVE) U Hyaline Cast (Auto) (NS) Urine RBC (0-5) Urine WBC (0-5) Ur Squamous Epith Cells (NS,R,O) Urine Bacteria (NS) Urine Mucus (NS) Meds: Medications Generic Name Dose Route Start Last Admin Trade Name Freq PRN Reason Stop Dose Admin Sodium Chloride 1,000 mls @ 999 mls/hr 12/23/20 15:12 Normal Saline IV 12/23/20 16:12 .BOLUS ONE Sodium Chloride 10 ml 12/23/20 15:13 Sodium Chloride 0.9% 10 Ml Syringe FLUSH ASDIRECTED PRN Keep Vein Open Discontinued Medications Generic Name Dose Route Start Last Admin Trade Name Juan Danielq PRN Reason Stop Dose Admin Pantoprazole Sodium 40 mg 12/23/20 15:21 12/23/20 16:02 Pantoprazole 40 Mg Vial IVPUSH 12/23/20 15:22 40 mg ONETIME ONE Administration - Re-Assessments/Exams Free Text/Narrative Re-Assessment/Exam: 12/23/20 16:09 Patient unable to produce a stool sample. Departure - Departure Time of Disposition: 16:10 Disposition: Home, Self-Care 01 Condition: Good Clinical Impression: Dehydration IBS (irritable bowel syndrome) Qualifiers: Irritable bowel syndrome type: unspecified Qualified Code(s): K58.9 - Irritable bowel syndrome without diarrhea UTI (urinary tract infection) Qualifiers: Urinary tract infection type: acute cystitis Hematuria presence: with hematuria Qualified Code(s): N30.01 - Acute cystitis with hematuria - Discharge Information *PRESCRIPTION DRUG MONITORING PROGRAM REVIEWED*: No *COPY OF PRESCRIPTION DRUG MONITORING REPORT IN PATIENT RANJAN: Not Applicable Prescriptions: Cefuroxime [Ceftin] 250 mg PO BID #14 tablet Pantoprazole Sodium [Protonix] 40 mg PO DAILY 14 Days #14 tablet. Instructions: Dehydration, Adult, [id number], Irritable Bowel Syndrome, Adult, Urinary Tract Infection, Adult, [id number] Referrals: Jillian Curran, SEWING MACHINE OPERATOR ZIPPER [Primary Care Provider] - 2 Days Forms: ED Department Discharge Additional Instructions: Fill the prescription for Ceftin and Protonix at [facility] and take as directed. Drink plenty of fluids. Take your Zofran and Imodium as needed. Follow up with your primary physician in 2-3 days. Return to the ER as needed. Sepsis Event Note (ED) - Evaluation Sepsis Screening Result: No Definite Risk - Focused Exam Vital Signs: Vital Signs Temp Pulse Resp BP Pulse Ox 12/23/20 14:43 36.6 C 87 14 100/59 L 99 - My Orders Last 24 Hours: My Active Orders 12/23/20 15:12 Sodium Chloride 0.9% [Normal Saline] 1,000 ml IV .BOLUS 12/23/20 15:13 Sodium Chloride 0.9% [Saline Flush] 10 ml FLUSH ASDIRECTED PRN Saline Lock Insert [OM.PC] Routine 12/23/20 16:07 CULTURE URINE [RM] Stat - Assessment/Plan Last 24 Hours: My Active Orders 12/23/20 15:12 Sodium Chloride 0.9% [Normal Saline] 1,000 ml IV .BOLUS 12/23/20 15:13 Sodium Chloride 0.9% [Saline Flush] 10 ml FLUSH ASDIRECTED PRN Saline Lock Insert [OM.PC] Routine 12/23/20 16:07 CULTURE URINE [RM] Stat
[2020-12-23] MEDS ORDERED: Cefuroxime 250 MG Tab PO ONE (16:11)
[2020-12-23 20:14] VITALS: BP 154/87; PULSE 75
== END 2020-12-23 16:45 | disposition home or self-care (01) ==
LOC: FB.ED 14:11
DX: K58.0 Irritable bowel syndrome with diarrhea (principal); N30.01 Acute cystitis with hematuria; E86.0 Dehydration; E78.00 Pure hypercholesterolemia, unspecified; I10 Essential (primary) hypertension; K21.9 Gastro-esophageal reflux disease without esophagitis; E03.9 Hypothyroidism, unspecified; Z79.899 Other long term (current) drug therapy; Z88.5 Allergy status to narcotic agent; Z91.040 Latex allergy status; Z88.8 Allergy status to other drugs, medicaments and biological substances
CPT/HCPCS: 36415; 80053; 81001; 83690; 85025; 87086; 87088; 87186; 96374; 99284; C9113; J7030

== ENCOUNTER 2021-05-10 13:42 | Emergency (ER) | payer MEDICARE, BC ==
--- NOTE | 2021-05-10 14:31 | EDM.PDOC ---
ED HPI GENERAL MEDICAL PROBLEM - General Stated Complaint: Neuropathy Time Seen by Provider: 05/10/21 14:00 Source of Information: Reports: Patient - History of Present Illness INITIAL COMMENTS - FREE TEXT/NARRATIVE: 75-year-old lady came to emergency department because she needs a refill of her gabapentin. She has severe neuropathy in her feet and has been on gabapentin for several years. She has been trying to contact her primary care doctor but could not get the prescription refilled. Tomorrow is the first of the new year and her insurance changes. She states that she cannot afford her medication after today because she will have new insurance that does not pay for prescription drugs. I asked her how she will afford her prescription drugs, she has 4 pages of them, after her insurance changes and she simply states she does not know. She is upset and tearful. Denies all other acute complaints. Note that she is currently being treated for sinus infection with amoxicillin. Does not have fever, chills, cough, chest pain, shortness of breath, change in bowel or bladder habits. - Related Data Allergies Allergy/AdvReac Type Severity Reaction Status Date / Time codeine Allergy Swelling Verified 06/16/20 13:48 hydrocodone Allergy Cannot Verified 06/16/20 13:48 Remember latex Allergy Cannot Verified 06/16/20 13:48 Remember phenylephrine HCl Allergy Cannot Verified 06/16/20 13:48 [From Mydfrin] Remember triamcinolone acetonide Allergy Cannot Verified 06/16/20 13:48 [From Kenalog] Remember meperidine HCl [From Demerol] AdvReac Nausea and Verified 06/16/20 13:48 Vomiting Home Meds: Home Meds Carboxymethylcell/Hypromellose [GenTeal Moderate to Severe Gel Drops] 1 drop EYEBOTH ASDIRECTED PRN 08/21/14 [History] Cranberry Fruit Extract [Cranberry] 1,000 mg PO BEDTIME 08/21/14 [History] Hydrocortisone [Procto-Med Hc] 1 applic TOP BID PRN 06/08/17 [History] Levothyroxine [Synthroid] 25 mcg PO ACBREAKFAST 06/08/17 [History] cycloSPORINE [Restasis] 1 drop EYEBOTH BID PRN 06/09/17 [History] Mupirocin Calcium [Bactroban] 1 applic TOP TID PRN 06/22/17 [History] Gabapentin [Neurontin] 1,200 mg PO BEDTIME PRN 09/07/17 [History] .Probiotic Product 1 tab PO DAILY 02/01/19 [History] Amitriptyline [Elavil] 10 mg PO BEDTIME 02/01/19 [History] Azelastine [Astelin Nasal Soln] 2 sprays DANAY BID 02/01/19 [History] Desoximetasone [Desoximetasone 0.25%] 1 applic TOP BID 02/01/19 [History] Ipratropium [Atrovent 0.03% Nasal [place]] 2 sprays DANAY BID PRN 02/01/19 [History] Ketotifen [Ketotifen 0.025% Ophth Soln] 1 drop EYEBOTH ASDIRECTED PRN 02/01/19 [History] Montelukast [Singulair] 10 mg PO BEDTIME 02/01/19 [History] Pramoxine HCl/Benzyl Alcohol [Itch-X] 1 applic TOP ASDIRECTED PRN 02/01/19 [History] Tretinoin [Retin-A] 1 applic TOP BEDTIME 02/01/19 [History] Triamcinolone Acetonide [Kenalog 0.1% Crm] 1 applic TOP BID 02/01/19 [History] Wheat Dextrin [Benefiber] 1 tsp PO BID PRN 02/01/19 [History] Zolpidem Tartrate [Ambien] 2.5 mg PO BEDTIME PRN 02/01/19 [History] amLODIPine [Norvasc] 2.5 mg PO BEDTIME 02/01/19 [History] guaiFENesin [Mucinex] 400 mg PO BID PRN 02/01/19 [History] Docusate Sodium [Colace] 100 mg PO BID PRN 05/17/19 [History] Acetaminophen [Tylenol Arthritis] 1,300 mg PO BID 06/16/20 [History] Acyclovir [Zovirax] 400 mg PO DAILY PRN 06/16/20 [History] Dicyclomine [Bentyl] 10 mg PO BID 06/16/20 [History] Doxycycline [Doxycycline Hyclate] 100 mg PO BID 06/16/20 [History] Sucralfate [Carafate] 1 gm PO BID 06/16/20 [History] Sulfamethoxazole/Trimethoprim [Sulfamethoxazole-Tmp Ds Tablet] 1 each PO BID 10 Days #20 tablet 06/16/20 [Rx] Famotidine 20 mg PO BID 11/12/20 [History] Loperamide [Imodium] 2 mg PO BID 11/12/20 [History] Lysine HCl [l-Lysine] 500 mg PO DAILY 11/12/20 [History] Ondansetron [Zofran ODT] 4 mg PO Q6H PRN #20 tab.dis 11/12/20 [Rx] hydrOXYzine pamoate [Vistaril] 25 mg PO Q8H PRN 11/12/20 [History] Cefuroxime [Ceftin] 250 mg PO BID #14 tablet 12/23/20 [Rx] Pantoprazole Sodium [Protonix] 40 mg PO DAILY 14 Days #14 tablet.dr 12/23/20 [Rx] Past Medical History - Past Health History Medical/Surgical History: Denies Medical/Surgical History HEENT History: Reports: Allergic Rhinitis, Glaucoma, Impaired Vision, Sinusitis, Other (See Below) Other HEENT History: KERATOCONJUNCTIVITIS SICCA BOTH EYES, ALLERGIC CONJUCTIVITIS Cardiovascular History: Reports: High Cholesterol, Hypertension Respiratory History: Reports: Bronchitis, Recurrent, Pneumonia, Recurrent Other Respiratory History: RESPIRATORY ALLERGIES Gastrointestinal History: Reports: Cholelithiasis, Chronic Constipation, GERD, Hiatal Hernia, Inflammatory Bowel Disease Other Gastrointestinal History: states that she has recurrent irritation to her anal area if she has diarrhea or if she is constipated. Genitourinary History: Reports: UTI, Recurrent CONTACT LENS CURVE GRINDER History: Reports: Other CONTACT LENS CURVE GRINDER History: G0 Musculoskeletal History: Reports: Back Pain, Chronic, Fracture, Neck Pain, Chronic, Osteoarthritis Other Musculoskeletal History: hx fx L ankle x 2, fx L ribs, facial fx, fx back Neurological History: Reports: Concussion, Migraines, Vertigo, Other (See Below) Other Neuro History: Brain tumor-benign Endocrine/Metabolic History: Reports: Hypothyroidism Hematologic History: Reports: Anesthesia Reaction, Blood Transfusion(s) Immunologic History: Reports: Other (See Below) Other Immunologic History: CHRONIC SINUS INFECTIONS Dermatologic History: Reports: Other (See Below) Other Dermatologic History: VARIOUS RASHES - Infectious Disease History Infectious Disease History: Reports: Chicken Pox, Measles, Mumps, Shingles - Past Surgical History Head Surgeries/Procedures: Reports: None HEENT Surgical History: Reports: Naso-Sinus Surgery, Tonsillectomy Other HEENT Surgeries/Procedures: nose surgery, face surgery GI Surgical History: Reports: Appendectomy, Cholecystectomy, Colonoscopy, EGD, Hernia Repair/Other, Denae Fundoplication, Other (See Below) Other GI Surgeries/Procedures: hiatal hernia repair Female Surgical History: Reports: None Neurological Surgical History: Reports: Spinal Fusion Other Neurological Surgeries/Procedures: benign brain tumor removed Musculoskeletal Surgical History: Reports: Other (See Below) Other Musculoskeletal Surgeries/Procedures:: spinal fusion, 4 toe surgeries, R hand surgery Social & Family History - Family History Family Medical History: No Pertinent Family History - Caffeine Use Caffeine Use: Reports: None - Living Situation & Occupation Occupation: Retired ED ROS GENERAL - Review of Systems Review Of Systems: See Below Constitutional: Reports: No Symptoms HEENT: Reports: No Symptoms Respiratory: Reports: No Symptoms Cardiovascular: Reports: No Symptoms Endocrine: Reports: No Symptoms GI/Abdominal: Reports: No Symptoms : Reports: No Symptoms Musculoskeletal: Reports: No Symptoms Skin: Reports: No Symptoms Neurological: Reports: Other (Bilateral lower extremity neuropathy) Psychiatric: Reports: Mood Lability Hematologic/Lymphatic: Reports: No Symptoms Immunologic: Reports: No Symptoms ED EXAM, GENERAL - Physical Exam Exam: See Below Exam Limited By: No Limitations General Appearance: Anxious Head: Atraumatic, Normocephalic Respiratory/Chest: No Respiratory Distress, Lungs Clear Cardiovascular: Regular Rate, Rhythm GI/Abdominal: Normal Bowel Sounds, Soft, Non-Tender Back Exam: Normal Inspection Extremities: Normal Inspection Neurological: Alert, Oriented, CN II-XII Intact, Normal Cognition, Normal Gait Psychiatric: Anxious, Tearful Skin Exam: Warm, Dry Departure - Departure Time of Disposition: 14:30 Disposition: Home, Self-Care 01 Condition: Good Clinical Impression: Neuropathy - Discharge Information *PRESCRIPTION DRUG MONITORING PROGRAM REVIEWED*: Not Applicable *COPY OF PRESCRIPTION DRUG MONITORING REPORT IN PATIENT RANJAN: Not Applicable Additional Instructions: Refill medication as requested. I spoke with the pharmacy and the authorized refill.
[2021-05-10 18:07] VITALS: BP 132/74; PULSE 80
== END 2021-05-10 14:35 | disposition home or self-care (01) ==
LOC: FB.ED 13:42
DX: G62.9 Polyneuropathy, unspecified (principal); I10 Essential (primary) hypertension; Z88.5 Allergy status to narcotic agent; Z88.8 Allergy status to other drugs, medicaments and biological substances; Z79.899 Other long term (current) drug therapy
CPT/HCPCS: 99283

== ENCOUNTER 2021-06-07 20:20 | Emergency (ER) | payer MEDICARE, BC ==
[2021-06-07] MEDS ORDERED: Ondansetron 4 MG Tab.DIS PO ONE (21:09)
[2021-06-07] MEDS ORDERED: hydrOXYzine HCl 50 MG/ML SDV IM ONE (21:09)
[2021-06-08 02:36] VITALS: BP 201/93; PULSE 84
== END 2021-06-07 23:45 | disposition home or self-care (01) ==
LOC: FB.ED 20:20
DX: K58.9 Irritable bowel syndrome, unspecified (principal); I10 Essential (primary) hypertension; K21.9 Gastro-esophageal reflux disease without esophagitis; E03.9 Hypothyroidism, unspecified; Z77.22 Contact with and (suspected) exposure to environmental tobacco smoke (acute) (chronic); Z88.5 Allergy status to narcotic agent; Z91.040 Latex allergy status; Z88.8 Allergy status to other drugs, medicaments and biological substances; Z79.899 Other long term (current) drug therapy
CPT/HCPCS: 96372; 99283; J3410; Q0162

== ENCOUNTER 2021-11-02 20:57 | Emergency (ER) | payer MEDICARE, BC ==
[2021-11-02] MEDS ORDERED: hydrOXYzine HCl 50 MG/ML SDV IM ONE (21:29)
[2021-11-02] MEDS ORDERED: Ketorolac 30 MG/ML SDV IM ONE (21:29)
[2021-11-02 23:51] VITALS: BP 115/79; PULSE 82
== END 2021-11-02 21:50 | disposition home or self-care (01) ==
LOC: FB.ED 20:57
DX: K58.0 Irritable bowel syndrome with diarrhea (principal); E78.00 Pure hypercholesterolemia, unspecified; I10 Essential (primary) hypertension; E03.9 Hypothyroidism, unspecified; Z88.5 Allergy status to narcotic agent; Z91.040 Latex allergy status; Z88.8 Allergy status to other drugs, medicaments and biological substances; Z79.899 Other long term (current) drug therapy
CPT/HCPCS: 96372; 99282; 99283; J1885; J3410

== ENCOUNTER 2021-11-30 14:10 | Emergency (ER) | payer MEDICARE, BC ==
[2021-11-30] MEDS ORDERED: Lactated Ringers 1,000 ML IV ONE (14:33)
[2021-11-30] MEDS ORDERED: Ondansetron 4 MG/2 ML SDV IVPUSH ONE (14:34)
[2021-11-30] MEDS ORDERED: Ketorolac 30 MG/ML SDV IVPUSH ONE (14:35)
[2021-11-30] MEDS ORDERED: Hyoscyamine 0.125 MG/ML Bottle PO STA (14:40)
[2021-11-30 14:53] LABS: ESTIMATED GFR 90 mL/min (>60)
[2021-11-30] MEDS ORDERED: Hyoscyamine 0.125 MG Tab.SL SL ONE (15:35)
[2021-11-30 16:47] VITALS: BP 154/71; PULSE 67
== END 2021-11-30 16:44 | disposition home or self-care (01) ==
LOC: FB.ED 14:10
DX: R10.84 Generalized abdominal pain (principal); Z88.5 Allergy status to narcotic agent; Z91.048 Other nonmedicinal substance allergy status; Z91.040 Latex allergy status; Z88.4 Allergy status to anesthetic agent; Z88.8 Allergy status to other drugs, medicaments and biological substances; Z79.899 Other long term (current) drug therapy; Z90.49 Acquired absence of other specified parts of digestive tract
CPT/HCPCS: 36415; 80048; 81001; 85027; 96361; 96374; 96375; 99284; A9270; J1885; J2405; J7120; 99282

== ENCOUNTER 2021-12-08 13:48 | Emergency (ER) | payer MEDICARE, BC ==
[2021-12-08] MEDS ORDERED: Sodium Phosphate,Monobasic/Sodium Phosphate,Dibasic Enema 133 ML Bottle RECTAL ONE ×2 (14:11→15:00)
[2021-12-08 14:12] VITALS: BP 106/55; PULSE 82
== END 2021-12-08 16:05 | disposition home or self-care (01) ==
LOC: FB.ED 13:48
DX: K58.0 Irritable bowel syndrome with diarrhea (principal); K59.00 Constipation, unspecified; E78.00 Pure hypercholesterolemia, unspecified; I10 Essential (primary) hypertension; Z88.8 Allergy status to other drugs, medicaments and biological substances; Z88.5 Allergy status to narcotic agent; Z91.040 Latex allergy status; Z88.4 Allergy status to anesthetic agent; Z79.899 Other long term (current) drug therapy
CPT/HCPCS: 99283

== ENCOUNTER 2022-09-12 16:45 | Emergency (ER) | payer MEDICARE, BC ==
[2022-09-12 17:04] VITALS: BP 132/70; PULSE 80
== END 2022-09-12 17:30 | disposition home or self-care (01) ==
LOC: FB.ED 16:45
DX: J01.90 Acute sinusitis, unspecified (principal); I10 Essential (primary) hypertension; K21.9 Gastro-esophageal reflux disease without esophagitis; M19.90 Unspecified osteoarthritis, unspecified site; E03.9 Hypothyroidism, unspecified; Z88.8 Allergy status to other drugs, medicaments and biological substances; Z88.5 Allergy status to narcotic agent; Z91.040 Latex allergy status; Z88.4 Allergy status to anesthetic agent; Z91.048 Other nonmedicinal substance allergy status; Z79.899 Other long term (current) drug therapy
CPT/HCPCS: 99282; 99283

== ENCOUNTER 2022-11-02 19:47 | Emergency (ER) | payer MEDICARE, BC ==
[2022-11-02] MEDS ORDERED: Sodium Chloride 0.9% 10 ML Syringe FLUSH PRN (20:40)
[2022-11-02] MEDS ORDERED: Ondansetron 4 MG/2 ML SDV IVPUSH ONE (20:41)
[2022-11-02] MEDS ORDERED: Ketorolac 30 MG/ML SDV IVPUSH ONE (20:41)
[2022-11-02] MEDS ORDERED: Sodium Chloride 0.9% 1,000 ML IV SCH (20:45)
[2022-11-02 20:57] LABS: BASOPHILS PERCENT AUTO 0.4 % (0.2-1.5); EOSINOPHILS PERCENT AUTO 0.5 % (0.6-8.1); HEMATOCRIT 38.1 % (34.2-48.2); LYMPHOCYTES ABSOLUTE AUTO 0.9 x10-3/uL (1.0-4.4); LYMPHOCYTES PERCENT AUTO 16.2 % (18.4-52.1); MEAN CORPUSCULAR HEMOGLOBIN 30.8 pg (23.9-33.9); MEAN CORPUSCULAR HGB CONC 34.1 g/dL (31.9-34.8); MEAN CORPUSCULAR VOLUME 90.6 fL (76.7-100.5); MONOCYTES ABSOLUTE AUTO 0.6 x10-3/uL (0.3-1.0); MONOCYTES PERCENT AUTO 11.6 % (4.4-15.7); NEUTROPHILS ABSOLUTE AUTO 3.8 x10-3/uL (1.5-6.3); NEUTROPHILS PERCENT AUTO 71.3 % (30.8-76.2); PLATELET COUNT,PLT 163 x10(3)uL (151-488); RED BLOOD CELL COUNT 4.21 x10(6)uL (3.60-5.20); RED CELL DISTRIBUTION WIDTH 12.8 % (12.3-16.5); WHITE BLOOD CELL COUNT,WBC 5.3 x10-3/uL (3.0-10.3)
[2022-11-02 20:59] LABS: BLOOD UREA NITROGEN,BUN 10 mg/dL (7-18); BUN/CREATININE RATIO 14.3 (9-20); CALCIUM 9.5 mg/dL (8.6-10.2); CARBON DIOXIDE,CO2 28 mmol/L (21-32); CHLORIDE,CL 102 mmol/L (100-110); CREATININE 0.7 mg/dL (0.55-1.02); ESTIMATED GFR 90 mL/min (>60); GLUCOSE RANDOM 118 mg/dL (80-116); SODIUM,NA 140 mmol/L (135-145)
[2022-11-02 21:00] VITALS: BP 153/89; PULSE 71
[2022-11-02 21:06] LABS: A/G RATIO 1.2; ALANINE AMINOTRANSFERASE,ALT 22 U/L (12-36); ALBUMIN 3.9 g/dL (3.2-4.6); ALKALINE PHOSPHATASE 84 IU/L (56-112); AMYLASE 28 U/L (25-115); ASPARTATE AMNIOTRANSFERASE,AST 21 IU/L (5-25); BILIRUBIN TOTAL 0.7 mg/dL (0.1-1.3); PROTEIN TOTAL,TP 7.1 g/dL (6.0-8.0)
[2022-11-02] MEDS ORDERED: Iopamidol 755 Mg/ML 100 ML Bottle IV ONE (21:14)
[2022-11-02 22:28] LABS: BILIRUBIN,URINE NEGATIVE (NEGATIVE); GLUCOSE,URINE NORMAL (NORMAL); KETONES,URINE 15 mg/dL (NEGATIVE); LEUKOCYTE ESTERASE,URINE NEGATIVE (NEGATIVE); NITRITE,URINE NEGATIVE (NEGATIVE); OCCULT BLOOD,URINE NEGATIVE (NEGATIVE); PROTEIN,URINE NEGATIVE (NEGATIVE); UROBILINOGEN,URINE NORMAL (NEGATIVE)
[2022-11-02 22:31] LABS: APPEARANCE,URINE CLEAR (CLEAR); BACTERIA,URINE RARE (NS); COLOR,URINE YELLOW (YELLOW); RBC,URINE 0-5 (0-5); SQUAMOUS EPITHELIAL CELLS,UR RARE (NS,R,O); WBC,URINE 0-5 (0-5)
== END 2022-11-02 22:51 | disposition home or self-care (01) ==
LOC: FB.ED 19:47
DX: K29.70 Gastritis, unspecified, without bleeding (principal); K58.9 Irritable bowel syndrome, unspecified; E78.00 Pure hypercholesterolemia, unspecified; I10 Essential (primary) hypertension; K21.9 Gastro-esophageal reflux disease without esophagitis; E03.9 Hypothyroidism, unspecified; Z88.5 Allergy status to narcotic agent; Z91.040 Latex allergy status; Z88.4 Allergy status to anesthetic agent; Z88.8 Allergy status to other drugs, medicaments and biological substances; Z79.899 Other long term (current) drug therapy
CPT/HCPCS: 36415; 74177; 80053; 81001; 82150; 83690; 85025; 96361; 96374; 96375; 99284; J1885; J2405; J7030; Q9967

== ENCOUNTER 2022-11-04 18:16 | Emergency (ER) | payer MEDICARE, BC ==
[2022-11-04] MEDS: Ondansetron 4 MG/2 ML SDV IVPUSH ONE (19:27)
[2022-11-04] MEDS: Ketorolac 30 MG/ML SDV IVPUSH ONE (19:28)
[2022-11-04] MEDS: Sodium Chloride 0.9% 1,000 ML IV SCH (19:28)
[2022-11-04 19:30] LABS: BASOPHILS PERCENT AUTO 0.4 % (0.2-1.5); EOSINOPHILS PERCENT AUTO 0.5 % (0.6-8.1); HEMATOCRIT 41.4 % (34.2-48.2); HEMOGLOBIN 14.2 g/dL (11.4-15.5); LYMPHOCYTES ABSOLUTE AUTO 0.9 x10-3/uL (1.0-4.4); LYMPHOCYTES PERCENT AUTO 14.7 % (18.4-52.1); MEAN CORPUSCULAR HGB CONC 34.2 g/dL (31.9-34.8); MEAN CORPUSCULAR VOLUME 90.7 fL (76.7-100.5); MEAN PLATELET VOLUME 9.1 fL (7.1-12.4); MONOCYTES ABSOLUTE AUTO 0.6 x10-3/uL (0.3-1.0); NEUTROPHILS ABSOLUTE AUTO 4.8 x10-3/uL (1.5-6.3); NEUTROPHILS PERCENT AUTO 75.4 % (30.8-76.2); PLATELET COUNT,PLT 192 x10(3)uL (151-488); RED BLOOD CELL COUNT 4.57 x10(6)uL (3.60-5.20); RED CELL DISTRIBUTION WIDTH 13.2 % (12.3-16.5); WHITE BLOOD CELL COUNT,WBC 6.4 x10-3/uL (3.0-10.3)
[2022-11-04 19:32] LABS: BLOOD UREA NITROGEN,BUN 18 mg/dL (7-18); CARBON DIOXIDE,CO2 28 mmol/L (21-32); CHLORIDE,CL 101 mmol/L (100-110); CREATININE 0.9 mg/dL (0.55-1.02); EST CRCL DRUG DOSING (CG) 43.41 mL/min; ESTIMATED GFR 66 mL/min (>60); GLUCOSE RANDOM 94 mg/dL (80-116); POTASSIUM,K 3.8 mmol/L (3.5-5.3); SODIUM,NA 139 mmol/L (135-145)
[2022-11-04 21:19] VITALS: BP 166/81; PULSE 79
== END 2022-11-04 20:48 | disposition home or self-care (01) ==
LOC: FB.ED 18:16
DX: K58.9 Irritable bowel syndrome, unspecified (principal); E78.00 Pure hypercholesterolemia, unspecified; I10 Essential (primary) hypertension; K21.9 Gastro-esophageal reflux disease without esophagitis; E03.9 Hypothyroidism, unspecified; Z79.899 Other long term (current) drug therapy; Z91.048 Other nonmedicinal substance allergy status; Z88.8 Allergy status to other drugs, medicaments and biological substances; Z91.040 Latex allergy status; Z88.5 Allergy status to narcotic agent
CPT/HCPCS: 36415; 80048; 85025; 96361; 96374; 96375; 99284; J1885; J2405; J7030

== ENCOUNTER 2023-02-02 17:53 | Emergency (ER) | payer MEDICARE, BC ==
[2023-02-02] MEDS ORDERED: diphenhydrAMINE 50 MG/ML SDV IM ONE (18:03)
[2023-02-02] MEDS ORDERED: methylPREDNISolone Sodium Succinate 125 MG/2 ML SDV IM ONE (18:03)
[2023-02-02] MEDS ORDERED: diphenhydrAMINE 50 MG/ML SDV IVPUSH ONE (18:15)
[2023-02-02] MEDS ORDERED: methylPREDNISolone Sodium Succinate 125 MG/2 ML SDV IVPUSH ONE (18:16)
[2023-02-02 19:06] VITALS: BP 164/71; PULSE 67
== END 2023-02-02 19:06 | disposition home or self-care (01) ==
LOC: FB.ED 17:53
DX: T63.441A Toxic effect of venom of bees, accidental (unintentional), initial encounter (principal); I10 Essential (primary) hypertension; K21.9 Gastro-esophageal reflux disease without esophagitis; E78.00 Pure hypercholesterolemia, unspecified; Z79.899 Other long term (current) drug therapy; Z88.2 Allergy status to sulfonamides; Z88.5 Allergy status to narcotic agent; Z88.6 Allergy status to analgesic agent; Z88.8 Allergy status to other drugs, medicaments and biological substances; Z91.040 Latex allergy status; Z91.09 Other allergy status, other than to drugs and biological substances; Z91.048 Other nonmedicinal substance allergy status; Z91.030 Bee allergy status
CPT/HCPCS: 96374; 96375; 99283; J1200; J2930

== ENCOUNTER 2023-02-28 13:15 | Emergency (ER) | payer MEDICARE, BC ==
[2023-02-28] MEDS ORDERED: Ondansetron 4 MG Tab.DIS PO ONE (13:16)
[2023-02-28 13:47] VITALS: BP 128/96; PULSE 110
[2023-02-28] MEDS ORDERED: Ketorolac 30 MG/ML SDV IVPUSH ONE (14:05)
[2023-02-28] MEDS ORDERED: hydrOXYzine HCl 50 MG/ML SDV IM ONE (14:05)
[2023-02-28] MEDS ORDERED: Sodium Chloride 0.9% 1,000 ML IV ONE (14:05)
[2023-02-28] MEDS ORDERED: Sodium Chloride 0.9% 10 ML Syringe FLUSH PRN (14:05)
[2023-02-28] MEDS ORDERED: Ondansetron 4 MG/2 ML SDV IVPUSH ONE (14:06)
[2023-02-28 14:29] LABS: BASOPHILS ABSOLUTE AUTO 0.1 x10-3/uL (0.0-0.1); BASOPHILS PERCENT AUTO 0.6 % (0.2-1.5); EOSINOPHILS PERCENT AUTO 0.4 % (0.6-8.1); HEMATOCRIT 42.3 % (34.2-48.2); HEMOGLOBIN 14.3 g/dL (11.4-15.5); LYMPHOCYTES ABSOLUTE AUTO 1.1 x10-3/uL (1.0-4.4); LYMPHOCYTES PERCENT AUTO 13.3 % (18.4-52.1); MEAN CORPUSCULAR HEMOGLOBIN 31.5 pg (23.9-33.9); MEAN CORPUSCULAR HGB CONC 33.8 g/dL (31.9-34.8); MEAN CORPUSCULAR VOLUME 93.3 fL (76.7-100.5); MONOCYTES ABSOLUTE AUTO 0.7 x10-3/uL (0.3-1.0); MONOCYTES PERCENT AUTO 8.2 % (4.4-15.7); NEUTROPHILS ABSOLUTE AUTO 6.6 x10-3/uL (1.5-6.3); NEUTROPHILS PERCENT AUTO 77.5 % (30.8-76.2); PLATELET COUNT,PLT 232 x10(3)uL (151-488); RED BLOOD CELL COUNT 4.54 x10(6)uL (3.60-5.20); RED CELL DISTRIBUTION WIDTH 13.2 % (12.3-16.5); WHITE BLOOD CELL COUNT,WBC 8.5 x10-3/uL (3.0-10.3)
[2023-02-28 14:33] LABS: BLOOD UREA NITROGEN,BUN 10 mg/dL (7-18); BUN/CREATININE RATIO 14.3 (9-20); CALCIUM 9.9 mg/dL (8.6-10.2); CARBON DIOXIDE,CO2 29 mmol/L (21-32); CHLORIDE,CL 102 mmol/L (100-110); CREATININE 0.7 mg/dL (0.55-1.02); EST CRCL DRUG DOSING (CG) 55.81 mL/min; ESTIMATED GFR 90 mL/min (>60); GLUCOSE RANDOM 127 mg/dL (80-116); POTASSIUM,K 3.4 mmol/L (3.5-5.3); SODIUM,NA 140 mmol/L (135-145)
[2023-02-28 14:34] LABS: LIPASE 26 U/L (16-77)
[2023-02-28 14:36] LABS: C-REACTIVE PROTEIN < 0.05 mg/dL (<0.33)
[2023-02-28 14:39] LABS: A/G RATIO 1.1; ALANINE AMINOTRANSFERASE,ALT 33 U/L (12-36); ALBUMIN 4.2 g/dL (3.2-4.6); ALKALINE PHOSPHATASE 94 IU/L (56-112); ASPARTATE AMNIOTRANSFERASE,AST 22 IU/L (5-25); BILIRUBIN TOTAL 0.9 mg/dL (0.1-1.3)
== END 2023-02-28 16:00 | disposition home or self-care (01) ==
LOC: FB.ED 13:15
DX: K58.0 Irritable bowel syndrome with diarrhea (principal); E86.0 Dehydration; I10 Essential (primary) hypertension; E78.00 Pure hypercholesterolemia, unspecified; E03.9 Hypothyroidism, unspecified; Z79.899 Other long term (current) drug therapy; Z88.5 Allergy status to narcotic agent; Z88.6 Allergy status to analgesic agent; Z91.040 Latex allergy status; Z88.4 Allergy status to anesthetic agent; Z91.030 Bee allergy status; Z91.048 Other nonmedicinal substance allergy status
CPT/HCPCS: 80053; 83690; 83735; 85025; 86140; 87230; 96361; 96372; 96374; 96375; 99284; J1885; J2405; J3410; J3490; J7030; Q0162

== ENCOUNTER 2023-03-08 20:45 | Emergency (ER) | payer MEDICARE, BC ==
[2023-03-08] MEDS ORDERED: Sodium Phosphate,Monobasic/Sodium Phosphate,Dibasic Enema 133 ML Bottle RECTAL ONE (21:07)
[2023-03-08] MEDS ORDERED: Mineral Oil 133 ML BOTTLE RECTAL ONE (21:33)
[2023-03-09] MEDS ORDERED: Ondansetron 8 MG Tab.DIS PO ONE (00:12)
[2023-03-09] MEDS ORDERED: Ketorolac 30 MG/ML SDV IM ONE (00:12)
[2023-03-09] MEDS ORDERED: Magnesium Hydroxide 400 MG/5 ML Susp 30 ML Cup PO ONE (01:09)
[2023-03-09 06:37] VITALS: BP 145/80; PULSE 90
== END 2023-03-09 01:33 | disposition home or self-care (01) ==
LOC: FB.ED 20:45
DX: K56.41 Fecal impaction (principal); K59.00 Constipation, unspecified; Z88.5 Allergy status to narcotic agent; Z88.8 Allergy status to other drugs, medicaments and biological substances; Z88.6 Allergy status to analgesic agent; Z91.030 Bee allergy status; Z91.040 Latex allergy status
CPT/HCPCS: 96372; 99283; A9270-GY; J1885

== ENCOUNTER 2023-05-10 13:01 | Emergency (ER) | payer MEDICARE, BC ==
[2023-05-10] MEDS ORDERED: Azithromycin 250 MG Tab PO ONE (13:02)
[2023-05-10] MEDS ORDERED: Dexamethasone 2 MG Tab PO ONE (13:29)
[2023-05-10 20:28] VITALS: BP 121/79; PULSE 106
== END 2023-05-10 13:55 | disposition home or self-care (01) ==
LOC: FB.ED 13:01
DX: J01.91 Acute recurrent sinusitis, unspecified (principal); J04.0 Acute laryngitis; I10 Essential (primary) hypertension; E78.00 Pure hypercholesterolemia, unspecified; E03.9 Hypothyroidism, unspecified; Z90.49 Acquired absence of other specified parts of digestive tract; Z79.899 Other long term (current) drug therapy; Z88.8 Allergy status to other drugs, medicaments and biological substances; Z88.0 Allergy status to penicillin; Z88.5 Allergy status to narcotic agent; Z88.6 Allergy status to analgesic agent; Z91.030 Bee allergy status; Z91.048 Other nonmedicinal substance allergy status; Z91.018 Allergy to other foods; Z88.1 Allergy status to other antibiotic agents
CPT/HCPCS: 99283; A9270; J8540

== ENCOUNTER 2023-06-03 13:31 | Emergency (ER) | payer MEDICARE, BC ==
[2023-06-03] MEDS ORDERED: Sodium Chloride 0.9% 10 ML Syringe FLUSH PRN (13:57)
[2023-06-03] MEDS: Sodium Chloride 0.9% 1,000 ML IV SCH (14:08)
[2023-06-03] MEDS: Ondansetron 4 MG/2 ML SDV IVPUSH ONE (14:08)
[2023-06-03 14:25] LABS: BASOPHILS PERCENT AUTO 0.3 % (0.2-1.5); HEMATOCRIT 37.9 % (34.2-48.2); HEMOGLOBIN 13.3 g/dL (11.4-15.5); LYMPHOCYTES ABSOLUTE AUTO 0.6 x10-3/uL (1.0-4.4); LYMPHOCYTES PERCENT AUTO 8.5 % (18.4-52.1); MEAN CORPUSCULAR HEMOGLOBIN 32.1 pg (23.9-33.9); MEAN CORPUSCULAR VOLUME 91.7 fL (76.7-100.5); MEAN PLATELET VOLUME 9.2 fL (7.1-12.4); MONOCYTES ABSOLUTE AUTO 0.5 x10-3/uL (0.3-1.0); MONOCYTES PERCENT AUTO 7.5 % (4.4-15.7); NEUTROPHILS ABSOLUTE AUTO 6.1 x10-3/uL (1.5-6.3); NEUTROPHILS PERCENT AUTO 83.7 % (30.8-76.2); PLATELET COUNT,PLT 168 x10(3)uL (151-488); RED BLOOD CELL COUNT 4.13 x10(6)uL (3.60-5.20); RED CELL DISTRIBUTION WIDTH 13.4 % (12.3-16.5); WHITE BLOOD CELL COUNT,WBC 7.3 x10-3/uL (3.0-10.3)
[2023-06-03 14:36] LABS: A/G RATIO 1.1; ALANINE AMINOTRANSFERASE,ALT 31 U/L (12-36); ALBUMIN 3.7 g/dL (3.2-4.6); ALKALINE PHOSPHATASE 92 IU/L (56-112); ASPARTATE AMNIOTRANSFERASE,AST 26 IU/L (5-25); BILIRUBIN TOTAL 0.9 mg/dL (0.1-1.3); BLOOD UREA NITROGEN,BUN 17 mg/dL (7-18); BUN/CREATININE RATIO 21.3 (9-20); CALCIUM 9.3 mg/dL (8.6-10.2); CARBON DIOXIDE,CO2 27 mmol/L (21-32); CHLORIDE,CL 100 mmol/L (100-110); CREATININE 0.8 mg/dL (0.55-1.02); EST CRCL DRUG DOSING (CG) 47.27 mL/min; ESTIMATED GFR 76 mL/min (>60); GLUCOSE RANDOM 118 mg/dL (80-116); PROTEIN TOTAL,TP 7.2 g/dL (6.0-8.0); SODIUM,NA 139 mmol/L (135-145)
[2023-06-03 14:41] LABS: POTASSIUM,K 2.8 mmol/L (3.5-5.3)
[2023-06-03] MEDS: Potassium Chloride 20 MEQ Tab.ER PO ONE (15:15)
[2023-06-03 16:31] VITALS: BP 173/83; PULSE 102
== END 2023-06-03 16:10 | disposition home or self-care (01) ==
LOC: FB.ED 13:31
DX: U07.1 COVID-19 (principal); E86.0 Dehydration; E87.6 Hypokalemia; E03.9 Hypothyroidism, unspecified; Z88.8 Allergy status to other drugs, medicaments and biological substances; Z86.16 Personal history of COVID-19; Z91.048 Other nonmedicinal substance allergy status; Z88.5 Allergy status to narcotic agent; Z91.040 Latex allergy status; Z91.030 Bee allergy status; Z79.2 Long term (current) use of antibiotics; Z79.899 Other long term (current) drug therapy
CPT/HCPCS: 36415; 71045; 80053; 85025; 96361; 96374; 99283; 99285-25; A9270-GY; J2405; J7030

== ENCOUNTER 2023-08-24 23:06 | Emergency (ER) | payer MEDICARE, BC ==
[2023-08-24] MEDS: Sodium Phosphate,Monobasic/Sodium Phosphate,Dibasic Enema 133 ML Bottle RECTAL ONE (23:30)
[2023-08-25 00:16] VITALS: BP 152/90; PULSE 70
== END 2023-08-25 | disposition home or self-care (01) ==
LOC: FB.ED 23:06
DX: K59.00 Constipation, unspecified (principal); I10 Essential (primary) hypertension; Z88.5 Allergy status to narcotic agent; Z91.040 Latex allergy status; Z91.048 Other nonmedicinal substance allergy status; Z88.8 Allergy status to other drugs, medicaments and biological substances; Z79.899 Other long term (current) drug therapy; Z86.16 Personal history of COVID-19; Z90.49 Acquired absence of other specified parts of digestive tract
CPT/HCPCS: 99283

== ENCOUNTER 2023-09-16 21:45 | Emergency (ER) | payer MEDICARE, BC ==
[2023-09-16] MEDS: Sodium Chloride 0.9% 1,000 ML IV ONE (22:39)
[2023-09-16] MEDS: Ketorolac 30 MG/ML SDV IVPUSH ONE (22:40)
[2023-09-16] MEDS: Ondansetron 4 MG/2 ML SDV IVPUSH ONE (22:41)
[2023-09-16 22:42] LABS: BILIRUBIN,URINE SMALL (NEGATIVE); GLUCOSE,URINE NORMAL (NORMAL); KETONES,URINE 15 mg/dL (NEGATIVE); LEUKOCYTE ESTERASE,URINE SMALL (NEGATIVE); NITRITE,URINE NEGATIVE (NEGATIVE); OCCULT BLOOD,URINE TRACE (NEGATIVE); PROTEIN,URINE TRACE mg/dL (NEGATIVE); UROBILINOGEN,URINE 1 mg/dL (NEGATIVE)
[2023-09-16 22:44] LABS: HEMATOCRIT 40.6 % (34.2-48.2); HEMOGLOBIN 13.5 g/dL (11.4-15.5); MEAN CORPUSCULAR HEMOGLOBIN 31.1 pg (23.9-33.9); MEAN CORPUSCULAR HGB CONC 33.3 g/dL (31.9-34.8); MEAN CORPUSCULAR VOLUME 93.2 fL (76.7-100.5); MEAN PLATELET VOLUME 8.7 fL (7.1-12.4); PLATELET COUNT,PLT 200 x10(3)uL (151-488); RED BLOOD CELL COUNT 4.35 x10(6)uL (3.60-5.20); RED CELL DISTRIBUTION WIDTH 13.3 % (12.3-16.5); WHITE BLOOD CELL COUNT,WBC 6.8 x10-3/uL (3.0-10.3)
[2023-09-16 22:52] LABS: A/G RATIO 1.1; ALANINE AMINOTRANSFERASE,ALT 30 U/L (12-36); ALKALINE PHOSPHATASE 98 IU/L (56-112); ASPARTATE AMNIOTRANSFERASE,AST 28 IU/L (5-25); BILIRUBIN TOTAL 0.8 mg/dL (0.1-1.3); BLOOD UREA NITROGEN,BUN 13 mg/dL (7-18); BUN/CREATININE RATIO 16.3 (9-20); CALCIUM 9.4 mg/dL (8.6-10.2); CARBON DIOXIDE,CO2 29 mmol/L (21-32); CHLORIDE,CL 102 mmol/L (100-110); CREATININE 0.8 mg/dL (0.55-1.02); ESTIMATED GFR 76 mL/min (>60); GLUCOSE RANDOM 114 mg/dL (80-116); POTASSIUM,K 3.9 mmol/L (3.5-5.3); PROTEIN TOTAL,TP 7.5 g/dL (6.0-8.0); SODIUM,NA 140 mmol/L (135-145)
[2023-09-16 22:52] LABS: APPEARANCE,URINE SLIGHTLY CLOUDY (CLEAR); BACTERIA,URINE FEW (NS); COLOR,URINE YELLOW (YELLOW); RBC,URINE 0-5 (0-5); SQUAMOUS EPITHELIAL CELLS,UR FEW (NS,R,O); WBC,URINE 0-5 (0-5)
[2023-09-16 22:53] LABS: AMORPHOUS SEDIMENT,URINE FEW; MUCUS,URINE MODERATE (NS)
[2023-09-16 23:04] LABS: BAND PERCENT MAN 1 % (0-6); LYMPHOCYTES PERCENT MAN 24 % (13-37); MONOCYTES PERCENT MAN 7 % (4-12); SEG NEUTROPHILS PERCENT MAN 68 % (46-82)
[2023-09-16] MEDS: Iopamidol 755 Mg/ML 100 ML Bottle IV SCH (23:22)
[2023-09-16 23:35] LABS: CORONAVIRUS COVID-19 NAA NEGATIVE (NEGATIVE); INFLUENZA A NAA NEGATIVE (NEGATIVE); INFLUENZA B NAA NEGATIVE (NEGATIVE); RESPIRATORY SYNCYTIAL VIR NAA NEGATIVE (NEGATIVE)
[2023-09-17 01:11] VITALS: BP 161/73; PULSE 69
== END 2023-09-17 01:00 | disposition home or self-care (01) ==
LOC: FB.ED 21:45
DX: R10.9 Unspecified abdominal pain (principal); I10 Essential (primary) hypertension; E03.9 Hypothyroidism, unspecified; Z88.8 Allergy status to other drugs, medicaments and biological substances; Z88.5 Allergy status to narcotic agent; Z91.040 Latex allergy status; Z91.030 Bee allergy status; Z91.048 Other nonmedicinal substance allergy status; Z88.4 Allergy status to anesthetic agent; Z79.899 Other long term (current) drug therapy; Z86.19 Personal history of other infectious and parasitic diseases; Z86.16 Personal history of COVID-19
CPT/HCPCS: 0241U; 36415; 74177; 80053; 81001; 85025; 96361; 96374; 96375; 99283; 99284-25; J1885; J2405; J7030; Q9967

== ENCOUNTER 2023-09-19 15:18 | Inpatient (IN) | payer OTHER, MEDICARE, BC ==
[2023-09-19] MEDS: Sodium Chloride 0.9% 1,000 ML IV ONE ×2 (15:53→16:49)
[2023-09-19 15:58] LABS: HEMATOCRIT 41.1 % (34.2-48.2); HEMOGLOBIN 13.5 g/dL (11.4-15.5); MEAN CORPUSCULAR HEMOGLOBIN 30.6 pg (23.9-33.9); MEAN CORPUSCULAR HGB CONC 32.9 g/dL (31.9-34.8); MEAN PLATELET VOLUME 9.1 fL (7.1-12.4); PLATELET COUNT,PLT 222 x10(3)uL (151-488); RED BLOOD CELL COUNT 4.42 x10(6)uL (3.60-5.20); RED CELL DISTRIBUTION WIDTH 13.6 % (12.3-16.5); WHITE BLOOD CELL COUNT,WBC 13.1 x10-3/uL (3.0-10.3)
[2023-09-19 16:03] LABS: BLOOD UREA NITROGEN,BUN 40 mg/dL (7-18); BUN/CREATININE RATIO 26.7 (9-20); CALCIUM 9.6 mg/dL (8.6-10.2); CARBON DIOXIDE,CO2 26 mmol/L (21-32); CHLORIDE,CL 104 mmol/L (100-110); CREATININE 1.5 mg/dL (0.55-1.02); EST CRCL DRUG DOSING (CG) 25.41 mL/min; ESTIMATED GFR 36 mL/min (>60); GLUCOSE RANDOM 130 mg/dL (80-116); POTASSIUM,K 3.8 mmol/L (3.5-5.3); SODIUM,NA 144 mmol/L (135-145)
[2023-09-19 16:08] LABS: A/G RATIO 1.2; ALANINE AMINOTRANSFERASE,ALT 37 U/L (12-36); ALKALINE PHOSPHATASE 120 IU/L (56-112); ASPARTATE AMNIOTRANSFERASE,AST 36 IU/L (5-25); BILIRUBIN TOTAL 1.1 mg/dL (0.1-1.3); PROTEIN TOTAL,TP 7.3 g/dL (6.0-8.0)
[2023-09-19 16:13] LABS: EOSINOPHILS PERCENT MAN 2 % (0-5); LYMPHOCYTES PERCENT MAN 5 % (13-37); MONOCYTES PERCENT MAN 3 % (4-12); SEG NEUTROPHILS PERCENT MAN 90 % (46-82)
[2023-09-19] MEDS: Diphtheria,Pertussis(Acell),Tetanus Vaccine 0.5 ML Syringe IM ONE (16:42)
[2023-09-19] MEDS: Iopamidol 755 Mg/ML 100 ML Bottle IV SCH (19:53)
[2023-09-19 20:04] LABS: BILIRUBIN,URINE NEGATIVE (NEGATIVE); GLUCOSE,URINE NORMAL (NORMAL); KETONES,URINE 50 mg/dL (NEGATIVE); LEUKOCYTE ESTERASE,URINE SMALL (NEGATIVE); NITRITE,URINE NEGATIVE (NEGATIVE); OCCULT BLOOD,URINE NEGATIVE (NEGATIVE); PROTEIN,URINE NEGATIVE (NEGATIVE); UROBILINOGEN,URINE NORMAL (NEGATIVE)
[2023-09-19] MEDS: Morphine 2 MG/ML SYRINGE IVPUSH ONE (20:06)
[2023-09-19 20:26] LABS: APPEARANCE,URINE CLEAR (CLEAR); BACTERIA,URINE OCCASIONAL (NS); COLOR,URINE YELLOW (YELLOW); RBC,URINE 0-5 (0-5); SQUAMOUS EPITHELIAL CELLS,UR OCCASIONAL (NS,R,O); WBC,URINE 0-5 (0-5)
[2023-09-19] MEDS: hydrOXYzine HCl 25 MG Tab PO ONE (21:18)
[2023-09-19] MEDS: Ketorolac 30 MG/ML SDV IVPUSH ONE (21:18)
[2023-09-19] MEDS ORDERED: Ondansetron 4 MG/2 ML SDV IV PRN (23:11)
[2023-09-19] MEDS ORDERED: Zolpidem 5 MG Tab PO PRN (23:11)
[2023-09-19] MEDS ORDERED: Morphine 2 MG/ML SYRINGE IVPUSH PRN (23:11)
[2023-09-19] MEDS ORDERED: Magnesium Hydroxide 400 MG/5 ML Susp 30 ML Cup PO PRN (23:11)
[2023-09-19] MEDS ORDERED: Dextrose 5%-0.45% NaCl 1,000 ML IV SCH (23:15)
[2023-09-20] MEDS: Pantoprazole 40 MG Tab.CR PO SCH (06:29)
[2023-09-20] MEDS: Levothyroxine 50 MCG Tab PO SCH (06:29)
[2023-09-20 07:33] LABS: BASOPHILS PERCENT AUTO 0.7 % (0.2-1.5); EOSINOPHILS ABSOLUTE AUTO 0.1 x10-3/uL (0.0-0.8); EOSINOPHILS PERCENT AUTO 1.7 % (0.6-8.1); HEMATOCRIT 34.1 % (34.2-48.2); HEMOGLOBIN 11.1 g/dL (11.4-15.5); LYMPHOCYTES ABSOLUTE AUTO 1.1 x10-3/uL (1.0-4.4); LYMPHOCYTES PERCENT AUTO 19.5 % (18.4-52.1); MEAN CORPUSCULAR HEMOGLOBIN 30.8 pg (23.9-33.9); MEAN CORPUSCULAR HGB CONC 32.7 g/dL (31.9-34.8); MEAN CORPUSCULAR VOLUME 94.2 fL (76.7-100.5); MEAN PLATELET VOLUME 9.4 fL (7.1-12.4); MONOCYTES ABSOLUTE AUTO 0.7 x10-3/uL (0.3-1.0); MONOCYTES PERCENT AUTO 11.9 % (4.4-15.7); NEUTROPHILS ABSOLUTE AUTO 3.8 x10-3/uL (1.5-6.3); NEUTROPHILS PERCENT AUTO 66.2 % (30.8-76.2); PLATELET COUNT,PLT 163 x10(3)uL (151-488); RED BLOOD CELL COUNT 3.62 x10(6)uL (3.60-5.20); RED CELL DISTRIBUTION WIDTH 13.2 % (12.3-16.5); WHITE BLOOD CELL COUNT,WBC 5.8 x10-3/uL (3.0-10.3)
[2023-09-20 07:42] LABS: A/G RATIO 1.2; ALANINE AMINOTRANSFERASE,ALT 24 U/L (12-36); ALBUMIN 3.1 g/dL (3.2-4.6); ALKALINE PHOSPHATASE 88 IU/L (56-112); ASPARTATE AMNIOTRANSFERASE,AST 27 IU/L (5-25); BILIRUBIN TOTAL 0.7 mg/dL (0.1-1.3); BLOOD UREA NITROGEN,BUN 23 mg/dL (7-18); BUN/CREATININE RATIO 32.9 (9-20); CALCIUM 8.2 mg/dL (8.6-10.2); CARBON DIOXIDE,CO2 25 mmol/L (21-32); CHLORIDE,CL 110 mmol/L (100-110); CREATININE 0.7 mg/dL (0.55-1.02); EST CRCL DRUG DOSING (CG) 56.42 mL/min; ESTIMATED GFR 89 mL/min (>60); GLUCOSE RANDOM 91 mg/dL (80-116); POTASSIUM,K 3.6 mmol/L (3.5-5.3); PROTEIN TOTAL,TP 5.8 g/dL (6.0-8.0); SODIUM,NA 145 mmol/L (135-145)
[2023-09-20] MEDS: Acetaminophen 325 MG Tab PO SCH (12:30)
[2023-09-20] MEDS: Potassium Chloride 20 MEQ Tab.ER PO SCH ×2 (12:45→12:53)
[2023-09-20] MEDS: Lisinopril 10 MG Tab PO SCH ×2 (12:45→12:53)
[2023-09-20] MEDS: Docusate Sodium 100 MG Cap PO SCH ×2 (12:45→12:53)
[2023-09-20] MEDS: Enoxaparin 40 MG/0.4 ML Syringe SUBCUT SCH ×2 (12:45→12:52)
[2023-09-20] MEDS: Acetaminophen 325 MG Tab PO PRN (12:47)
[2023-09-20] MEDS: amLODIPine 5 MG Tab PO SCH (20:37)
[2023-09-20] MEDS: Montelukast 10 MG Tab PO SCH (20:38)
[2023-09-20] MEDS: Famotidine 20 MG Tab PO SCH (20:38)
[2023-09-20] MEDS: Gabapentin 400 MG Cap PO PRN (23:37)
[2023-09-21] MEDS: Carboxymethylcellulose Sodium 0.5% Ophth Soln 15 ML Bottle EYEBOTH SCH (10:58)
[2023-09-21] MEDS: Naproxen 500 MG Tab PO PRN (12:22)
[2023-09-21] MEDS ORDERED: Diclofenac Sodium 1% Gel 100 GM Tube TOP PRN (13:00)
[2023-09-21] MEDS: Cyclobenzaprine 10 MG Tab PO PRN (13:43)
[2023-09-21] MEDS: Gabapentin 400 MG Cap PO SCH (21:48)
[2023-09-21] MEDS: amLODIPine 2.5 MG Tab PO SCH (21:56)
[2023-09-21] MEDS: Lidocaine 4% 1 each Patch TOP PRN (23:11)
[2023-09-22] MEDS: Levothyroxine 25 MCG Tab PO SCH (05:49)
[2023-09-22] MEDS ORDERED: Polyethylene Glycol 3350 Powder 17 GM Packet PO PRN (08:59)
[2023-09-22] MEDS: Docusate Sodium 100 MG Cap PO PRN (17:12)
[2023-09-24 07:18] VITALS: BP 149/87; PULSE 86
== END 2023-09-24 07:30 | disposition home or self-care (01) | DRG 552 ==
LOC: FB.ED 15:18 → FB.MS 22:10 → OBSVTOIN 09-21 09:53
PROVIDERS: ADMIT Family Medicine; ATTEND Family Medicine
DX: S22.089A Unspecified fracture of T11-T12 vertebra, initial encounter for closed fracture (principal); S22.31XA Fracture of one rib, right side, initial encounter for closed fracture; N17.9 Acute kidney failure, unspecified; K59.09 Other constipation; H54.7 Unspecified visual loss; I10 Essential (primary) hypertension; G89.29 Other chronic pain; M54.2 Cervicalgia; M19.90 Unspecified osteoarthritis, unspecified site; G62.9 Polyneuropathy, unspecified; E03.9 Hypothyroidism, unspecified; E86.0 Dehydration; R79.89 Other specified abnormal findings of blood chemistry; E87.6 Hypokalemia; Z86.16 Personal history of COVID-19; V89.2XXA Person injured in unspecified motor-vehicle accident, traffic, initial encounter; Z88.5 Allergy status to narcotic agent; Z91.040 Latex allergy status; Z88.8 Allergy status to other drugs, medicaments and biological substances; Z91.048 Other nonmedicinal substance allergy status; Z88.6 Allergy status to analgesic agent; Z79.899 Other long term (current) drug therapy; Z79.52 Long term (current) use of systemic steroids; Z91.030 Bee allergy status; Z87.01 Personal history of pneumonia (recurrent); Z98.890 Other specified postprocedural states; Z90.89 Acquired absence of other organs; Z90.49 Acquired absence of other specified parts of digestive tract; Z98.1 Arthrodesis status
CPT/HCPCS: 36415; 71046; 71260; 72125; 72131; 74177; 80053; 81001; 82550; 83690; 84484; 85025; 86140; 90471; 90715; 96361; 96372; 96374; 97161-GP; 97165-GO; 97530-GP; 97535-GO; 99222; 99232; 99238; 99285; 99285-25; A9270-GY; G0378; J1650; J1885; J7030; Q9967

== ENCOUNTER 2023-11-26 13:11 | Emergency (ER) | payer MEDICARE, BC ==
[2023-11-26 13:33] VITALS: BP 112/83; PULSE 90
[2023-11-26] MEDS ORDERED: Sodium Chloride 0.9% 10 ML Syringe FLUSH PRN (13:45)
[2023-11-26 14:06] LABS: BASOPHILS PERCENT AUTO 0.4 % (0.2-1.5); EOSINOPHILS PERCENT AUTO 0.2 % (0.6-8.1); HEMATOCRIT 36.6 % (34.2-48.2); HEMOGLOBIN 12.4 g/dL (11.4-15.5); LYMPHOCYTES PERCENT AUTO 12.4 % (18.4-52.1); MEAN CORPUSCULAR HEMOGLOBIN 30.3 pg (23.9-33.9); MEAN CORPUSCULAR HGB CONC 33.9 g/dL (31.9-34.8); MEAN CORPUSCULAR VOLUME 89.5 fL (76.7-100.5); MEAN PLATELET VOLUME 8.8 fL (7.1-12.4); MONOCYTES ABSOLUTE AUTO 0.7 x10-3/uL (0.3-1.0); MONOCYTES PERCENT AUTO 8.7 % (4.4-15.7); NEUTROPHILS ABSOLUTE AUTO 6.2 x10-3/uL (1.5-6.3); NEUTROPHILS PERCENT AUTO 78.3 % (30.8-76.2); PLATELET COUNT,PLT 170 x10(3)uL (151-488); RED BLOOD CELL COUNT 4.09 x10(6)uL (3.60-5.20); RED CELL DISTRIBUTION WIDTH 12.8 % (12.3-16.5); WHITE BLOOD CELL COUNT,WBC 7.9 x10-3/uL (3.0-10.3)
[2023-11-26 14:16] LABS: BLOOD UREA NITROGEN,BUN 12 mg/dL (7-18); CALCIUM 9.3 mg/dL (8.6-10.2); CARBON DIOXIDE,CO2 28 mmol/L (21-32); CHLORIDE,CL 103 mmol/L (100-110); CREATININE 0.8 mg/dL (0.55-1.02); EST CRCL DRUG DOSING (CG) 47.23 mL/min; ESTIMATED GFR 76 mL/min (>60); GLUCOSE RANDOM 120 mg/dL (80-116); POTASSIUM,K 3.7 mmol/L (3.5-5.3); SODIUM,NA 140 mmol/L (135-145)
[2023-11-26 14:22] LABS: A/G RATIO 1.1; ALANINE AMINOTRANSFERASE,ALT 24 U/L (12-36); ALBUMIN 3.6 g/dL (3.2-4.6); ALKALINE PHOSPHATASE 96 IU/L (56-112); AMYLASE 32 U/L (25-115); ASPARTATE AMNIOTRANSFERASE,AST 25 IU/L (5-25); BILIRUBIN TOTAL 0.7 mg/dL (0.1-1.3)
[2023-11-26] MEDS: Ondansetron 4 MG/2 ML SDV IVPUSH ONE (14:30)
[2023-11-26] MEDS: Sodium Chloride 0.9% 1,000 ML IV SCH (14:30)
== END 2023-11-26 15:45 | disposition home or self-care (01) ==
LOC: FB.ED 13:11
DX: K58.9 Irritable bowel syndrome, unspecified (principal); J30.9 Allergic rhinitis, unspecified; H93.8X1 Other specified disorders of right ear; I10 Essential (primary) hypertension; E03.9 Hypothyroidism, unspecified; Z79.899 Other long term (current) drug therapy; Z79.890 Hormone replacement therapy; Z79.1 Long term (current) use of non-steroidal anti-inflammatories (NSAID); Z88.5 Allergy status to narcotic agent; Z91.048 Other nonmedicinal substance allergy status; Z91.040 Latex allergy status; Z88.4 Allergy status to anesthetic agent; Z88.8 Allergy status to other drugs, medicaments and biological substances; Z91.030 Bee allergy status
CPT/HCPCS: 36415; 80053; 82150; 83690; 85025; 87651; 96361; 96374; 99283; J2405; J7030; 99284

== ENCOUNTER 2024-01-15 17:22 | Emergency (ER) | payer MEDICARE, BC ==
[2024-01-15] MEDS: Metoprolol Tartrate 5 MG in Sodium Chloride 0.9% 50 ML IV ONE (17:37)
[2024-01-15] MEDS: Sodium Chloride 0.9% 1,000 ML IV ONE (17:41)
[2024-01-15] MEDS: Metoprolol Tartrate 5 MG/5 ML SDV IVPUSH ONE (17:42)
[2024-01-15] MEDS ORDERED: Metoprolol Tartrate 5 MG/5 ML SDV IVPUSH ONE (17:45)
[2024-01-15 17:56] LABS: BASOPHILS ABSOLUTE AUTO 0.1 x10-3/uL (0.0-0.1); BASOPHILS PERCENT AUTO 0.7 % (0.2-1.5); EOSINOPHILS PERCENT AUTO 0.1 % (0.6-8.1); HEMATOCRIT 41.2 % (34.2-48.2); HEMOGLOBIN 13.8 g/dL (11.4-15.5); LYMPHOCYTES ABSOLUTE AUTO 1.1 x10-3/uL (1.0-4.4); LYMPHOCYTES PERCENT AUTO 13.7 % (18.4-52.1); MEAN CORPUSCULAR HEMOGLOBIN 29.7 pg (23.9-33.9); MEAN CORPUSCULAR HGB CONC 33.5 g/dL (31.9-34.8); MEAN CORPUSCULAR VOLUME 88.6 fL (76.7-100.5); MEAN PLATELET VOLUME 8.9 fL (7.1-12.4); MONOCYTES ABSOLUTE AUTO 0.8 x10-3/uL (0.3-1.0); MONOCYTES PERCENT AUTO 10.2 % (4.4-15.7); NEUTROPHILS ABSOLUTE AUTO 5.9 x10-3/uL (1.5-6.3); NEUTROPHILS PERCENT AUTO 75.3 % (30.8-76.2); PLATELET COUNT,PLT 173 x10(3)uL (151-488); RED BLOOD CELL COUNT 4.65 x10(6)uL (3.60-5.20); RED CELL DISTRIBUTION WIDTH 13.7 % (12.3-16.5); WHITE BLOOD CELL COUNT,WBC 7.8 x10-3/uL (3.0-10.3)
[2024-01-15 17:59] LABS: BLOOD UREA NITROGEN,BUN 11 mg/dL (7-18); BUN/CREATININE RATIO 15.7 (9-20); CALCIUM 8.6 mg/dL (8.6-10.2); CARBON DIOXIDE,CO2 28 mmol/L (21-32); CHLORIDE,CL 104 mmol/L (100-110); CREATININE 0.7 mg/dL (0.55-1.02); EST CRCL DRUG DOSING (CG) 56.39 mL/min; ESTIMATED GFR 89 mL/min (>60); GLUCOSE RANDOM 113 mg/dL (80-116); POTASSIUM,K 3.8 mmol/L (3.5-5.3); SODIUM,NA 141 mmol/L (135-145)
[2024-01-15 18:04] LABS: ALANINE AMINOTRANSFERASE,ALT 19 U/L (12-36); ALBUMIN 3.4 g/dL (3.2-4.6); ALKALINE PHOSPHATASE 99 IU/L (56-112); ASPARTATE AMNIOTRANSFERASE,AST 13 IU/L (5-25); BILIRUBIN TOTAL 1.6 mg/dL (0.1-1.3); PROTEIN TOTAL,TP 6.8 g/dL (6.0-8.0)
[2024-01-15 18:08] LABS: LACTIC ACID 1.6 mmol/L (0.4-2.0)
[2024-01-15] MEDS: Metoprolol Succinate 25 MG Tab.ER PO ONE (18:24)
[2024-01-15 18:27] VITALS: BP 146/89; PULSE 90
== END 2024-01-15 19:15 | disposition home or self-care (01) ==
LOC: FB.ED 17:22
DX: I47.10 Supraventricular tachycardia, unspecified (principal); I10 Essential (primary) hypertension; E03.9 Hypothyroidism, unspecified; Z86.16 Personal history of COVID-19; Z90.49 Acquired absence of other specified parts of digestive tract; Z79.899 Other long term (current) drug therapy; Z88.9 Allergy status to unspecified drugs, medicaments and biological substances; Z88.5 Allergy status to narcotic agent; Z91.040 Latex allergy status; Z88.4 Allergy status to anesthetic agent; Z88.8 Allergy status to other drugs, medicaments and biological substances; Z91.030 Bee allergy status
CPT/HCPCS: 36415; 80053; 83605; 84484; 85025; 86140; 93005; 93010; 96361; 96374; 99284; 99285-25; A9270-GY; J3490; J7030

== ENCOUNTER 2025-02-13 14:06 | Emergency (ER) | payer MEDICARE, BC ==
[2025-02-13] MEDS ORDERED: Sodium Chloride 0.9% 10 ML Syringe FLUSH PRN (14:40)
[2025-02-13 14:56] LABS: MEAN PLATELET VOLUME 9.2 fL (7.1-12.4); PLATELET COUNT,PLT 166 x10(3)uL (151-488); RED BLOOD CELL COUNT 4.49 x10(6)uL (3.60-5.20); RED CELL DISTRIBUTION WIDTH 13.4 % (12.3-16.5); WHITE BLOOD CELL COUNT,WBC 10.4 x10-3/uL (3.0-10.3)
[2025-02-13 15:00] LABS: BLOOD UREA NITROGEN,BUN 18 mg/dL (7-18); CARBON DIOXIDE,CO2 25 mmol/L (21-32); CHLORIDE,CL 104 mmol/L (100-110); CREATININE 0.7 mg/dL (0.55-1.02); ESTIMATED GFR 88 mL/min (>60); GLUCOSE RANDOM 83 mg/dL (80-116); POTASSIUM,K 3.7 mmol/L (3.5-5.3); SODIUM,NA 143 mmol/L (135-145)
[2025-02-13 15:06] LABS: LYMPHOCYTES PERCENT MAN 5 % (13-37); MONOCYTES PERCENT MAN 4 % (4-12); SEG NEUTROPHILS PERCENT MAN 91 % (46-82)
[2025-02-13 15:07] LABS: A/G RATIO 1.2; ALANINE AMINOTRANSFERASE,ALT 22 U/L (12-36); ASPARTATE AMNIOTRANSFERASE,AST 21 IU/L (5-25); BILIRUBIN TOTAL 1.0 mg/dL (0.1-1.3); PROTEIN TOTAL,TP 7.1 g/dL (6.0-8.0)
[2025-02-13 16:17] VITALS: PULSE 88
[2025-02-13 16:39] VITALS: BP 155/80
== END 2025-02-13 16:39 | disposition home or self-care (01) ==
LOC: FB.ED 14:06
DX: R10.9 Unspecified abdominal pain (principal); R11.2 Nausea with vomiting, unspecified; I10 Essential (primary) hypertension; E03.9 Hypothyroidism, unspecified; Z88.8 Allergy status to other drugs, medicaments and biological substances; Z91.040 Latex allergy status; Z91.09 Other allergy status, other than to drugs and biological substances; Z91.048 Other nonmedicinal substance allergy status; Z79.890 Hormone replacement therapy; Z79.899 Other long term (current) drug therapy; Z86.16 Personal history of COVID-19; Z90.49 Acquired absence of other specified parts of digestive tract
CPT/HCPCS: 36415; 80053; 85025; 96361; 96374; 99283; 99284; J2765; J7030